=== PATIENT | male | born 1970 | race Caucasian/White ===

== ENCOUNTER 2017-09-25 09:06 | Emergency (ER) | payer BC, MEDICARE ==
[~2017-09-25] VITALS: Ht 182.9 cm; Wt 147.9 kg
[~2017-09-25 09:06] MED LIST: ATORVASTATIN CA20 MG PO; CLOPIDOGREL75 MG PO; ESIDRIX25 MG PO; FEOSOL325 MG PO; ISOSORBIDE DINI20 MG PO; LEVAQUIN500 MG PO; LOSARTAN-HCTZ1 EACH PO; METOPROLOL TART50 MG PO; NIFEDIPINE ER30 M1 PO; NITROGLYCERIN0.4 MG SL; PROCARDIA XL30 MG PO; PROTONIX40 MG PO; SODIUM BICARBO650 MG PO; TERAZOSIN HCL1 MG PO; TORSEMIDE10 MG PO
--- OUTSIDE RECORDS SUMMARY | 2017-09-25 09:10 | XMS REPORT ---
Author Author [facility] Address Unknown Phone Unavailable Care Team Providers Care Brim Setter Name Role Phone SUNSHINE PINA Unavailable Unavailable JEAN COMBS Unavailable Unavailable JACK BENNETT Unavailable Unavailable Problems This patient has no known problems. Allergies, Adverse Reactions, Alerts This patient has no known allergies or adverse reactions. Medications This patient has no known medications. Results Test Description Test Time Test Comments Text Results Atomic Results Result Comments POCT-ACT 2017-04-27 18:57:00 ACTIVATED CLOTTING TIME (BEAKER) (test yyxs=208) 120 sec TESTED AT [place] [address] [id number] 18:57:00* Test Item Value Reference Range Comments ACTIVATED CLOTTING TIME (BEAKER) (test tqee=543) 384 sec TESTED AT [place] [address] [id number] 18:57:00* Test Item Value Reference Range Comments ACTIVATED CLOTTING TIME (BEAKER) (test ymhz=133) 499 sec TESTED AT [place] [address] POCT-GLUCOSE [id number] 07:46:00* Test Item Value Reference Range Comments POC-GLUCOSE METER (BEAKER) (test dbfl=5020) 199 mg/dL 70-110 TESTED AT [place] [address] BASIC METABOLIC [id number] 07:14:00* Test Item Value Reference Range Comments SODIUM (BEAKER) (test znrr=577) 137 meq/L 136-145 POTASSIUM (BEAKER) (test bbdt=208) 4.2 meq/L 3.5-5.1 CHLORIDE (BEAKER) (test memq=239) 99 meq/L 98-107 CO2 (BEAKER) (test qjxs=055) 28 meq/L 22-29 BLOOD UREA NITROGEN (BEAKER) (test vktg=972) 52 mg/dL 7-21 CREATININE (BEAKER) (test bizn=869) 5.41 mg/dL 0.57-1.25 GLUCOSE RANDOM (BEAKER) (test pqvq=367) 178 mg/dL 70-105 CALCIUM (BEAKER) (test ravs=284) 8.6 mg/dL 8.4-10.2 EGFR (BEAKER) (test bzuz=3943) 11 mL/min/1.73 sq m ESTIMATED GFR IS NOT ACCURATE CREATININE CLEARANCE IN PREDICTING GLOMERULAR FILTRATION RATE. ESTIMATED GFR IS NOT APPLICABLE FOR DIALYSIS PATIENTS. CBC W/PLT COUNT & AUTO [id number] 05:18:00* Test Item Value Reference Range Comments WHITE BLOOD CELL COUNT (BEAKER) (test tutu=209) 9.0 K/ L 3.5-10.5 RED BLOOD CELL COUNT (BEAKER) (test zuvl=708) 2.99 M/ L 4.63-6.08 HEMOGLOBIN (BEAKER) (test kyxo=660) 9.3 GM/DL 13.7-17.5 HEMATOCRIT (BEAKER) (test nnrv=420) 29.2 % 40.1-51.0 MEAN CORPUSCULAR VOLUME (BEAKER) (test cmos=820) 97.7 fL 79.0-92.2 MEAN CORPUSCULAR HEMOGLOBIN (BEAKER) (test vmzf=501) 31.1 pg 25.7-32.2 MEAN CORPUSCULAR HEMOGLOBIN CONC (BEAKER) (test gbux=160) 31.8 GM/DL 32.3- 36.5 RED CELL DISTRIBUTION WIDTH (BEAKER) (test ijmu=315) 14.3 % 11.6-14.4 PLATELET COUNT (BEAKER) (test vdpb=964) 119 K/CU MM 150-450 MEAN PLATELET VOLUME (BEAKER) (test crwy=513) 11.8 fL 9.4-12.4 NUCLEATED RED BLOOD CELLS (BEAKER) (test ahxd=154) 0 /100 WBC 0-0 NEUTROPHILS RELATIVE PERCENT (BEAKER) (test gszs=489) 64 % LYMPHOCYTES RELATIVE PERCENT (BEAKER) (test mwxu=713) 22 % MONOCYTES RELATIVE PERCENT (BEAKER) (test zops=027) 11 % EOSINOPHILS RELATIVE PERCENT (BEAKER) (test rplu=224) 2 % BASOPHILS RELATIVE PERCENT (BEAKER) (test xgez=702) 0 % NEUTROPHILS ABSOLUTE COUNT (BEAKER) (test aztp=038) 5.76 K/ L 1.78-5.38 LYMPHOCYTES ABSOLUTE COUNT (BEAKER) (test fqil=934) 2.00 K/ L 1.32-3.57 MONOCYTES ABSOLUTE COUNT (BEAKER) (test ygiu=780) 1.00 K/ L 0.30-0.82 EOSINOPHILS ABSOLUTE COUNT (BEAKER) (test xvsb=871) 0.17 K/ L 0.04-0.54 BASOPHILS ABSOLUTE COUNT (BEAKER) (test vtvg=084) 0.04 K/ L 0.01-0.08 IMMATURE GRANULOCYTES-RELATIVE PERCENT (BEAKER) (test vmtt=8805) 0 % 0-1 POCT-GLUCOSE [id number] 00:25:00* Test Item Value Reference Range Comments POC-GLUCOSE METER (BEAKER) (test brni=8388) 241 mg/dL 70-110 TESTED AT [place] [id number] POCT-GLUCOSE [id number] 00:25:00* Test Item Value Reference Range Comments POC-GLUCOSE METER (BEAKER) (test xnit=4910) 128 mg/dL 70-110 TESTED AT [place] [address] POCT-GLUCOSE [id number] 22:15:00* Test Item Value Reference Range Comments POC-GLUCOSE METER (BEAKER) (test gvyy=9180) 171 mg/dL 70-110 TESTED AT [place] [address] POCT-GLUCOSE [id number] 17:41:00* Test Item Value Reference Range Comments POC-GLUCOSE METER (BEAKER) (test hkxp=3590) 210 mg/dL 70-110 [address]ED AT [address] [address] POCT-GLUCOSE [id number] 12:36:00* Test Item Value Reference Range Comments POC-GLUCOSE METER (BEAKER) (test gfhv=5688) 209 mg/dL 70-110 TESTED AT [address] [address] POCT-GLUCOSE [id number] 09:00:00* Test Item Value Reference Range Comments POC-GLUCOSE METER (BEAKER) (test nvmw=9763) 214 mg/dL 70-110 TESTED AT [place] [address] BASIC METABOLIC [id number] 06:35:00* Test Item Value Reference Range Comments SODIUM (BEAKER) (test hmip=372) 140 meq/L 136-145 POTASSIUM (BEAKER) (test mazx=473) 4.0 meq/L 3.5-5.1 CHLORIDE (BEAKER) (test ciff=021) 102 meq/L 98-107 CO2 (BEAKER) (test curq=984) 28 meq/L 22-29 BLOOD UREA NITROGEN (BEAKER) (test hdxv=292) 36 mg/dL 7-21 CREATININE (BEAKER) (test zohh=981) 4.38 mg/dL 0.57-1.25 GLUCOSE RANDOM (BEAKER) (test nvnr=994) 203 mg/dL 70-105 CALCIUM (BEAKER) (test onkf=563) 9.0 mg/dL 8.4-10.2 EGFR (BEAKER) (test oxog=6588) 15 mL/min/1.73 sq m ESTIMATED GFR IS NOT ACCURATE CREATININE CLEARANCE IN PREDICTING GLOMERULAR FILTRATION RATE. ESTIMATED GFR IS NOT APPLICABLE FOR DIALYSIS PATIENTS. RAD, CHEST, 1 VIEW, NON [id number] 06:33:00Reason for exam:->pulmonary congestionShould this be performed at the bedside?->YesFINAL REPORT RAD, CHEST, 1 VIEW, NON DEPT INDICATION: pulmonary congestion COMPARISON: Prior day's exam FINDINGS: Portable frontal view of the chest. IMPRESSION: Support Lines: [place] catheter has been removed. Surgical drains are present, unchanged. Lungs and pleura: Minimal left subsegmental atelectasis and trace effusion. No pneumothorax.Heart and mediastinum: Stable contours. Stable surgical changes.Additional findings: None. Signed: JR Hogan Robert MDReport Verified Date/Time: 04/24/2017 06:33:56 Reading Location: [facility] C013Y CT Body Reading Room W/PLT COUNT & AUTO [id number] 06:08:00* Test Item Value Reference Range Comments WHITE BLOOD CELL COUNT (BEAKER) (test xvxg=471) 9.2 K/ L 3.5-10.5 RED BLOOD CELL COUNT (BEAKER) (test fdxx=042) 3.22 M/ L 4.63-6.08 HEMOGLOBIN (BEAKER) (test ostq=700) 9.9 GM/DL 13.7-17.5 HEMATOCRIT (BEAKER) (test jcht=263) 31.2 % 40.1-51.0 MEAN CORPUSCULAR VOLUME (BEAKER) (test xjci=510) 96.9 fL 79.0-92.2 MEAN CORPUSCULAR HEMOGLOBIN (BEAKER) (test sdus=064) 30.7 pg 25.7-32.2 MEAN CORPUSCULAR HEMOGLOBIN CONC (BEAKER) (test stqk=881) 31.7 GM/DL 32.3- 36.5 RED CELL DISTRIBUTION WIDTH (BEAKER) (test zgbp=027) 14.4 % 11.6-14.4 PLATELET COUNT (BEAKER) (test ljnd=856) 118 K/CU MM 150-450 MEAN PLATELET VOLUME (BEAKER) (test meop=571) 11.4 fL 9.4-12.4 NUCLEATED RED BLOOD CELLS (BEAKER) (test ullf=564) 0 /100 WBC 0-0 NEUTROPHILS RELATIVE PERCENT (BEAKER) (test jpos=338) 70 % LYMPHOCYTES RELATIVE PERCENT (BEAKER) (test jvfd=577) 18 % MONOCYTES RELATIVE PERCENT (BEAKER) (test rnni=130) 11 % EOSINOPHILS RELATIVE PERCENT (BEAKER) (test njsj=684) 0 % BASOPHILS RELATIVE PERCENT (BEAKER) (test adjb=400) 1 % NEUTROPHILS ABSOLUTE COUNT (BEAKER) (test qhhh=749) 6.40 K/ L 1.78-5.38 LYMPHOCYTES ABSOLUTE COUNT (BEAKER) (test zuai=641) 1.64 K/ L 1.32-3.57 MONOCYTES ABSOLUTE COUNT (BEAKER) (test olah=254) 0.99 K/ L 0.30-0.82 EOSINOPHILS ABSOLUTE COUNT (BEAKER) (test eksx=444) 0.04 K/ L 0.04-0.54 BASOPHILS ABSOLUTE COUNT (BEAKER) (test noaq=764) 0.05 K/ L 0.01-0.08 IMMATURE GRANULOCYTES-RELATIVE PERCENT (BEAKER) (test ojyz=4998) 0 % 0-1 HEPATITIS B SURFACE [id number] 03:15:00* Test Item Value Reference Range Comments HEPATITIS B SURFACE ANTIGEN (2) (BEAKER) (test vypp=8148) Nonreactive Nonreactive HEPATITIS B SURFACE [id number] 00:46:00* Test Item Value Reference Range Comments HEPATITIS B SURFACE ANTIGEN (2) (BEAKER) (test ictd=0558) Nonreactive Nonreactive POCT-GLUCOSE [id number] 00:00:00* Test Item Value Reference Range Comments POC-GLUCOSE METER (BEAKER) (test hqto=9827) 163 mg/dL 70-110 TESTED AT [place] [id number] [facility] [address] POCT-GLUCOSE [id number] 16:44:00* Test Item Value Reference Range Comments POC-GLUCOSE METER (BEAKER) (test mqcy=3628) 214 mg/dL 70-110 TESTED AT [address] [address] POCT-GLUCOSE [id number] 13:40:00* Test Item Value Reference Range Comments POC-GLUCOSE METER (BEAKER) (test oiyn=4333) 233 mg/dL 70-110 TESTED AT [address] [address] RAD, CHEST, 1 VIEW, NON [id number] 08:38:00Reason for exam:->s/p cardiac surgeryFINAL REPORT Chest one view INDICATION: Cardiac surgery COMPARISON: 04/22/2017 IMPRESSION: ET and NG tube have been removed. Right jugular PA catheter extends to the pulmonary outflow tract. Left chest tube and mediastinal drain and median sternotomy changes are present. Small volume pericardial gas is again noted. The cardiac silhouette is enlarged. There are low lung volumes with vascular congestion and increased interstitial, perihilar, and basilar opacities suggesting worsening atelectasis and edema. Pneumonitis should be excluded clinically. Minimal pleural effusions may be present. No pneumothorax is seen. Signed: Jr Brunner MDReport Verified Date/Time: 04/23/2017 08:38:50 Reading Location: [facility] Radiology Reading Room -GLUCOSE [id number] 06:13:00* Test Item Value Reference Range Comments POC-GLUCOSE METER (BEAKER) (test bkgw=6830) 134 mg/dL 70-110 TESTED AT [address] [address] BASIC METABOLIC [id number] 05:35:00* Test Item Value Reference Range Comments SODIUM (BEAKER) (test lkph=439) 137 meq/L 136-145 POTASSIUM (BEAKER) (test wnwk=343) 4.3 meq/L 3.5-5.1 CHLORIDE (BEAKER) (test hcxg=752) 100 meq/L 98-107 CO2 (BEAKER) (test mbtv=714) 24 meq/L 22-29 BLOOD UREA NITROGEN (BEAKER) (test acjp=503) 54 mg/dL 7-21 CREATININE (BEAKER) (test sxcl=237) 5.19 mg/dL 0.57-1.25 GLUCOSE RANDOM (BEAKER) (test gzce=353) 129 mg/dL 70-105 CALCIUM (BEAKER) (test kkdz=517) 9.1 mg/dL 8.4-10.2 EGFR (BEAKER) (test lhmq=5494) 12 mL/min/1.73 sq m ESTIMATED GFR IS NOT ACCURATE CREATININE CLEARANCE IN PREDICTING GLOMERULAR FILTRATION RATE. ESTIMATED GFR IS NOT APPLICABLE FOR DIALYSIS PATIENTS. [id number] 05:19:00* Test Item Value Reference Range Comments PHOSPHORUS (BEAKER) (test bfhn=293) 5.2 mg/dL 2.3-4.7 [id number] 05:19:00* Test Item Value Reference Range Comments MAGNESIUM (BEAKER) (test rjhb=194) 2.4 mg/dL 1.6-2.6 CBC W/PLT COUNT & AUTO [id number] 03:43:00* Test Item Value Reference Range Comments WHITE BLOOD CELL COUNT (BEAKER) (test mkyo=442) 10.1 K/ L 3.5-10.5 RED BLOOD CELL COUNT (BEAKER) (test cgqx=367) 3.29 M/ L 4.63-6.08 HEMOGLOBIN (BEAKER) (test reqp=028) 10.2 GM/DL 13.7-17.5 HEMATOCRIT (BEAKER) (test vzny=324) 31.5 % 40.1-51.0 MEAN CORPUSCULAR VOLUME (BEAKER) (test mnzf=245) 95.7 fL 79.0-92.2 MEAN CORPUSCULAR HEMOGLOBIN (BEAKER) (test ljgn=329) 31.0 pg 25.7-32.2 MEAN CORPUSCULAR HEMOGLOBIN CONC (BEAKER) (test xnlc=581) 32.4 GM/DL 32.3- 36.5 RED CELL DISTRIBUTION WIDTH (BEAKER) (test musz=368) 14.1 % 11.6-14.4 PLATELET COUNT (BEAKER) (test mwjc=545) 134 K/CU MM 150-450 MEAN PLATELET VOLUME (BEAKER) (test lknu=589) 11.0 fL 9.4-12.4 NUCLEATED RED BLOOD CELLS (BEAKER) (test hzxm=333) 0 /100 WBC 0-0 NEUTROPHILS RELATIVE PERCENT (BEAKER) (test vbln=737) 78 % LYMPHOCYTES RELATIVE PERCENT (BEAKER) (test ngzb=081) 11 % MONOCYTES RELATIVE PERCENT (BEAKER) (test tjzn=011) 11 % EOSINOPHILS RELATIVE PERCENT (BEAKER) (test kmta=441) 0 % BASOPHILS RELATIVE PERCENT (BEAKER) (test ycfc=702) 0 % NEUTROPHILS ABSOLUTE COUNT (BEAKER) (test cwdj=732) 7.90 K/ L 1.78-5.38 LYMPHOCYTES ABSOLUTE COUNT (BEAKER) (test uusc=303) 1.06 K/ L 1.32-3.57 MONOCYTES ABSOLUTE COUNT (BEAKER) (test celp=266) 1.06 K/ L 0.30-0.82 EOSINOPHILS ABSOLUTE COUNT (BEAKER) (test kmyl=199) 0.01 K/ L 0.04-0.54 BASOPHILS ABSOLUTE COUNT (BEAKER) (test asdw=882) 0.03 K/ L 0.01-0.08 IMMATURE GRANULOCYTES-RELATIVE PERCENT (BEAKER) (test pvrm=9392) 0 % 0-1 POCT-GLUCOSE [id number] 23:37:00* Test Item Value Reference Range Comments POC-GLUCOSE METER (BEAKER) (test kkwf=0649) 135 mg/dL 70-110 TESTED AT [facility] [address] [facility] [address] POCT-GLUCOSE [id number] 18:55:00* Test Item Value Reference Range Comments POC-GLUCOSE METER (BEAKER) (test bmij=2444) 189 mg/dL 70-110 TESTED AT [facility] [address] [facility] [address] POCT-GLUCOSE [id number] 17:35:00* Test Item Value Reference Range Comments POC-GLUCOSE METER (BEAKER) (test mesu=2616) 200 mg/dL 70-110 TESTED AT [facility] [address] [facility] [address] RAD, CHEST, 1 VIEW, NON [id number] 16:54:00Reason for exam:->sp cardiac surgery/intubationShould this be performed at the bedside?->YesFINAL REPORT Chest, AP view. History: Postoperative. Comparison: Cardiac surgery. Discussion: Interval sternotomy. Endotracheal tube in satisfactory position. Sternal/pleural drain noted on the left. Right IJ pulmonary artery catheter present with tip near main pulmonary artery. No focal airspace disease, pleural effusion or pneumothorax. Signed: Dorothy Cordova MDReport Verified Date/Time: 04/22/2017 16:54:03 Reading Location: [facility] Reading Room Electronically signed by: DOROTHY CORDOVA M.D. on 2016 04:54 PM [id number] 16:34:00* Test Item Value Reference Range Comments POTASSIUM (BEAKER) (test oyfc=336) 4.1 meq/L 3.5-5.1 [id number] 16:34:00* Test Item Value Reference Range Comments GLUCOSE RANDOM (BEAKER) (test umrb=781) 209 mg/dL 70-105 BASIC METABOLIC [id number] 16:34:00* Test Item Value Reference Range Comments SODIUM (BEAKER) (test bsdp=395) 139 meq/L 136-145 POTASSIUM (BEAKER) (test xwyu=599) 4.1 meq/L 3.5-5.1 CHLORIDE (BEAKER) (test sfeb=221) 99 meq/L 98-107 CO2 (BEAKER) (test uwzb=935) 26 meq/L 22-29 BLOOD UREA NITROGEN (BEAKER) (test pjni=261) 52 mg/dL 7-21 CREATININE (BEAKER) (test elnf=722) 4.73 mg/dL 0.57-1.25 GLUCOSE RANDOM (BEAKER) (test xhfk=395) 209 mg/dL 70-105 CALCIUM (BEAKER) (test qvuj=646) 9.3 mg/dL 8.4-10.2 EGFR (BEAKER) (test grvs=8137) 13 mL/min/1.73 sq m ESTIMATED GFR IS NOT ACCURATE CREATININE CLEARANCE IN PREDICTING GLOMERULAR FILTRATION RATE. ESTIMATED GFR IS NOT APPLICABLE FOR DIALYSIS PATIENTS. LACTIC ACID, ARTERIAL, WHOLE [id number] 16:31:00* Test Item Value Reference Range Comments LACTATE BLOOD ARTERIAL (2) (BEAKER) (test dmfl=7924) 1.7 mmol/L 0.5-2.2 Effective 09/18/2015: Units/Reference Range ChangeNew: 0.5-2.2 mmol/L Previous: 5 -20 mg/dLOXYGEN SATURATION, [id number] 16:10:00* Test Item Value Reference Range Comments O2 SATURATION (MEASURED) (BEAKER) (test hmgh=8041) 84.7 % CALCIUM, [id number] 16:09:00* Test Item Value Reference Range Comments CALCIUM IONIZED (BEAKER) (test xoks=213) 1.10 mmol/L 1.12-1.27 PH, BLOOD (BEAKER) (test ipmz=6930) 7.47 CBC (HEMOGRAM ONLY)2017-04-22 16:09:00* Test Item Value Reference Range Comments WHITE BLOOD CELL COUNT (BEAKER) (test xtvg=070) 12.2 K/ L 3.5-10.5 RED BLOOD CELL COUNT (BEAKER) (test frvu=013) 3.22 M/ L 4.63-6.08 HEMOGLOBIN (BEAKER) (test ahyq=419) 10.1 GM/DL 13.7-17.5 HEMATOCRIT (BEAKER) (test sbsm=447) 30.2 % 40.1-51.0 MEAN CORPUSCULAR VOLUME (BEAKER) (test mzcp=587) 93.8 fL 79.0-92.2 MEAN CORPUSCULAR HEMOGLOBIN (BEAKER) (test jzkk=640) 31.4 pg 25.7-32.2 MEAN CORPUSCULAR HEMOGLOBIN CONC (BEAKER) (test clut=774) 33.4 GM/DL 32.3- 36.5 RED CELL DISTRIBUTION WIDTH (BEAKER) (test sspc=131) 14.0 % 11.6-14.4 PLATELET COUNT (BEAKER) (test bpfx=174) 134 K/CU MM 150-450 MEAN PLATELET VOLUME (BEAKER) (test vgpx=909) 10.6 fL 9.4-12.4 NUCLEATED RED BLOOD CELLS (BEAKER) (test odgn=608) 0 /100 WBC 0-0 BLOOD GAS, [id number] 16:06:00* Test Item Value Reference Range Comments PH ARTERIAL (BEAKER) (test aqcn=415) 7.51 7.35-7.45 PCO2 ARTERIAL (BEAKER) (test vwjy=632) 36 mmHg 35-45 PO2 ARTERIAL (BEAKER) (test psmz=367) 265 mmHg 80-90 O2 SATURATION ARTERIAL (BEAKER) (test gmsk=008) 99.7 % 96.0-97.0 HCO3 ARTERIAL (BEAKER) (test trmd=727) 29 mmol/L 21-29 BASE EXCESS ARTERIAL (BEAKER) (test uzyq=869) 4.8 mmol/L -2.0-3.0 PATIENT TEMPERATURE (BEAKER) (test edix=2600) 34.5 C FIO2 (BEAKER) (test qnva=8135) 60.0 % GLUCOSE-STAT [id number] 16:06:00* Test Item Value Reference Range Comments GLUCOSE RANDOM (BEAKER) (test mlbo=101) 198 mg/dL 70-110 HGB/HCT (H&H) - STAT [id number] 16:06:00* Test Item Value Reference Range Comments HEMOGLOBIN (BEAKER) (test tupi=123) 10.7 g/dL 13.0-16.8 HEMATOCRIT (BEAKER) (test nhaz=398) 31.0 % 40.0-50.0 SODIUM NA-STAT [id number] 16:05:00* Test Item Value Reference Range Comments SODIUM (BEAKER) (test vcki=362) 135 meq/L 135-148 POTASSIUM-STAT [id number] 16:05:00* Test Item Value Reference Range Comments POTASSIUM (BEAKER) (test qjco=144) 3.8 meq/L 3.6-5.5 BLOOD GAS, [id number] 13:56:00* Test Item Value Reference Range Comments PH ARTERIAL (BEAKER) (test gqud=275) 7.55 7.35-7.45 PCO2 ARTERIAL (BEAKER) (test sgbq=458) 34 mmHg 35-45 PO2 ARTERIAL (BEAKER) (test sozp=583) 261 mmHg 80-90 O2 SATURATION ARTERIAL (BEAKER) (test zkuy=778) 99.7 % 96.0-97.0 HCO3 ARTERIAL (BEAKER) (test xrqs=188) 29 mmol/L 21-29 BASE EXCESS ARTERIAL (BEAKER) (test owns=521) 5.7 mmol/L -2.0-3.0 PATIENT TEMPERATURE (BEAKER) (test qodh=8369) 34.7 C FIO2 (BEAKER) (test luva=4879) 60.0 % SODIUM NA-STAT [id number] 13:56:00* Test Item Value Reference Range Comments SODIUM (BEAKER) (test ncro=620) 134 meq/L 135-148 GLUCOSE-STAT [id number] 13:56:00* Test Item Value Reference Range Comments GLUCOSE RANDOM (BEAKER) (test ogxv=588) 179 mg/dL 70-110 HGB/HCT (H&H) - STAT [id number] 13:56:00* Test Item Value Reference Range Comments HEMOGLOBIN (BEAKER) (test xcrp=689) 11.3 g/dL 13.0-16.8 HEMATOCRIT (BEAKER) (test dvqp=141) 33.0 % 40.0-50.0 CALCIUM, [id number] 13:56:00* Test Item Value Reference Range Comments CALCIUM IONIZED (BEAKER) (test djkl=321) 1.01 mmol/L 1.12-1.27 PH, BLOOD (BEAKER) (test gxrb=6595) 7.51 POTASSIUM-STAT [id number] 13:55:00* Test Item Value Reference Range Comments POTASSIUM (BEAKER) (test pmgd=295) 3.7 meq/L 3.6-5.5 SODIUM NA-STAT [id number] 12:03:00* Test Item Value Reference Range Comments SODIUM (BEAKER) (test qdrq=182) 138 meq/L 135-148 BLOOD GAS, [id number] 12:02:00* Test Item Value Reference Range Comments PH ARTERIAL (BEAKER) (test pvdp=750) 7.49 7.35-7.45 PCO2 ARTERIAL (BEAKER) (test eykw=761) 42 mm Hg 35-45 PO2 ARTERIAL (BEAKER) (test qrms=083) 414 mm Hg 80-90 O2 SATURATION ARTERIAL (BEAKER) (test efny=956) 99.8 % 96.0-97.0 HCO3 ARTERIAL (BEAKER) (test mmrp=280) 31 mmol/L 21-29 BASE EXCESS ARTERIAL (BEAKER) (test vbug=045) 6.7 mmol/L -2.0-3.0 PATIENT TEMPERATURE (BEAKER) (test jxwh=6749) 36.0 FIO2 (BEAKER) (test gmlt=2360) 97 GLUCOSE-STAT [id number] 12:02:00* Test Item Value Reference Range Comments GLUCOSE RANDOM (BEAKER) (test ncrt=472) 194 mg/dL 70-110 HGB/HCT (H&H) - STAT [id number] 12:02:00* Test Item Value Reference Range Comments HEMOGLOBIN (BEAKER) (test kuql=945) 11.6 GM/DL 13.0-16.8 HEMATOCRIT (BEAKER) (test pjse=367) 34.0 % 40.0-50.0 POTASSIUM-STAT [id number] 12:02:00* Test Item Value Reference Range Comments POTASSIUM (BEAKER) (test bajd=752) 4.0 meq/L 3.6-5.5 RAD, CHEST, 2 [id number] 15:51:00Reason for exam:->pre opFINAL REPORT Chest, 2 views. Clinical History: pre op Comparison Study : June 23, 2016 Findings: The heart and lungs are within normal limits. The pleural spaces are clear. No significant bony or soft tissue abnormalities are seen. Impression: No active cardiopulmonary disease. Signed: Richard Arisa Verified Date/Time: 04/20/2017 15:51:22 Reading Location: [address] Radiology Reading Room ALYSIS W/ [id number] 15:47:00* Test Item Value Reference Range Comments COLOR (BEAKER) (test dklz=016) Light Yellow CLARITY (BEAKER) (test mvne=550) Clear SPECIFIC GRAVITY UA (BEAKER) (test ruej=671) 1.006 1.001-1.035 PH UA (BEAKER) (test wllh=312) 7.0 5.0-8.0 PROTEIN UA (BEAKER) (test zfjb=901) 50 mg/dL Negative GLUCOSE UA (BEAKER) (test lcch=872) 70 mg/dL Negative KETONES UA (BEAKER) (test pnxw=605) Negative Negative BILIRUBIN UA (BEAKER) (test kjnj=375) Negative Negative BLOOD UA (BEAKER) (test jjbn=490) Negative Negative NITRITE UA (BEAKER) (test nbgx=429) Negative Negative LEUKOCYTE ESTERASE UA (BEAKER) (test hcyv=219) Negative Negative UROBILINOGEN UA (BEAKER) (test phku=060) 0.2 mg/dL 0.2-1.0 RBC UA (BEAKER) (test ttac=021) 0 /HPF WBC UA (BEAKER) (test fatc=731) 2 /HPF SQUAMOUS EPITHELIAL (BEAKER) (test lntl=117) 3 /HPF SOURCE(BEAKER) (test egch=9183) BASIC METABOLIC [id number] 15:43:00* Test Item Value Reference Range Comments SODIUM (BEAKER) (test dzoo=332) 141 meq/L 136-145 POTASSIUM (BEAKER) (test lbac=842) 5.0 meq/L 3.5-5.1 CHLORIDE (BEAKER) (test otke=362) 97 meq/L 98-107 CO2 (BEAKER) (test lfcv=859) 31 meq/L 22-29 BLOOD UREA NITROGEN (BEAKER) (test wfym=293) 55 mg/dL 7-21 CREATININE (BEAKER) (test yfgk=809) 4.87 mg/dL 0.57-1.25 GLUCOSE RANDOM (BEAKER) (test bjkr=847) 152 mg/dL 70-105 CALCIUM (BEAKER) (test jnhv=350) 10.1 mg/dL 8.4-10.2 EGFR (BEAKER) (test tbot=9094) 13 mL/min/1.73 sq m ESTIMATED GFR IS NOT ACCURATE CREATININE CLEARANCE IN PREDICTING GLOMERULAR FILTRATION RATE. ESTIMATED GFR IS NOT APPLICABLE FOR DIALYSIS PATIENTS. [id number] 15:34:00* Test Item Value Reference Range Comments PARTIAL THROMBOPLASTIN TIME (BEAKER) (test nirn=467) 27.3 seconds 22.5-36.0 PROTHROMBIN TIME/[id number] 15:33:00* Test Item Value Reference Range Comments PROTIME (BEAKER) (test bdiu=339) 11.9 seconds 11.7-14.7 INR (BEAKER) (test obzm=475) 0.9 <=5.9 RECOMMENDED COUMADIN/WARFARIN INR THERAPY RANGESSTANDARD DOSE: 2.0 - 3.0 Includes: PROPHYLAXIS for venous thrombosis, systemic embolization; TREATMENT for venous thrombosis and/or pulmonary embolus.HIGH RISK: Target INR is 2.5-3.5 for patients with mechanical heart valves.CBC W/PLT COUNT & AUTO [id number] 15:21:00* Test Item Value Reference Range Comments WHITE BLOOD CELL COUNT (BEAKER) (test rigv=212) 9.1 K/ L 3.5-10.5 RED BLOOD CELL COUNT (BEAKER) (test nlkf=583) 3.97 M/ L 4.63-6.08 HEMOGLOBIN (BEAKER) (test znkv=515) 12.4 GM/DL 13.7-17.5 HEMATOCRIT (BEAKER) (test qobz=115) 38.5 % 40.1-51.0 MEAN CORPUSCULAR VOLUME (BEAKER) (test grjr=783) 97.0 fL 79.0-92.2 MEAN CORPUSCULAR HEMOGLOBIN (BEAKER) (test hcct=546) 31.2 pg 25.7-32.2 MEAN CORPUSCULAR HEMOGLOBIN CONC (BEAKER) (test hxne=013) 32.2 GM/DL 32.3- 36.5 RED CELL DISTRIBUTION WIDTH (BEAKER) (test xcii=327) 13.9 % 11.6-14.4 PLATELET COUNT (BEAKER) (test lscr=892) 230 K/CU MM 150-450 MEAN PLATELET VOLUME (BEAKER) (test qgnq=640) 10.4 fL 9.4-12.4 NUCLEATED RED BLOOD CELLS (BEAKER) (test fosl=017) 0 /100 WBC 0-0 NEUTROPHILS RELATIVE PERCENT (BEAKER) (test xose=099) 60 % LYMPHOCYTES RELATIVE PERCENT (BEAKER) (test usbh=991) 28 % MONOCYTES RELATIVE PERCENT (BEAKER) (test imsu=429) 9 % EOSINOPHILS RELATIVE PERCENT (BEAKER) (test bgjp=024) 2 % BASOPHILS RELATIVE PERCENT (BEAKER) (test siyq=639) 1 % NEUTROPHILS ABSOLUTE COUNT (BEAKER) (test jryc=207) 5.46 K/ L 1.78-5.38 LYMPHOCYTES ABSOLUTE COUNT (BEAKER) (test ccyt=777) 2.53 K/ L 1.32-3.57 MONOCYTES ABSOLUTE COUNT (BEAKER) (test dgel=162) 0.85 K/ L 0.30-0.82 EOSINOPHILS ABSOLUTE COUNT (BEAKER) (test nwzd=593) 0.15 K/ L 0.04-0.54 BASOPHILS ABSOLUTE COUNT (BEAKER) (test twqo=319) 0.05 K/ L 0.01-0.08 IMMATURE GRANULOCYTES-RELATIVE PERCENT (BEAKER) (test rhqw=1298) 1 % 0-1 [id number] 18:52:00* Test Item Value Reference Range Comments ACTIVATED CLOTTING TIME (BEAKER) (test lvpw=009) 158 sec TESTED AT [place] [address] [id number] 18:16:00* Test Item Value Reference Range Comments ACTIVATED CLOTTING TIME (BEAKER) (test kfay=359) 169 sec TESTED AT [place] [address] [id number] 17:41:00* Test Item Value Reference Range Comments ACTIVATED CLOTTING TIME (BEAKER) (test bbsk=870) 175 sec TESTED AT [place] [address] [id number] 16:39:00* Test Item Value Reference Range Comments ACTIVATED CLOTTING TIME (BEAKER) (test uixv=249) 202 sec TESTED AT [place] [address] [id number] 15:45:00* Test Item Value Reference Range Comments ACTIVATED CLOTTING TIME (BEAKER) (test nbpg=759) 202 sec TESTED AT [place] [address] BASIC METABOLIC [id number] 12:29:00* Test Item Value Reference Range Comments SODIUM (BEAKER) (test ntyr=429) 138 meq/L 136-145 POTASSIUM (BEAKER) (test kyci=916) 4.5 meq/L 3.5-5.1 CHLORIDE (BEAKER) (test oteu=877) 97 meq/L 98-107 CO2 (BEAKER) (test lyng=440) 29 meq/L 22-29 BLOOD UREA NITROGEN (BEAKER) (test slhw=445) 55 mg/dL 7-21 CREATININE (BEAKER) (test fmzi=610) 5.51 mg/dL 0.57-1.25 GLUCOSE RANDOM (BEAKER) (test tsee=843) 279 mg/dL 70-105 CALCIUM (BEAKER) (test urwr=505) 9.6 mg/dL 8.4-10.2 EGFR (BEAKER) (test lckw=2439) 11 mL/min/1.73 sq m ESTIMATED GFR IS NOT ACCURATE CREATININE CLEARANCE IN PREDICTING GLOMERULAR FILTRATION RATE. ESTIMATED GFR IS NOT APPLICABLE FOR DIALYSIS PATIENTS. PT/[id number] 12:19:00* Test Item Value Reference Range Comments PROTIME (BEAKER) (test zqou=037) 12.7 seconds 11.7-14.7 INR (BEAKER) (test rfyh=560) 1.0 <=5.9 PARTIAL THROMBOPLASTIN TIME (BEAKER) (test pvsd=323) 25.8 seconds 22.5-36.0 RECOMMENDED COUMADIN/WARFARIN INR THERAPY RANGESSTANDARD DOSE: 2.0 - 3.0 Includes: PROPHYLAXIS for venous thrombosis, systemic embolization; TREATMENT for venous thrombosis and/or pulmonary embolus.HIGH RISK: Target INR is 2.5-3.5 for patients with mechanical heart valves.CBC W/PLT COUNT & AUTO [id number] 12:17:00* Test Item Value Reference Range Comments WHITE BLOOD CELL COUNT (BEAKER) (test tdmz=505) 13.9 K/ L 3.5-10.5 RED BLOOD CELL COUNT (BEAKER) (test gjca=573) 3.96 M/ L 4.63-6.08 HEMOGLOBIN (BEAKER) (test pmnm=373) 12.5 GM/DL 13.7-17.5 HEMATOCRIT (BEAKER) (test ylgh=388) 37.1 % 40.1-51.0 MEAN CORPUSCULAR VOLUME (BEAKER) (test ugnr=070) 93.7 fL 79.0-92.2 MEAN CORPUSCULAR HEMOGLOBIN (BEAKER) (test jkmj=234) 31.6 pg 25.7-32.2 MEAN CORPUSCULAR HEMOGLOBIN CONC (BEAKER) (test lhpf=793) 33.7 GM/DL 32.3- 36.5 RED CELL DISTRIBUTION WIDTH (BEAKER) (test qqir=456) 14.0 % 11.6-14.4 PLATELET COUNT (BEAKER) (test qlge=077) 222 K/CU MM 150-450 MEAN PLATELET VOLUME (BEAKER) (test peud=595) 10.5 fL 9.4-12.4 NUCLEATED RED BLOOD CELLS (BEAKER) (test mlzs=405) 0 /100 WBC 0-0 NEUTROPHILS RELATIVE PERCENT (BEAKER) (test fmoz=083) 90 % LYMPHOCYTES RELATIVE PERCENT (BEAKER) (test pokk=252) 7 % MONOCYTES RELATIVE PERCENT (BEAKER) (test bvlk=609) 2 % EOSINOPHILS RELATIVE PERCENT (BEAKER) (test oorw=900) 0 % BASOPHILS RELATIVE PERCENT (BEAKER) (test pfeu=139) 0 % NEUTROPHILS ABSOLUTE COUNT (BEAKER) (test wibz=569) 12.57 K/ L 1.78-5.38 LYMPHOCYTES ABSOLUTE COUNT (BEAKER) (test ubzz=042) 0.99 K/ L 1.32-3.57 MONOCYTES ABSOLUTE COUNT (BEAKER) (test vbex=090) 0.28 K/ L 0.30-0.82 EOSINOPHILS ABSOLUTE COUNT (BEAKER) (test hdny=849) 0.00 K/ L 0.04-0.54 BASOPHILS ABSOLUTE COUNT (BEAKER) (test ujmc=309) 0.03 K/ L 0.01-0.08 IMMATURE GRANULOCYTES-RELATIVE PERCENT (BEAKER) (test oqlz=2720) 0 % 0-1 HLA [id number] 15:04:00* Test Item Value Reference Range Comments HLA RESULT (BEAKER) (test ydnn=5532) See Scanned Report HLA-A AG1 (BEAKER) (test esnu=6589) HLA-A AG2 (BEAKER) (test oshs=8027) HLA-B AG1 (BEAKER) (test izhq=6264) HLA-B AG2 (BEAKER) (test xhey=1412) HLA-C AG1 (BEAKER) (test arca=2679) HLA-C AG2 (BEAKER) (test eezz=5683) HLA-DR AG1 (BEAKER) (test digz=7579) HLA-DR AG2 (BEAKER) (test vtra=1991) HLA-DQ AG1 (BEAKER) (test xrrp=0118) HLA-DQ AG2 (BEAKER) (test bwom=8730) HLA-DRW (BEAKER) (test arjk=1275) AB SPECIFICITY CLASS [id number] 07:49:00* Test Item Value Reference Range Comments DATE OF SERUM (BEAKER) (test itcp=7982) [id number] SERUM # (BEAKER) (test pzga=9212) [id number] AB SPECIFICITY CLASS I (BEAKER) (test aarj=0704) See Scanned Report FLOW PRA CLASS I AND [id number] 11:56:00* Test Item Value Reference Range Comments DATE OF SERUM (BEAKER) (test hjim=3575) [id number] SERUM # (BEAKER) (test gknt=0866) [id number] FLOW PRA CLASS I AND II (test pass=0514) See Scanned Report URINE [id number] 10:04:00* Test Item Value Reference Range Comments CULTURE (BEAKER) (test bjar=9754) 50-59,000 col/mL skin marina [id number] 11:55:00* Test Item Value Reference Range Comments RPR SCREEN (BEAKER) (test mrll=389) Nonreactive Nonreactive U/S, ABDOMINAL, [id number] 14:33:00Reason for Exam:->esrd; eval for renal txpFINAL REPORT Ultrasound of the abdomen. Clinical History: esrd; eval for renal txp. Comparison study: None. Findings: The liver is normal in echotexture with no focal masses. It measures 14.5 cm in length. There is no evidence of intra or extrahepatic biliary dilatation with the common bile duct measuring six mm. The main portal vein diameter is 1.1 cm. Color sludge is seen and no stones or sonographic evidence of cholecystitis is noted. The spleen measures 10.9 cm and is unremarkable. The pancreas is within normal limits. No ascites is present. The right kidney measures 10.4 cm and left kidney measures 11.2 cm. A calcification is seen in the lower pole of the left kidney, possibly a nonocclusive calculus. The proximal aorta and IVC are unremarkable. No pleural effusions are seen. Impression: 1. Calcification in the lower pole of the left kidney, most likely nonocclusive calculus.2. Gallbladder sludge. Signed: Richard Arias MDReport Verified Date/Time: 2016 14:33:42 Reading Location: [address] Ultrasound Reading Room GLOBIN [id number] 14:25:00* Test Item Value Reference Range Comments HEMOGLOBIN A1C (BEAKER) (test fmnn=227) 7.1 % 4.3-6.1 CYTOMEGALOVIRUS ANTIBODY, [id number] 14:24:00* Test Item Value Reference Range Comments CYTOMEGALOVIRUS IGM ANTIBODY (BEAKER) (test bdfw=517) Negative EBV-VCA ANTIBODY, [id number] 14:24:00* Test Item Value Reference Range Comments VALENTIN-LOBO VCA IGG (BEAKER) (test yejd=270) Positive EBV-VCA ANTIBODY, [id number] 14:24:00* Test Item Value Reference Range Comments VALENTIN-LOBO VCA IGM (BEAKER) (test dkdf=582) Negative VARICELLA ZOSTER ANTIBODY, [id number] 14:23:00* Test Item Value Reference Range Comments VARICELLA ZOSTER IGG (AL) (BEAKER) (test ifpi=3930) 8.0 Al VARICELLA ZOSTER RESULT INTERPRETATIONS: <=0.8 Al Nonreactive: Presumed non-immune to VZV 0.9-1.0 Al Equivocal >=1.1 Al Reactive: Presumed immune to VZVCYTOMEGALOVIRUS ANTIBODY, [id number] 14:23 :00* Test Item Value Reference Range Comments CYTOMEGALOVIRUS IGG ANTIBODY (BEAKER) (test iqcc=406) Positive URINALYSIS W/ [id number] 13:24:00* Test Item Value Reference Range Comments COLOR (BEAKER) (test ngys=557) Yellow CLARITY (BEAKER) (test sqoy=396) Clear SPECIFIC GRAVITY UA (BEAKER) (test vkpx=112) 1.013 1.001-1.035 PH UA (BEAKER) (test nttl=503) 5.5 5.0-8.0 PROTEIN UA (BEAKER) (test aetu=907) 100 mg/dL Negative GLUCOSE UA (BEAKER) (test qksk=631) Negative Negative KETONES UA (BEAKER) (test cpih=923) Negative Negative BILIRUBIN UA (BEAKER) (test tmbu=458) Negative Negative BLOOD UA (BEAKER) (test evrv=886) Trace Negative NITRITE UA (BEAKER) (test wfli=088) Negative Negative LEUKOCYTE ESTERASE UA (BEAKER) (test ypay=529) Small Negative UROBILINOGEN UA (BEAKER) (test bizb=642) 0.2 mg/dL 0.2-1.0 RBC UA (BEAKER) (test ekhu=549) 1 /HPF WBC UA (BEAKER) (test fiet=961) 19 /HPF MUCUS (BEAKER) (test lbuo=6949) Rare SQUAMOUS EPITHELIAL (BEAKER) (test eumz=023) 2 /HPF HYALINE CASTS (BEAKER) (test tmjq=541) 22 /LPF SOURCE(BEAKER) (test cbmw=0308) HEPATITIS B SURFACE [id number] 12:57:00* Test Item Value Reference Range Comments HEPATITIS B SURFACE ANTIGEN (2) (BEAKER) (test etcq=9989) Nonreactive Nonreactive HEPATITIS B SURFACE [id number] 12:57:00* Test Item Value Reference Range Comments HEPATITIS B SURFACE ANTIBODY (BEAKER) (test akuc=244) 912.0 mIU/mL <8.0 HEPATITIS B CORE ANTIBODY, [id number] 12:57:00* Test Item Value Reference Range Comments HEPATITIS B CORE IGM ANTIBODY (BEAKER) (test qbsv=968) Nonreactive Nonreactive HEPATITIS C [id number] 12:57:00* Test Item Value Reference Range Comments HEPATITIS C ANTIBODY (BEAKER) (test tdzq=093) Nonreactive Nonreactive HIV-1 ANTIGEN WITH HIV-1/2 [id number] 12:57:00* Test Item Value Reference Range Comments HIV-1 ANTIGEN WITH HIV 1\T\2 ANTIBODY (2) (BEAKER) (test jfuw=4523) Nonreactive Nonreactive COMPREHENSIVE METABOLIC [id number] 12:31:00* Test Item Value Reference Range Comments TOTAL PROTEIN (BEAKER) (test kbhf=567) 7.2 gm/dL 6.0-8.3 ALBUMIN (BEAKER) (test uxfi=6262) 4.0 g/dL 3.5-5.0 ALKALINE PHOSPHATASE (BEAKER) (test xbag=017) 95 U/L 40-150 BILIRUBIN TOTAL (BEAKER) (test bkmz=002) 0.8 mg/dL 0.2-1.2 SODIUM (BEAKER) (test sqat=882) 140 meq/L 136-145 POTASSIUM (BEAKER) (test epyv=711) 4.8 meq/L 3.5-5.1 CHLORIDE (BEAKER) (test doif=894) 99 meq/L 98-107 CO2 (BEAKER) (test hxee=218) 31 meq/L 22-29 BLOOD UREA NITROGEN (BEAKER) (test pnlb=367) 55 mg/dL 7-21 CREATININE (BEAKER) (test qftn=074) 4.67 mg/dL 0.57-1.25 GLUCOSE RANDOM (BEAKER) (test gefe=815) 109 mg/dL 70-105 CALCIUM (BEAKER) (test dmlc=257) 9.3 mg/dL 8.4-10.2 AST (SGOT) (BEAKER) (test izei=404) 23 U/L 5-34 ALT (SGPT) (BEAKER) (test lnof=254) 18 U/L 6-55 EGFR (BEAKER) (test bexd=7564) 14 mL/min/1.73 sq m ESTIMATED GFR IS NOT ACCURATE CREATININE CLEARANCE IN PREDICTING GLOMERULAR FILTRATION RATE. ESTIMATED GFR IS NOT APPLICABLE FOR DIALYSIS PATIENTS. URIC [id number] 12:27:00* Test Item Value Reference Range Comments URIC ACID (BEAKER) (test ytth=148) 4.1 mg/dL 2.6-7.2 [id number] 12:27:00* Test Item Value Reference Range Comments PHOSPHORUS (BEAKER) (test shaf=740) 5.6 mg/dL 2.3-4.7 LIPID [id number] 12:27:00* Test Item Value Reference Range Comments TRIGLYCERIDES (BEAKER) (test vros=305) 130 mg/dL CHOLESTEROL (BEAKER) (test jhpv=500) 137 mg/dL HDL CHOLESTEROL (BEAKER) (test ibsd=160) 44 mg/dL LDL CHOLESTEROL CALCULATED (BEAKER) (test hhay=946) 67 mg/dL Triglyceride Reference Range: Low Risk <150 Borderline 150-199 High Risk 200-499 Very High Risk >=500Cholesterol Reference Range: Low Risk <200 Borderline 200-239 High Risk >240HDL Cholesterol Reference Range: Low Risk >=60 High Risk <40LDL Cholesterol Reference Range: Optimal <100 Near Optimal 100-129 Borderline 130-159 High 160-189 Very High >=190 GAMMA GLUTAMYL TRANSFERASE (GGT)2017-02-02 12:27:00* Test Item Value Reference Range Comments GAMMA GLUTAMYL TRANSFERASE (BEAKER) (test kxfp=956) 29 U/L 9-64 LACTATE DEHYDROGENASE (LDH)2017-02-02 12:27:00* Test Item Value Reference Range Comments LACTATE DEHYDROGENASE (BEAKER) (test qgzv=347) 260 U/L 125-220 PTH, [id number] 12:13:00* Test Item Value Reference Range Comments PARATHYROID HORMONE INTACT (BEAKER) (test hrnj=938) 399.4 pg/mL 8.5-72.5 PROTHROMBIN [id number] 11:57:00* Test Item Value Reference Range Comments PROTIME (BEAKER) (test xons=642) 13.2 seconds 11.7-14.7 INR (BEAKER) (test mdtp=122) 1.0 <=5.9 RECOMMENDED COUMADIN/WARFARIN INR THERAPY RANGESSTANDARD DOSE: 2.0 - 3.0 Includes: PROPHYLAXIS for venous thrombosis, systemic embolization; TREATMENT for venous thrombosis and/or pulmonary embolus.HIGH RISK: Target INR is 2.5-3.5 for patients with mechanical heart valves.CBC W/PLT COUNT & AUTO [id number] 11:47:00* Test Item Value Reference Range Comments WHITE BLOOD CELL COUNT (BEAKER) (test cuhy=219) 6.5 K/ L 3.5-10.5 RED BLOOD CELL COUNT (BEAKER) (test msty=426) 3.33 M/ L 4.63-6.08 HEMOGLOBIN (BEAKER) (test fnsn=905) 10.4 GM/DL 13.7-17.5 HEMATOCRIT (BEAKER) (test grmu=262) 33.4 % 40.1-51.0 MEAN CORPUSCULAR VOLUME (BEAKER) (test kpyl=922) 100.3 fL 79.0-92.2 MEAN CORPUSCULAR HEMOGLOBIN (BEAKER) (test yvdn=470) 31.2 pg 25.7-32.2 MEAN CORPUSCULAR HEMOGLOBIN CONC (BEAKER) (test auaf=053) 31.1 GM/DL 32.3- 36.5 RED CELL DISTRIBUTION WIDTH (BEAKER) (test fnqf=107) 17.0 % 11.6-14.4 PLATELET COUNT (BEAKER) (test rtii=432) 241 K/CU MM 150-450 MEAN PLATELET VOLUME (BEAKER) (test yvuu=847) 10.5 fL 9.4-12.4 NUCLEATED RED BLOOD CELLS (BEAKER) (test dimn=855) 0 /100 WBC 0-0 NEUTROPHILS RELATIVE PERCENT (BEAKER) (test diza=160) 63 % LYMPHOCYTES RELATIVE PERCENT (BEAKER) (test xhki=252) 21 % MONOCYTES RELATIVE PERCENT (BEAKER) (test zbkg=221) 12 % EOSINOPHILS RELATIVE PERCENT (BEAKER) (test ejek=093) 3 % BASOPHILS RELATIVE PERCENT (BEAKER) (test eoiz=165) 1 % NEUTROPHILS ABSOLUTE COUNT (BEAKER) (test yejq=494) 4.10 K/ L 1.78-5.38 LYMPHOCYTES ABSOLUTE COUNT (BEAKER) (test lhdx=743) 1.36 K/ L 1.32-3.57 MONOCYTES ABSOLUTE COUNT (BEAKER) (test etzp=691) 0.81 K/ L 0.30-0.82 EOSINOPHILS ABSOLUTE COUNT (BEAKER) (test zzyy=510) 0.16 K/ L 0.04-0.54 BASOPHILS ABSOLUTE COUNT (BEAKER) (test mwua=872) 0.08 K/ L 0.01-0.08 IMMATURE GRANULOCYTES-RELATIVE PERCENT (BEAKER) (test pxfb=6715) 0 % 0-1
--- OUTSIDE RECORDS SUMMARY | 2017-09-25 09:10 | XMS REPORT | Clinical Summary ---
Author Author MUKESH [facility] Address Unknown Phone Unavailable Care Team Providers Care Watch Mechanic Name Role Phone PCP Unavailable Allergies Active Allergy Reactions Severity Noted Date Comments Iodine And Iodide Anaphylaxis High 02/28/2013 Containing Products Current Medications Prescription Sig. Disp. Refills Start End Date Status Date atorvastatin (LIPITOR) 40 Take 40 mg by mouth Active MG tablet daily. torsemide (DEMADEX) 20 MG Take 20 mg by mouth Active tablet daily. nitroglycerin (NITROSTAT) Place 0.3 mg under the Active 0.3 MG SL tablet tongue every 5 (five) minutes as needed for Chest pain Put 1 pill under tongue every 5min as needed for chest pain.No more than 3 doses in 15min.Call 911 if pain is unrelieved 5min after 1st dose . terazosin (HYTRIN) 2 MG Take 2 mg by mouth Active capsule nightly. bumetanide (BUMEX) 2 MG Take 2 mg by mouth 2 Active tablet (two) times daily. sevelamer (RENVELA) 800 Take 2,400 mg by mouth 3 Active mg tablet (three) times daily with meals . INSULIN Inject 28 Units Active GLARGINE,HUM.REC.ANLOG subcutaneously every (TOUJEO SOLOSTAR SUBQ) evening . insulin lispro (HUMALOG) Inject 4 Units Active 100 unit/mL injection subcutaneously 3 (three) times daily before meals. hydroCHLOROthiazide Take 25 mg by mouth Active (HYDRODIURIL) 25 MG daily. tablet aspirin 81 MG chewable Take 1 tablet (81 mg 30 tablet 2 04/25/2003/05 Active tablet total) by mouth daily. 17 18 metoprolol (LOPRESSOR) Take 0.5 tablets (50 mg 60 tablet 0 04/25/20 Active 100 MG tablet total) by mouth 2 (two) 17 times daily. miscellaneous medical 3 in 1 toilet. 1 each 0 04/25/20 Active supply [facility] 17 nebivolol (BYSTOLIC) 10 Take 10 mg by mouth 02/03/20 Discontin MG tablet daily. 17 ued sertraline (ZOLOFT) 50 MG Take 50 mg by mouth 02/03/20 Discontin tablet daily. 17 ued metFORMIN (GLUMETZA) 1000 Take 1,000 mg by mouth 2 02/03/20 Discontin MG (MOD) 24 hr tablet (two) times daily with 17 ued breakfast and dinner. glimepiride (AMARYL) 4 MG Take 4 mg by mouth every 02/03/20 Discontin tablet morning before breakfast. 17 ued aspirin 81 mg Tab Take 81 mg by mouth 02/03/20 Discontin daily. 17 ued insulin glargine (LANTUS) Inject 30 Units 02/03/20 Discontin 100 unit/mL injection subcutaneously nightly. 17 ued Use as directed amitriptyline (ELAVIL) 10 Take 10 mg by mouth 2 02/03/20 Discontin MG tabletIndications: (two) times daily. 17 ued Neuropathic Pain clopidogrel (PLAVIX) 75 Take 75 mg by mouth 02/03/20 Discontin mg tablet daily. 17 ued metoprolol (LOPRESSOR) Take 100 mg by mouth 2 04/25/20 Discontin 100 MG tablet (two) times daily. 17 ued losartan-hydrochlorothiaz Take 1 tablet by mouth 02/03/20 Discontin mihcael (HYZAAR) 50-12.5 mg daily. 17 ued per tablet cholecalciferol, vitamin Take 1,000 Units by mouth 02/03/20 Discontin D3, 1,000 unit capsule daily. 17 ued sodium bicarbonate 325 MG Take 650 mg by mouth 2 04/13/20 Discontin tablet (two) times daily . 17 ued insulin aspart (NOVOLOG) Inject 28 Units 02/03/20 Discontin 100 unit/mL InPn subcutaneously 3 (three) 17 ued times daily with meals. docusate sodium (COLACE) Take 100 mg by mouth 2 04/13/20 Discontin 100 MG capsule (two) times daily as 17 ued needed for Constipation. ferrous sulfate 325 (65 Take 325 mg by mouth 04/13/20 Discontin FE) MG tablet daily with breakfast. 17 ued lisinopril Take 30 mg by mouth 04/13/20 Discontin (PRINIVIL,ZESTRIL) 30 MG daily. 17 ued tablet NIFEdipine (ADALAT CC) 30 Take 30 mg by mouth 2 04/25/20 Discontin MG 24 hr tablet (two) times daily. 17 ued pantoprazole (PROTONIX) Take 40 mg by mouth 02/03/20 Discontin 40 MG tablet daily. 17 ued oxyCODONE-acetaminophen Take 1 tablet by mouth 30 tablet 0 04/25/20 05/05/20 (PERCOCET) 10-325 mg per every 4 (four) hours as 17 17 tablet needed for up to 10 days. Max Daily Amount: 6 tablets Active Problems Patient Care Coordination Note Endocrinology- Christine Rodriguez [phone] Relief Master- Petr Betancur [phone] Neurologist- Huong Lobo- [phone] Vscular Surgeon- Rafael Lebron [phone] Problem Noted Date CAD (coronary artery disease) 04/22/2017 Acute pulmonary insufficiency following thoracic surgery ([facility]) 04/22/2017 Acute blood loss anemia 04/22/2017 ESRD (end stage renal disease) on dialysis ([facility]) 02/02/2017 Last Assessment & Plan: On HD via LUE AVF Diabetes ([facility]) 02/02/2017 Last Assessment & Plan: On insulin, A1c 6.9% Syncope 03/01/2013 Last Assessment & Plan: No hx of syncope for last few years TIA (transient ischemic attack) 03/01/2013 Last Assessment & Plan: No TIA for last few years. Encounters Date Type Specialty Care Team Description 09/20/2017 Telephone Transplant Vale Molina RN Kidney Transplant Pre-evaluation 04/22/2017 [facility] Cardiology Bay Pina MD Acute pulmonary - Encounter insufficiency following 04/25/2017 thoracic surgery ([facility]) 04/22/2017 Procedure Pass 04/22/2017 Surgery Bay Pina MD BYPASS,CORONARY LIMITED ACCESS 04/21/2017 Anesthesia Baljit Adames MD Event 04/20/2017 [facility] Cardiology Bay Pina MD Encounter 04/20/2017 Hospital Bay Pina MD Encounter 04/20/2017 Hospital Pre-Admission Testing Bay Pina MD Encounter 04/20/2017 Orders Only Cardiology Sharon Pina, BRITTNI 04/13/2017 [facility] Terrence Le MD ESRD (end stage renal Encounter disease) ([facility]);Pre-transplant evaluation for ESRD (end stage renal disease) 04/13/2017 Orders Only General Internal Medicine 04/13/2017 Procedure Pass 04/13/2017 Surgery Terrence Le MD L CATH & CORONARY ANGIOS 02/19/2017 Lab Requisition Lab Florecita Lopez MD 02/16/2017 Abstract Transplant Vale Molina RN 02/02/2017 [facility] Radiology Florecita Lopez MD ESRD (end stage renal Encounter disease) ([facility]);Pre-transplant evaluation for chronic kidney disease 02/02/2017 Evaluation Transplant Florecita Lopez MD Pre- transplant evaluation for chronic kidney disease;Syncope, unspecified syncope type;Transient cerebral ischemia, unspecified type;ESRD (end stage renal disease) ([facility]) 02/02/2017 Orders Only Transplant Hepatology Florecita Lopez MD Pre-transplant evaluation for chronic kidney disease;ESRD (end stage renal disease) on dialysis ([facility]);Anemia of renal disease 02/02/2017 Orders Only Transplant Monica Segovia RN Pre-transplant evaluation for chronic kidney disease (Primary Dx);ESRD (end stage renal disease) on dialysis ([facility]);Anemia of renal disease 01/29/2017 Telephone Transplant Ene Owen Appointment 01/29/2017 Telephone Central Scheduling Ene Owen Appointment 01/29/2017 Orders Only Transplant Vale Molina RN ESRD (end stage renal disease) ([facility]) (Primary Dx);Pre-transplant evaluation for chronic kidney disease 01/06/2017 Orders Only Transplant Vale Molina RN ESRD (end stage renal disease) ([facility]) (Primary Dx);Pre-transplant evaluation for chronic kidney disease 01/06/2017 Abstract Vale Leon RN 12/01/2016 Evaluation Transplant Florecita Lopez MD Pre- transplant evaluation for chronic kidney disease (Primary Dx) 12/01/2016 Evaluation Transplant Florecita Lopez MD 11/24/2016 Telephone Transplant Donna Villalobos Kidney Transplant Pre-evaluation 10/30/2016 Abstract Transplant Donna Villalobos 10/28/2016 Abstract Transplant Donna Villalobos 10/28/2016 Telephone Transplant Radha Villalobosjess Kidney Transplant Pre-evaluation after 09/24/2016 Family History Medical History Relation Name Comments No Known Problem Brother Cleft palate Daughter Diabetes Father Hyperlipidemia Father Hypertension Father Kidney disease Father Heart disease Maternal Grandfather Heart disease Maternal 4 uncles Uncle Hypertension Maternal 4 uncles Uncle Heart disease Mother Relation Name Status Comments Brother Alive Daughter Alive Father Alive Maternal Grandfather Maternal Uncle 4 uncles Alive Mother Social History Tobacco Use Types Packs/Day Years Used Date Never Smoker Smokeless Tobacco: Former Quit: User 07/14/2016 Tobacco Cessation: Ready to Quit: No Alcohol Use Drinks/Week oz/Week Comments Yes 4 Cans of 2.4 occassional beer Sex Assigned at Date Recorded Not on file Last Filed Vital Signs Vital Sign Reading Time Taken Blood Pressure 137/73 04/25/2017 7:25 AM DIAL MAKER Pulse 76 04/25/2017 7:25 AM DIAL MAKER Temperature 36.9 C (98.5 F) 04/25/2017 7:25 AM DIAL MAKER Respiratory Rate 18 04/25/2017 7:25 AM DIAL MAKER Oxygen Saturation 97% 04/25/2017 7:25 AM DIAL MAKER Inhaled Oxygen - - Concentration Weight 142.6 kg (314 lb 6.4 oz) 04/25/2017 4:00 AM DIAL MAKER Height 182.9 cm (6') 04/22/2017 10:00 AM DIAL MAKER Body Mass Index 42.64 04/25/2017 4:00 AM DIAL MAKER Plan of Treatment Date Type Specialty Care Team Description 11/30/2017 Office Visit Transplant Health Maintenance Due Date Last Done Comments INFLUENZA VACCINE 02/14/2018 Implants Implanted Type Area Product Expert Device Expiration Model / Identifier Date Serial / Lot Sut Surg Stl 7 18g 18in Mls Mp [place]/Art N/A: J &J:ETHICON 2021 [id number] / [id number] - Snone hroscopy Sternum NONE / Implanted: Qty: 3 on 04/22/2017 by [id number] Bay Pina MD Procedures Procedure Name Priority Date/Time Associated Diagnosis Comments STERNOTOMY 04/22/2017 CVD (cardiovascular 10:30 AM DIAL MAKER disease) Case Notes MINIMALLY INVASIVE CORONARY BYPASS, LEFT INTERNAL MAMMORY ARTERY TO LEFT ANTERIOR DESCENDING ARTERY Special Needs (REQ TF) BYPASS,CORONARY LIMITED 04/22/2017 CVD (cardiovascular ACCESS 10:30 AM DIAL MAKER disease) Case Notes MINIMALLY INVASIVE CORONARY BYPASS, LEFT INTERNAL MAMMORY ARTERY TO LEFT ANTERIOR DESCENDING ARTERY Special Needs (REQ TF) ABD AO & LOWER EXT 04/13/2017 Z01.818 PRE TRP EVAL FOR ANGIOS/ POSS PPI 3:01 PM DIAL MAKER ESRD Case Notes POP6 POSS PCI L CATH & CORONARY ANGIOS 04/13/2017 Z01.818 PRE TRP EVAL FOR 3:01 PM DIAL MAKER ESRD Case Notes POP6 POSS PCI after 09/24/2016 Results * RHYTHM STRIP - SCAN (05/04/2017 12:50 PM) Only the most recent of 2 results within the time period is included. * POC-Glucose meter (04/25/2017 7:29 AM) Only the most recent of 14 results within the time period is included. Component Value Ref Range POC-Glucose Meter 199 (H)Comment: TESTED AT [facility] [address] [place] [address] 70 - 110 mg /dL [facility] [id number] Specimen Performing Laboratory Blood [facility] [address] [address] * CBC with platelet count + automated diff (04/25/2017 4:13 AM) Only the most recent of 6 results within the time period is included. Component Value Ref Range WBC 9.0 3.5 - 10.5 K/ L RBC 2.99 (L) 4.63 - 6.08 M/ L Hemoglobin 9.3 (L) 13.7 - 17.5 GM/DL Hematocrit 29.2 (L) 40.1 - 51.0 % MCV 97.7 (H) 79.0 - 92.2 fL MCH 31.1 25.7 - 32.2 pg MCHC 31.8 (L) 32.3 - 36.5 GM/DL RDW 14.3 11.6 - 14.4 % Platelets 119 (L) 150 - 450 K/CU MM MPV 11.8 9.4 - 12.4 fL nRBC 0 0 - 0 /100 WBC % Neutros 64 % % Lymphs 22 % % Monos 11 % % Eos 2 % % Baso 0 % # Neutros 5.76 (H) 1.78 - 5.38 K/ L # Lymphs 2.00 1.32 - 3.57 K/ L # Monos 1.00 (H) 0.30 - 0.82 K/ L # Eos 0.17 0.04 - 0.54 K/ L # Baso 0.04 0.01 - 0.08 K/ L Immature 0 0 - 1 % Granulocytes-Relative Specimen Performing Laboratory Blood - Arm, [address] [address] * CBC with platelet count + automated diff (04/25/2017 4:13 AM) Only the most recent of 6 results within the time period is included. Specimen Performing Laboratory Blood Narrative The following orders were created for panel order CBC with platelet count + automated diff. Procedure Abnormality Status --------- - ------ CBC with platelet count ...[[id number]]AbnormalFinal result Please view results for these tests on the individual orders. * Basic metabolic panel (04/25/2017 4:13 AM) Only the most recent of 6 results within the time period is included. Component Value Ref Range Sodium 137 136 - 145 meq/L Potassium 4.2 3.5 - 5.1 meq/L Chloride 99 98 - 107 meq/L CO2 28 22 - 29 meq/L BUN 52 (H) 7 - 21 mg/dL Creatinine 5.41 (H) 0.57 - 1.25 mg/dL Glucose 178 (H) 70 - 105 mg/dL Calcium 8.6 8.4 - 10.2 mg/dL EGFR 11Comment: ESTIMATED GFR IS NOT ACCURATE mL/min/1.73 sq m CREATININE CLEARANCE IN PREDICTING GLOMERULAR FILTRATION RATE. ESTIMATED GFR IS NOT APPLICABLE FOR DIALYSIS PATIENTS. Specimen Performing Laboratory Blood - Arm, [address] [address] * XR chest 1 view portable / bedside (04/24/2017 6:09 AM) Only the most recent of 3 results within the time period is included. Specimen Performing Laboratory GE RIS Narrative FINAL REPORT RAD, CHEST, 1 VIEW, NON DEPT INDICATION: pulmonary congestion COMPARISON: Prior day's exam FINDINGS: Portable frontal view of the chest. IMPRESSION: Support Lines: [place] catheter has been removed. Surgical drains are present, unchanged. Lungs and pleura: Minimal left subsegmental atelectasis and trace effusion. No pneumothorax. Heart and mediastinum: Stable contours. Stable surgical changes. Additional findings: None. Signed: JR Hogan Robert MD Report Verified Date/Time:04/24/2017 06:33:56 Reading Location: [facility] C013Y CT Body Reading Room Procedure Note Interface, External Ris In - 04/24/2017 6:36 AM DIAL MAKER FINAL REPORT RAD, CHEST, 1 VIEW, NON DEPT INDICATION: pulmonary congestion COMPARISON: Prior day's exam FINDINGS: Portable frontal view of the chest. IMPRESSION: Support Lines: [place] catheter has been removed. Surgical drains are present, unchanged. Lungs and pleura: Minimal left subsegmental atelectasis and trace effusion. No pneumothorax. Heart and mediastinum: Stable contours. Stable surgical changes. Additional findings: None. Signed: JR Hogan Robert MD Report Verified Date/Time: 04/24/2017 06:33:56 Reading Location: [facility] C013Y CT Body Reading Room * Hepatitis B surface antigen (04/23/2017 11:56 PM) Only the most recent of 3 results within the time period is included. Component Value Ref Range hepatitis B Surface Ag Nonreactive Nonreactive Specimen [place]forming [place] [address] * Phosphorus (04/23/2017 3:18 AM) Only the most recent of 2 results within the time period is included. Component Value Ref Range Phosphorus 5.2 (H) 2.3 - 4.7 mg/dL Specimen Performing Laboratory Blood [address] [address] * Magnesium (04/23/2017 3:18 AM) Component Value Ref Range Magnesium 2.4 1.6 - 2.6 mg/dL Specimen [place]forming [place] [address] * ANESTHESIA RICARDO (04/22/2017 4:03 PM) Gallo López MD 04/22/20174:03 PM RICARDO Date: 04/22/2017 12:49 PM Sex: Male Location: OR Requesting Physician: BAY PINA Examiner: BAY TRUONG DANIEL Indication: A CBIntubatedSedated Patient screened for esoph disease: Yes Insertion: easy Probe Type: multiplane Modalities: 2D, CFM, CWD and PWD Pre Intervention Summary: Pt here for CABG LV: Nml fxn RV: Nml fxn IAS: No PFO MARGUERITE: No Clot MV:No MR TV: No TR AV: No AI or PV: No PI AORTA:No dissection or dilatation Post Intervention Summary:S/p ACB MV: No MR AV: No AI LV: Nml fxn, thick venrtricle AORTA: No dissectoin Procedure Note Gallo Bacon MD - 04/22/2017 12:49 PM DIAL MAKER Formatting of this note may be different from the original. RICARDO Date: 04/22/2017 12:49 PM Sex: Male Location: OR Requesting Physician: BAY PINA Examiner: BAY TRUONG DANIEL Indication: A CB Intubated Sedated Patient screened for esoph disease: Yes Insertion: easy Probe Type: multiplane Modalities: 2D, CFM, CWD and PWD Pre Intervention Summary: Pt here for CABG LV: Nml fxn RV: Nml fxn IAS: No PFO MARGUERITE: No Clot MV:No MR TV: No TR AV: No AI or PV: No PI AORTA: No dissection or dilatation Post Intervention Summary: S/p ACB MV: No MR AV: No AI LV: Nml fxn, thick venrtricle AORTA: No dissectoin * [facility] CRITICAL LABS (ABG,NA,K,H&H,GLUCOSE) (04/22/2017 3:54 PM) Only the most recent of 3 results within the time period is included. Specimen Performing Laboratory Blood, Arterial Narrative The following orders were created for panel order [facility] CRITICAL LABS (ABG,NA,K,H& H,GLUCOSE). Procedure Abnormality Status --------- - ------ Blood gas, arterial[[id number]]Abnormal Final result Sodium Na-Stat Lab[[id number]] Normal Final result Potassium-Stat Lab[[id number]] Normal Final result Glucose-Stat Lab[[id number]] Abnormal Final result HGB/HCT (H&H)-Stat Lab[[id number]] Abnormal Final result Please view results for these tests on the individual orders. * Potassium-Stat Lab (04/22/2017 3:54 PM) Only the most recent of 3 results within the time period is included. Component Value Ref Range Potassium 3.8 3.6 - 5.5 meq/L Specimen Performing Laboratory Blood, [address] [address] * Sodium Na-Stat Lab (04/22/2017 3:54 PM) Only the most recent of 3 results within the time period is included. Component Value Ref Range Sodium 135 135 - 148 meq/L Specimen Performing Laboratory Blood, [address] [address] * Glucose-Stat Lab (04/22/2017 3:54 PM) Only the most recent of 3 results within the time period is included. Component Value Ref Range Glucose 198 (H) 70 - 110 mg/dL Specimen Performing Laboratory Blood, [address] [address] * Oxygen saturation, measured (04/22/2017 3:54 PM) Component Value Ref Range O2 Saturation (Measured) 84.7 % Specimen Performing Laboratory Blood [address] [address] * HGB/HCT (H&H)-Stat Lab (04/22/2017 3:54 PM) Only the most recent of 3 results within the time period is included. Component Value Ref Range Hemoglobin 10.7 (L) 13.0 - 16.8 g/dL Hematocrit 31.0 (L) 40.0 - 50.0 % Specimen Performing Laboratory Blood, [address] [address] * Calcium, Ionized (04/22/2017 3:54 PM) Only the most recent of 2 results within the time period is included. Component Value Ref Range Calcium, Ion 1.10 (L) 1.12 - 1.27 mmol/L pH, Blood 7.47 Specimen Performing Laboratory Blood [address] [address] * Lactic acid, arterial, whole blood (04/22/2017 3:54 PM) Component Value Ref Range Lactate, Art 1.7 0.5 - 2.2 mmol/L Specimen Performing Laboratory Blood, Arterial [address] [address] Narrative Effective 09/18/2015: Units/Reference Range Change New: 0.5-2.2 mmol/LPrevious: 5-20 mg/dL * CBC (Hemogram only) (04/22/2017 3:54 PM) Component Value Ref Range WBC 12.2 (H) 3.5 - 10.5 K/ L RBC 3.22 (L) 4.63 - 6.08 M/ L Hemoglobin 10.1 (L) 13.7 - 17.5 GM/DL Hematocrit 30.2 (L) 40.1 - 51.0 % MCV 93.8 (H) 79.0 - 92.2 fL MCH 31.4 25.7 - 32.2 pg MCHC 33.4 32.3 - 36.5 GM/DL RDW 14.0 11.6 - 14.4 % Platelets 134 (L) 150 - 450 K/CU MM MPV 10.6 9.4 - 12.4 fL nRBC 0 0 - 0 /100 WBC Specimen Performing Laboratory Blood [address] [address] * Potassium-STAT (04/22/2017 3:54 PM) Component Value Ref Range Potassium 4.1 3.5 - 5.1 meq/L Specimen Performing Laboratory Blood [address] [address] * Glucose-STAT (04/22/2017 3:54 PM) Component Value Ref Range Glucose 209 (H) 70 - 105 mg/dL Specimen Performing Laboratory Blood [address] [address] * Blood gas, arterial (04/22/2017 3:54 PM) Only the most recent of 3 results within the time period is included. Component Value Ref Range pH, Arterial 7.51 (H) 7.35 - 7.45 pCO2, Arterial 36 35 - 45 mmHg pO2, Arterial 265 (H) 80 - 90 mmHg O2 Sat, Arterial 99.7 (H) 96.0 - 97.0 % HCO3, Arterial 29 21 - 29 mmol/L Base Excess, Arterial 4.8 (H) -2.0 - 3.0 mmol/L Patient Temperature 34.5 C FIO2 60.0 % Specimen Performing Laboratory Blood, Arterial [address] [address] * POC ACTIVATED CLOTTING TIME (04/22/2017 2:47 PM) Only the most recent of 8 results within the time period is included. Component Value Ref Range Activated Clotting Time 120Comment: TESTED AT [address] [address] Specimen Performing Laboratory Blood [address] [address] * TRANSFUSION SERVICE REPORT - SCAN (04/21/2017 6:08 PM) Only the most recent of 2 results within the time period is included. * VASCULAR DIAGRAM -SCAN (04/21/2017 2:22 PM) Only the most recent of 4 results within the time period is included. * XR chest 2 views (04/20/2017 3:21 PM) Specimen Performing Laboratory GE RIS Narrative FINAL REPORT Chest, 2 views. Clinical History: pre op Comparison Study: June 23, 2016 Findings:The heart and lungs are within normal limits.The pleural spaces are clear.No significant bony or soft tissue abnormalities are seen. Impression: No active cardiopulmonary disease. Signed: Richard Arias MD Report Verified Date/Time:04/20/2017 15:51:22 Reading Location: [address] Radiology Reading Room Procedure Note Interface, External Ris In - 04/20/2017 3:53 PM DIAL MAKER FINAL REPORT Chest, 2 views. Clinical History: pre op Comparison Study: June 23, 2016 Findings: The heart and lungs are within normal limits. The pleural spaces are clear. No significant bony or soft tissue abnormalities are seen. Impression: No active cardiopulmonary disease. Signed: Richard Arias MD Report Verified Date/Time: 04/20/2017 15:51:22 Reading Location: [address] Radiology Reading Room * Type and screen, automated (04/20/2017 3:02 PM) Only the most recent of 2 results within the time period is included. Component Value Ref Range ABO/RH AUTOMATED (BEAKER) A POSITIVE Ab Scrn NEGATIVE Specimen Performing Laboratory Blood [address] [address] * aPTT (04/20/2017 3:02 PM) Component Value Ref Range PTT 27.3 22.5 - 36.0 seconds Specimen Performing Laboratory Blood [address] [address] * Prothrombin time/INR (04/20/2017 3:02 PM) Only the most recent of 2 results within the time period is included. Component Value Ref Range Protime 11.9 11.7 - 14.7 seconds INR 0.9 <=5.9 Specimen Performing Laboratory Blood [address] [address] Narrative RECOMMENDED COUMADIN/WARFARIN INR THERAPY RANGES STANDARD DOSE: 2.0 - 3.0 Includes: PROPHYLAXIS for venous thrombosis, systemic embolization; TREATMENT for venous thrombosis and/or pulmonary embolus. HIGH RISK: Target INR is 2.5-3.5 for patients with mechanical heart valves. * Urinalysis w/ Microscopic (04/20/2017 3:01 PM) Only the most recent of 2 results within the time period is included. Component Value Ref Range Color, UA Light Yellow Clarity, UA Clear Specific [place], UA 1.006 1.001 - 1.035 pH, UA 7.0 5.0 - 8.0 Protein, UA 50 mg/dL (A) Negative Glucose, UA 70 mg/dL (A) Negative Ketones, UA Negative Negative Bilirubin, UA Negative Negative Blood, UA Negative Negative Nitrite, UA Negative Negative Leukocytes, UA Negative Negative Urobilinogen, UA 0.2 0.2 - 1.0 mg/dL RBC, UA 0 /HPF WBC, UA 2 /HPF Squam Epithel, UA 3 /HPF Specimen Source Specimen Performing Laboratory Urine [address] [address] * Electrocardiogram, 12-lead (04/20/2017 3:00 PM) Only the most recent of 2 results within the time period is included. Specimen Performing Laboratory GE MUSE Narrative Ventricular Rate 70 BPM Atrial Rate 70 BPM P-R Interval 214 ms QRS Duration 114 ms Q-T Interval 432 ms QTC Calculation(Bazett) 466 ms P Adair 72 degrees R Adair 7 degrees T Adair 83 degrees Sinus rhythm with 1st degree A-V block Interatrial conduction delay RsR' in V1-V2 Prolonged QT When compared with ECG of 13-APR-2017 12:35, No significant change was found Confirmed by MD BLACK YOCHAI ([id number]) on 04/21/2017 6:14:10 AM Procedure Note Interface, External Ris In - 04/21/2017 6:14 AM DIAL MAKER Ventricular Rate 70 BPM Atrial Rate 70 BPM P-R Interval 214 ms QRS Duration 114 ms Q-T Interval 432 ms QTC Calculation(Bazett) 466 ms P Adair 72 degrees R Adair 7 degrees T Adair 83 degrees Sinus rhythm with 1st degree A-V block Interatrial conduction delay RsR' in V1-V2 Prolonged QT When compared with ECG of 13-APR-2017 12:35, No significant change was found Confirmed by MD BLACK YOCHAI ([id number]) on 04/21/2017 6:14:10 AM * CARDIAC CATH REPORT - SCAN (04/15/2017 8:10 PM) * PT/aPTT (04/13/2017 12:01 PM) Component Value Ref Range Protime 12.7 11.7 - 14.7 seconds INR 1.0 <=5.9 PTT 25.8 22.5 - 36.0 seconds Specimen Performing Laboratory Blood - Arm, [place] [address] Narrative RECOMMENDED COUMADIN/WARFARIN INR THERAPY RANGES STANDARD DOSE: 2.0 - 3.0 Includes: PROPHYLAXIS for venous thrombosis, systemic embolization; TREATMENT for venous thrombosis and/or pulmonary embolus. HIGH RISK: Target INR is 2.5-3.5 for patients with mechanical heart valves. * Ultrasound abdomen complete (02/02/2017 1:40 PM) Specimen Performing Laboratory Osmopure Narrative FINAL REPORT Ultrasound of the abdomen. Clinical History: [...] of the left kidney, most likely nonocclusive calculus. 2. Gallbladder sludge. Signed: Richard Arias MD Report Verified Date/Time:02/02/2017 14:33:42 Reading Location: [address] Ultrasound Reading Room Procedure Note Interface, External Ris In - 02/02/2017 2:35 PM CDT FINAL REPORT Ultrasound of the abdomen. Clinical History: [...] of the left kidney, most likely nonocclusive calculus. 2. Gallbladder sludge. Signed: Richard Arias MD Report Verified Date/Time: 02/02/2017 14:33:42 Reading Location: [address] Ultrasound Reading Room * Flow PRA Class I and II (02/02/2017 12:00 PM) Component Value Ref Range Date of Serum [id number] Serum# [id number] Flow PRA Class I and II See Scanned Report Specimen Performing Laboratory Blood [facility] IMMUNE EVALUATION LAB [facility] [address] [place], MS:BCM [address] [place] [address] * AB Specificity Class I (02/02/2017 12:00 PM) Component Value Ref Range Date of Serum [id number] Serum# [id number] AB Specificity Class I See Scanned Report Specimen Performing Laboratory Blood [facility] IMMUNE EVALUATION LAB [facility] [address] [place], MS:BCM [address] [place] [address] * HLA Typing (02/02/2017 12:00 PM) Component Value Ref Range HLA Result See Scanned Report HLA-A AG1 HLA-A AG2 HLA-B AG1 HLA-B AG2 HLA-C AG1 HLA-C AG2 HLA-DR AG1 HLA-DR 2nd Antigen HLA-DQ AG1 HLA-DQ AG2 HLA-DRW Specimen Performing Laboratory Blood [facility] IMMUNE EVALUATION LAB [facility] [address] [place], MS:BCM [address] [place] [address] * T Spot TB (02/02/2017 9:19 AM) Component Value Ref Range T-Spot TB Borderline Neg Ctrl Spot Count 0 Panel A Spot 3 Panel B Spot [address] >20 Scan Result Specimen Performing Laboratory Blood [facility] [address] [facility], [address] [place] [address] * Urine Culture (02/02/2017 9:19 AM) Component Value Ref Range Result 50-59,000 col/mL skin marina Specimen Performing Laboratory Urine - Urine, [facility] Unspecified Source [address] [place] [address] * PTH, Intact (02/02/2017 9:19 AM) Component Value Ref Range PTH 399.4 (H) 8.5 - 72.5 pg/mL Specimen Performing Laboratory Blood [address] [address] * HIV-1 Antigen with HIV-1/2 Antibody (02/02/2017 9:18 AM) Component Value Ref Range HIV-1 Antigen with HIV Nonreactive Nonreactive 1&2 Antibody Specimen Performing Laboratory Blood [address] [address] * Hepatitis C Antibody (02/02/2017 9:18 AM) Component Value Ref Range Hepatitis C Ab Nonreactive Nonreactive Specimen Performing Laboratory Blood [address] [address] * Hepatitis B core antibody, IgM (02/02/2017 9:18 AM) Component Value Ref Range Hep B C IgM Nonreactive Nonreactive Specimen Performing Laboratory [address] [address] * Hepatitis B surface antibody (02/02/2017 9:18 AM) Component Value Ref Range Hep B S Ab 912.0 (H) <8.0 mIU/mL Specimen Performing Laboratory [address] [address] * Varicella Zoster Antibody, IgG (02/02/2017 9:18 AM) Component Value Ref Range Varicella IgG 8.0 Al Specimen Performing Laboratory [address] [address] Narrative VARICELLA ZOSTER RESULT INTERPRETATIONS: <=0.8 AlNonreactive:Presumed non-immune to VZV 0.9-1.0 AlEquivocal >=1.1 AlReactive:Presumed immune to VZV * Uric Acid (02/02/2017 9:18 AM) Component Value Ref Range Uric Acid 4.1 2.6 - 7.2 mg/dL Specimen Performing Laboratory Blood [address] [address] * Lactate Dehydrogenase (LDH) (02/02/2017 9:18 AM) Component Value Ref Range LDH 260 (H) 125 - 220 U/L Specimen Performing Laboratory [address] [address] * Hemoglobin A1c (02/02/2017 9:18 AM) Component Value Ref Range Hemoglobin A1C 7.1 (H) 4.3 - 6.1 % Specimen Performing Laboratory Blood [address] [address] * Gamma Glutamyl Transferase (GGT) (02/02/2017 9:18 AM) Component Value Ref Range GGT 29 9 - 64 U/L Specimen Performing Laboratory [address] [address] * Lipid panel (02/02/2017 9:18 AM) Component Value Ref Range Triglycerides 130 mg/dL Cholesterol 137 mg/dL HDL 44 mg/dL LDL Calculated 67 mg/dL Specimen Performing Laboratory Blood [facility] [address] Narrative Triglyceride Reference Range: Low Risk <150 [id number] High Risk 200-499 Very High Risk>=500 Cholesterol Reference Range: Low Risk <200 Xtobtftqul325-144 High Risk>240 HDL Cholesterol Reference Range: Low Risk >=60 High Risk <40 LDL Cholesterol Reference Range: Optimal<100 Near Mgsenlp782-906 Anfotprcru614-582 Lxkx384-647 Very High >=190 * Comprehensive metabolic panel (02/02/2017 9:18 AM) Component Value Ref Range Protein, Total 7.2 6.0 - 8.3 gm/dL Albumin 4.0 3.5 - 5.0 g/dL Alkaline Phosphatase 95 40 - 150 U/L Total Bilirubin 0.8 0.2 - 1.2 mg/dL Sodium 140 136 - 145 meq/L Potassium 4.8 3.5 - 5.1 meq/L Chloride 99 98 - 107 meq/L CO2 31 (H) 22 - 29 meq/L BUN 55 (H) 7 - 21 mg/dL Creatinine 4.67 (H) 0.57 - 1.25 mg/dL Glucose 109 (H) 70 - 105 mg/dL Calcium 9.3 8.4 - 10.2 mg/dL AST 23 5 - 34 U/L ALT 18 6 - 55 U/L EGFR 14Comment: ESTIMATED GFR IS NOT ACCURATE mL/min/1.73 sq m CREATININE CLEARANCE IN PREDICTING GLOMERULAR FILTRATION RATE. ESTIMATED GFR IS NOT APPLICABLE FOR DIALYSIS PATIENTS. Specimen Performing Laboratory Blood [address] [address] * Cytomegalovirus antibody, IgM (02/02/2017 9:17 AM) Component Value Ref Range CMV IgM Negative Specimen Performing Laboratory Blood [address] [address] * EBV-VCA antibody, IgM (02/02/2017 9:17 AM) Component Value Ref Range EBV VCA IgM Negative Specimen Performing Laboratory Blood [address] [address] * EBV-VCA antibody, IgG (02/02/2017 9:17 AM) Component Value Ref Range EBV VCA IgG Positive Specimen Performing Laboratory Blood [address] [address] * RPR (02/02/2017 9:17 AM) Component Value Ref Range RPR Nonreactive Nonreactive Specimen Performing Laboratory Blood [address] [address] * Cytomegalovirus antibody, IgG (02/02/2017 9:17 AM) Component Value Ref Range CMV IgG Positive Specimen Performing Laboratory Blood [address] [address] * Direct AHG (CATALINA)/Direct Jose (02/02/2017 9:17 AM) Component Value Ref Range Direct AHG-IGG NEGATIVE Direct AHG-C3B, C3D NEGATVIE Specimen Performing Laboratory Blood [address] [address] after 09/24/2016
--- NOTE | 2017-09-25 10:44 | Diagnostic Imaging Report ---
EXAM: CT Abdomen and Pelvis WITH contrast INDICATION: Left flank pain, hematuria COMPARISON: CT of the abdomen and pelvis from 07/14/2016 TECHNIQUE: Abdomen and pelvis were scanned utilizing a multidetector helical scanner from the lung base to the pubic symphysis after administration of IV contrast. Coronal and sagittal reformations were obtained. Routine protocol is performed. IV CONTRAST: None. ORAL CONTRAST: Water RADIATION DOSE: Total DLP: 1272.58 mGy*cm Estimated effective dose: (DLP x 0.015 x size factor) mSv COMPLICATIONS: None FINDINGS: LINES and TUBES: None. LOWER THORAX: Unremarkable HEPATOBILIARY: No focal hepatic lesions. No biliary ductal dilation. GALLBLADDER: Absent SPLEEN: No splenomegaly. PANCREAS: No focal masses or ductal dilatation. ADRENALS: No adrenal nodules KIDNEYS/URETERS: No hydronephrosis. No cystic or solid mass lesions. No stones. GI TRACT: No abnormal distention, wall thickening, or evidence of bowel obstruction. The distal colon is full of residual oral contrast, presumably from an outside hospital examination. Appendix is not visualized PELVIC ORGANS/BLADDER: Unremarkable. LYMPH NODES: No lymphadenopathy. VESSELS: Unremarkable. PERITONEUM / RETROPERITONEUM: No free air or fluid. BONES: Bilateral spondylolysis at L5. No spondylolisthesis. Multilevel degenerative changes of the thoracic and lumbar spine. SOFT TISSUES: Midline laparotomy scar. IMPRESSION: 1. Status post cholecystectomy. 2. No renal or ureteral stones on either side. No specific findings to explain the patient's symptoms. Alonso Nathan MD Signed by: Dr. Alonso Nathan M.D. on 09/25/2017 10:40 AM
[2017-09-25 10:49] LABS: BASOPHILS # (AUTO) 0.1 (0.0-0.1); BASOPHILS % 0.8 % (0.0-1.0); EOSINOPHILS # (AUTO) 0.2 (0.0-0.4); EOSINOPHILS % 2.5 % (0.0-6.0); HEMATOCRIT 31.4 % (38.2-49.6); HEMOGLOBIN 10.5 g/dL (14.0-18.0); LYMPHOCYTES # (AUTO) 1.4 (1.0-3.2); LYMPHOCYTES % 16.8 % (18.0-39.1); MEAN CORPUSCULAR HEMOGLOBIN 32.1 pg (28-32); MEAN CORPUSCULAR HGB CONC 33.4 g/dL (31-35); MONOCYTES # (AUTO) 0.8 (0.2-0.8); MONOCYTES % 9.1 % (4.4-11.3); NEUTROPHILS # (AUTO) 5.9 (2.1-6.9); NEUTROPHILS % 70.4 % (38.7-80.0); PLATELET COUNT 173 x10e3/uL (140-360); RED BLOOD COUNT 3.27 x10e6/uL (4.3-5.7); RED CELL DISTRIBUTION WIDTH 14.9 % (11.7-14.4)
[2017-09-25 11:04] LABS: ALBUMIN 3.4 g/dL (3.5-5.0); ALBUMIN/GLOBULIN RATIO 0.9 (0.8-2.0); ANION GAP 14.7 mmol/L (8-16); CALCIUM 9.7 mg/dL (8.4-10.2); CREATININE, SERUM 3.63 mg/dL (0.72-1.25); POTASSIUM 4.7 mmol/L (3.5-5.1)
[2017-09-25 12:04] LABS: CLARITY,URINE HAZY (CLEAR); COLOR,URINE AMBER (YELLOW); LEUKOCYTE ESTERASE ,URINE 1+ (NEGATIVE); NITRITE,URINE NEGATIVE (NEGATIVE)
[2017-09-25 12:05] LABS: BILIRUBIN,URINE NEGATIVE (NEGATIVE); KETONES,URINE NEGATIVE (NEGATIVE); PROTEIN,URINE DIPSTICK 2+ (NEGATIVE); URINE UROBILINOGEN 0.2 mg/dL (0.2 - 1)
[2017-09-25 12:10] LABS: BACTERIA,URINE FEW /HPF; EPITHELIAL CELLS,URINE FEW /LPF; RBC,URINE >50 /HPF (0-5); WBC,URINE (MAN) >50 /HPF (0-5)
[2017-09-25] MEDS ORDERED: CEFTRIAXONE SOD 1 GM VIAL IV ONE (12:15)
[2017-09-25] MEDS ORDERED: CEFTRIAXONE SOD 1 GM VIAL IM ONE (12:30)
[2017-09-25] MEDS ORDERED: LIDOCAINE HCL 1% LOCAL INJ 20 ML VIAL INJ ONE (13:00)
[2017-09-25 13:05] VITALS: BP 185/105
== END 2017-09-25 13:15 | disposition home or self-care (01) ==
LOC: ER 09:06
DX: N30.91 Cystitis, unspecified with hematuria (principal); R10.30 Lower abdominal pain, unspecified; I12.0 Hypertensive chronic kidney disease with stage 5 chronic kidney disease or end stage renal disease; E11.22 Type 2 diabetes mellitus with diabetic chronic kidney disease; N18.6 End stage renal disease; Z99.2 Dependence on renal dialysis
CPT/HCPCS: 36415; 74176; 80053; 81001; 85025; 87086; 99284; J0696; J2001

== ENCOUNTER 2018-02-12 20:39 | Observation (INO) | payer BC, MEDICARE ==
[~2018-02-12] VITALS: Ht 182.9 cm; Wt 155.2 kg
[2018-02-12 23:34] LABS: BASOPHILS # (AUTO) 0.1 (0.0-0.1); BASOPHILS % 0.7 % (0.0-1.0); EOSINOPHILS # (AUTO) 0.1 (0.0-0.4); EOSINOPHILS % 1.3 % (0.0-6.0); HEMATOCRIT 37.3 % (38.2-49.6); HEMOGLOBIN 12.7 g/dL (14.0-18.0); LYMPHOCYTES % 23.3 % (18.0-39.1); MEAN CORPUSCULAR HEMOGLOBIN 32.7 pg (28-32); MEAN CORPUSCULAR VOLUME 96.1 fL (81-99); MONOCYTES % 11.4 % (4.4-11.3); NEUTROPHILS # (AUTO) 5.3 (2.1-6.9); NEUTROPHILS % 62.9 % (38.7-80.0); PLATELET COUNT 191 x10e3/uL (140-360); RED BLOOD COUNT 3.88 x10e6/uL (4.3-5.7); RED CELL DISTRIBUTION WIDTH 14.1 % (11.7-14.4)
[2018-02-12 23:39] LABS: INR 0.84; PROTHROMBIN TIME 12.3 seconds (11.9-14.5)
--- NOTE | 2018-02-12 23:39 | Diagnostic Imaging Report ---
EXAM: CHEST SINGLE (PORTABLE), AP 1 view INDICATION: History of pneumonia COMPARISON: None FINDINGS: LINES/TUBES: None LUNGS: No consolidations or edema. PLEURA: No effusions or pneumothorax. HEART AND MEDIASTINUM: Normal size and contour. BONES AND SOFT TISSUES: No acute findings. Median sternotomy wires. IMPRESSION: No acute thoracic abnormality. Signed by: Dr. Martha Hackett M.D. on 02/12/2018 11:36 PM
[2018-02-12 23:48] LABS: ALBUMIN 3.6 g/dL (3.5-5.0); ALBUMIN/GLOBULIN RATIO 0.9 (0.8-2.0); ANION GAP 22.8 mmol/L (8-16); CALCIUM 8.6 mg/dL (8.4-10.2); CREATININE, SERUM 4.78 mg/dL (0.72-1.25); MAGNESIUM 2.3 MG/DL (1.3-2.1); POTASSIUM 4.8 mmol/L (3.5-5.1)
[2018-02-12 23:54] LABS: CREATINE KINASE MB 3.7 ng/mL (0-5.0)
[2018-02-13] VITALS (7 sets, daily range): BP systolic 134–164; BP diastolic 62–97
[2018-02-13] MEDS ORDERED: INSULIN REGULAR, HUMAN 100 UNIT/1 ML 3ML VIAL SQ STA (00:43)
[2018-02-13] MEDS ORDERED: ONDANSETRON HCL INJ 2 MG/ML VIAL IV PRN (01:15)
[2018-02-13] MEDS ORDERED: DEXTROSE 50% SYRINGE 50 ML IV PRN (01:15)
[2018-02-13 01:34] LABS: ABG HCO3 28 mmol/L (23-28); ABG PCO2 42 mmHg (41-51); ABG PH 7.43 (7.31-7.41); ABG PO2 105 mmHg (80-105)
[2018-02-13] MEDS: AZITHROMYCIN 500MG/NS 250 ML 250 ML IV SCH ×2 (01:54→21:17)
[2018-02-13 05:18] LABS: CREATINE KINASE MB 2.5 ng/mL (0-5.0)
[2018-02-13] MEDS: INSULIN REGULAR, HUMAN 100 UNIT/1 ML 3ML VIAL SQ SCH ×4 (07:30→21:17)
[2018-02-13] MEDS: FAMOTIDINE 20 MG/2 ML VIAL IV SCH ×2 (09:27→21:17)
[2018-02-13] MEDS: SEVELAMER CARBONATE 800 MG TAB PO SCH ×2 (12:11→16:00)
--- NOTE | 2018-02-13 12:27 | History and Physical ---
PRIMARY CARE PHYSICIAN: Lloyd Holder MD CHIEF COMPLAINT: Cough and chills. HISTORY OF PRESENT ILLNESS: This is a 47-year-old man with a history of end-stage renal disease on hemodialysis and diabetes mellitus, now developing cough with chills, prompting a visit to the hospital. He was found to have acute bronchitis. Chest x-ray was negative. He was admitted for further evaluation and management. His cough has been productive. No fever, no chest pain. Glucose found to be mildly elevated. He has had issues obtained in his due to insurance issues. 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 PAST MEDICAL HISTORY: Diabetes mellitus type 2, hypertension, morbid obesity, end-stage renal disease on hemodialysis, myocardial infarction times 3 without any stent placement, TIA and stroke times 2, hyperlipidemia. PAST SURGICAL HISTORY: He is status post permanent pacemaker placement. ALLERGIES: PER ELECTRONIC MEDICAL RECORD. FAMILY/SOCIAL HISTORY: Patient's father had diabetes. Patient is , has 2 children. Occasional alcohol. No cigarettes or illicits. 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 MEDICATIONS: Per electronic medical record. REVIEW OF SYSTEMS: Denies any dizziness, chest pain. Denies any fever, nausea, vomiting, diarrhea, headache, vision changes, back pain. PHYSICAL EXAMINATION: VITAL SIGNS: Reviewed. GENERAL APPEARANCE: A tired-appearing man resting in bed. HEENT: Anicteric. CARDIOVASCULAR: Normal S1, S2. LUNGS: Slightly reduced, mildly coarse. ABDOMEN: Soft, nontender, nondistended. EXTREMITIES: Trace edema. Right arm, he has hemodialysis access. PSYCHIATRIC: Normal mood. NEUROLOGICAL: Alert and oriented x3. LABS: Reviewed. MEDICATIONS: Reviewed. ASSESSMENT: This is a 47-year-old man with 1. Acute bronchitis. 2. Uncontrolled diabetes mellitus. 3. End-stage renal disease on hemodialysis. 4. Morbid obesity. 5. Coronary artery disease. 6. Hypertension. PLAN 1. We will continue with azithromycin. 2. We will use the antitussive medication. 3. Nephrology for dialysis tomorrow. 4. Continue home medication. 5. SCDs for DVT prophylaxis. 6. Control blood glucose. 7. We will resume home medication including antihypertensive medication. DISPOSITION: Nephrology consultation. Job#: [id number] MARTIN
[2018-02-13 14:38] LABS: CREATINE KINASE MB 1.9 ng/mL (0-5.0)
[2018-02-13] MEDS: METOPROLOL TARTRATE 50 MG TAB PO SCH (16:00)
[2018-02-13] MEDS: ISOSORBIDE DINITRATE 20 MG TAB PO SCH ×2 (16:00→21:18)
[2018-02-13] MEDS ORDERED: SODIUM CHLORIDE 0.9% 250ML 250 ML ONE (20:34)
[2018-02-13] MEDS: NIFEDIPINE CR 30 MG TAB PO SCH (21:18)
--- NOTE | 2018-02-13 21:56 | Consultation ---
DATE OF CONSULTATION: REQUESTING PHYSICIAN: Dr. Masterson REASON FOR CONSULTATION: ESRD. Thank you for allowing us to participate in Ms. Romero's care. HISTORY OF PRESENT ILLNESS: This is a 47-year-old male, history of end-stage renal disease, overweight, type-2 diabetes, covered with phosphorus control, came in with apparently a bronchitis, uncontrolled sugars due to issues getting his insulin coverage, currently that is improved. However, sugars here were 400. Chest x-ray was clear. Breathing is improved with symptomatic treatment and antibiotics. PAST HISTORY: ESRD, hypertension, obesity, type-2 diabetes, history of fluid overload, anemia of CKD on intermittent CAROLEE, secondary hyperparathyroidism. HOME MEDICATIONS: Please see list. FAMILY HISTORY: Diabetes. SOCIAL HISTORY: Does not reveal alcohol or smoke at this time. REVIEW OF SYSTEMS CONSTITUTIONAL: No definite fever or chills here. RESPIRATORY: Dyspnea has improved. Had some cough. CARDIAC: No angina, syncope. NEURO: Denies headaches, seizures. ENDOCRINE: History of poor sugar control, which is gradually improving according to him at least on the outpatient side. EXAMINATION GENERAL: Laying in bed, no distress. VITAL SIGNS: Temperature 97.4, pulse 78, blood pressure 145/71. HEENT: Atraumatic. NECK: Unable to see JVD. CHEST: Now clear. EXTREMITIES: Trace edema. VASCULAR: Patent right upper extremity AV fistula. NEURO: Alert, appropriate. Speech is normal. ASSESSMENT 1. End-stage renal disease. 2. Hypertension. 3. Chronic metabolic acidosis from the renal dysfunction that is now reasonably corrected, on p.o. bicarbonate and dialysis. 4. Secondary hyperparathyroidism, not on binders. PLAN 1. Restart Renvela. 2. Hemodialysis per usual schedule. 3. Keep the low-potassium, low-phosphorus intake. 4. Will increase protein. 5. Will follow along. Job#: [id number] CQ
[2018-02-14] VITALS (7 sets, daily range): BP systolic 118–146; BP diastolic 63–72
[2018-02-14 05:25] LABS: BASOPHILS # (AUTO) 0.1 (0.0-0.1); BASOPHILS % 0.8 % (0.0-1.0); EOSINOPHILS # (AUTO) 0.3 (0.0-0.4); EOSINOPHILS % 3.8 % (0.0-6.0); HEMATOCRIT 32.7 % (38.2-49.6); HEMOGLOBIN 11.1 g/dL (14.0-18.0); LYMPHOCYTES # (AUTO) 2.4 (1.0-3.2); LYMPHOCYTES % 33.5 % (18.0-39.1); MEAN CORPUSCULAR HEMOGLOBIN 32.4 pg (28-32); MEAN CORPUSCULAR HGB CONC 33.9 g/dL (31-35); MEAN CORPUSCULAR VOLUME 95.3 fL (81-99); MONOCYTES # (AUTO) 1.1 (0.2-0.8); MONOCYTES % 15.4 % (4.4-11.3); NEUTROPHILS # (AUTO) 3.2 (2.1-6.9); PLATELET COUNT 172 x10e3/uL (140-360); RED BLOOD COUNT 3.43 x10e6/uL (4.3-5.7); RED CELL DISTRIBUTION WIDTH 14.2 % (11.7-14.4)
[2018-02-14 05:54] LABS: ANION GAP 17.7 mmol/L (8-16); CALCIUM 8.2 mg/dL (8.4-10.2); CHOL/HDL RATIO 4.6 (3.9-4.7); CREATININE, SERUM 5.22 mg/dL (0.72-1.25); POTASSIUM 3.7 mmol/L (3.5-5.1)
[2018-02-14] MEDS: SEVELAMER CARBONATE 800 MG TAB PO SCH ×3 (08:16→16:42)
[2018-02-14] MEDS: FAMOTIDINE 20 MG/2 ML VIAL IV SCH ×2 (08:16→23:23)
[2018-02-14] MEDS: METOPROLOL TARTRATE 50 MG TAB PO SCH ×2 (08:17→16:27)
[2018-02-14] MEDS: INSULIN REGULAR, HUMAN 100 UNIT/1 ML 3ML VIAL SQ SCH (08:17)
[2018-02-14] MEDS: ISOSORBIDE DINITRATE 20 MG TAB PO SCH ×3 (08:17→21:00)
[2018-02-14] MEDS: NIFEDIPINE CR 30 MG TAB PO SCH ×2 (08:18→21:00)
[2018-02-14] MEDS ORDERED: LOSARTAN POTASSIUM 25 MG TAB PO SCH (09:00)
[2018-02-14] MEDS ORDERED: NIFEDIPINE CR 30 MG TAB PO SCH (09:00)
[2018-02-14] MEDS ORDERED: SODIUM BICARBONATE 650 MG TAB PO SCH (09:00)
[2018-02-14] MEDS ORDERED: FERROUS SULFATE 325 MG TAB PO SCH (09:00)
[2018-02-14] MEDS ORDERED: HYDROCHLOROTHIAZIDE 25 MG TAB PO SCH ×2 (09:00)
[2018-02-14] MEDS ORDERED: TORSEMIDE 10 MG TAB PO SCH (09:00)
[2018-02-14] MEDS ORDERED: TERAZOSIN HCL 1 MG CAP PO SCH (09:00)
[2018-02-14] MEDS ORDERED: PANTOPRAZOLE SODIUM 40 MG SUSPDR.PKT PO SCH (09:00)
[2018-02-14] MEDS ORDERED: DEXTROSE 50% SYRINGE 50 ML IV PRN (11:45)
--- NOTE | 2018-02-14 11:56 | Discharge Summary ---
PRINCIPAL DIAGNOSES 1. Acute bronchitis. 2. Uncontrolled diabetes mellitus. 3. End-stage renal disease on hemodialysis. 4. Morbid obesity. 5. Coronary artery disease. SECONDARY DIAGNOSIS: Hypertension. CHIEF COMPLAINT: Cough. HISTORY OF PRESENT ILLNESS: This is a 47-year-old man with cough. Please refer to the H and P for further details. HOSPITAL COURSE: The patient was found to have acute bronchitis and uncontrolled diabetes mellitus. Imaging of the lungs was negative for pneumonia. He had end-stage renal disease and received hemodialysis. He has morbid obesity and needs to lose weight. Caloric restriction as outpatient. He had coronary artery disease and hypertension. Medications were continued. DISCHARGE MEDICATIONS: Per electronic medical record. FOLLOWUP: With primary care doctor in 1 week. CONDITION ON DISCHARGE: Stable and improving. DISCHARGE LOCATION: Home. JAYY PEÑALOZA MD Job#: [id number]
[2018-02-14] MEDS: INSULIN LISPRO 100 UNIT/1 ML 3ML VIAL SQ SCH ×5 (12:00→21:00)
[2018-02-14] MEDS ORDERED: CEFTRIAXONE SOD 1 GM VIAL IV SCH (12:00)
[2018-02-14] MEDS ORDERED: AZITHROMYCIN250 MG PO (12:24)
[2018-02-14] MEDS ORDERED: INSULIN DETEMIR 100 UNIT/ML PEN SQ SCH (12:30)
--- NOTE | 2018-02-14 15:12 | Consultation ---
DATE OF CONSULTATION: February 14, 2018 HISTORY OF PRESENT ILLNESS: Patient is very well known to me. He is a dialysis patient of ours 47-year-old with underlying history of type 2 diabetes, hypertension, anemia, chronic kidney disease, congestive heart failure, sleep apnea and secondary hypoparathyroidism, on dialysis due to hypertensive diabetic chronic kidney disease, now dialysis dependent, admitted with cough with greenish phlegm production. Chest x-ray by my exam shows left-sided lower lobe infiltrate, increased vascular markings bilaterally. SOCIAL HISTORY: Patient does not smoke or drink. FAMILY HISTORY: Significant for hypertension and diabetes. CURRENT LABS: Hemoglobin 11.1, potassium 3.7, creatinine 5.2, and blood sugar nurse just took is 430. ALLERGIES: IODINE. CURRENT MEDICATIONS: Patient is on atorvastatin 40 mg at bedtime, azithromycin IV, hydrochlorothiazide daily, which I am going to stop. He is on isosorbide 3 times a day, losartan 50 mg daily, metoprolol 100 mg p.o. b.i.d, nifedipine 60 mg q.12, ondansetron, pantoprazole, Renagel 4000 mg p.o. t.i.d. with meals, Hytrin 2 mg p.o. daily, 2 mg daily. PHYSICAL EXAMINATION GENERAL: Awake, alert, lying supine, no apparent distress. VITALS: Blood pressure of 149/56, pulse rate 88, respiratory rate 17. HEAD AND NECK: Cornea clear. Oral mucosa moist. Neck veins slightly distended. LUNGS: Rales noted right lower zone more than left with scattered rhonchi and expiratory. HEART: S1, S2 audible. No rubs or gallop. ABDOMEN: Otherwise soft, nontender, distended. Flanks full, but soft. No visceromegaly. EXTREMITIES: Lower extremity examination shows trace to 1+ ankle edema. IMPRESSION AND PLAN: Underlying fluid overload with possible left-sided pneumonia. I will expand the antibiotic coverage to Rocephin. We will dialyze today. Patient will add Tessalon Perles for his cough. He has paroxysmal cough, which makes him quite lightheaded. Add nebulizers. I will discontinue hydrochlorothiazide. Continue with azithromycin, fluid restriction, renal diet, phosphorus binders. Job#: [id number] MENDEZ
[2018-02-14] MEDS: BENZONATATE 100 MG CAP PO SCH ×2 (16:27→23:23)
[2018-02-14] MEDS ORDERED: SODIUM CHLORIDE 0.9% 1000ML 2,000 ML ONE (18:36)
[2018-02-14] MEDS ORDERED: HEPARIN SOD (PORCINE) 1000 UNIT/ML SDV INJ ONE (19:15)
[2018-02-14] MEDS ORDERED: HEPARIN SOD (PORCINE) 5,000 UNIT/ML VIAL SC ONE (19:15)
[2018-02-14] MEDS: AZITHROMYCIN 500MG/NS 250 ML 250 ML IV SCH (20:38)
[2018-02-14] MEDS ORDERED: ATORVASTATIN 20 MG TAB PO SCH (21:00)
[2018-02-15] VITALS: BP 129/66
== END 2018-02-15 06:30 | disposition home or self-care (01) ==
LOC: ER 20:39 → ERHOLD 02-13 01:12 → IMCU 02-13 04:37
PROVIDERS: ADMIT Internal Medicine; ATTEND Internal Medicine
DX: J20.9 Acute bronchitis, unspecified (principal); N18.6 End stage renal disease; Z83.3 Family history of diabetes mellitus; Z82.49 Family history of ischemic heart disease and other diseases of the circulatory system; E11.65 Type 2 diabetes mellitus with hyperglycemia; E11.22 Type 2 diabetes mellitus with diabetic chronic kidney disease; I12.0 Hypertensive chronic kidney disease with stage 5 chronic kidney disease or end stage renal disease; D63.1 Anemia in chronic kidney disease; E87.2 Acidosis; N25.81 Secondary hyperparathyroidism of renal origin; Z99.2 Dependence on renal dialysis; E66.01 Morbid (severe) obesity due to excess calories; Z68.42 Body mass index [BMI] 45.0-49.9, adult; T38.3X6A Underdosing of insulin and oral hypoglycemic [antidiabetic] drugs, initial encounter; Z91.128 Patient's intentional underdosing of medication regimen for other reason; I25.2 Old myocardial infarction; Z95.0 Presence of cardiac pacemaker; Z86.73 Personal history of transient ischemic attack (TIA), and cerebral infarction without residual deficits
CPT/HCPCS: 36415 ×2; 71045; 80053 ×2; 80061; 82550 ×2; 82553 ×2; 82805; 82948 ×2; 83605; 83735; 83880; 84484 ×2; 85025 ×2; 85610; 85730; 87040; 90935; 93005; 99284; G0378 ×3; J0456 ×2; J0696; J1644; J7030; J7050

== ENCOUNTER 2018-03-04 12:36 | Inpatient (IN) | payer BC, MEDICARE ==
[~2018-03-04] VITALS: Ht 182.9 cm; Wt 156.1 kg
[~2018-03-04 12:36] MED LIST changes: +AZITHROMYCIN250 MG PO
--- OUTSIDE RECORDS SUMMARY | 2018-03-04 12:39 | XMS REPORT | Clinical Summary ---
Author Author MUKESH [facility] Address Unknown Phone Unavailable Care Team Providers Care [employer] Manager Name Role Phone PCP Unavailable Allergies Active [...] 1 tablet (81 mg 30 tablet 2 04/25/20 04/25/20 Active tablet total) by mouth daily. 17 18 metoprolol (LOPRESSOR) Take 0.5 tablets (50 mg 60 tablet 0 04/25/20 Active 100 MG tablet total) by mouth 2 (two) 17 times daily. miscellaneous medical 3 in 1 toilet. 1 each 0 04/25/20 Active supply Misc 17 metoprolol (LOPRESSOR) Take 100 mg by mouth 2 04/25/20 Discontin 100 MG tablet (two) times daily. 17 ued sodium bicarbonate 325 MG Take 650 mg by mouth 2 04/13/20 Discontin tablet (two) times daily . 17 ued docusate sodium (COLACE) Take 100 mg by [...] hr tablet (two) times daily. 17 ued oxyCODONE-acetaminophen Take 1 tablet by mouth 30 tablet 0 04/25/20 05/05/20 (PERCOCET) 10-325 mg per every 4 (four) hours as 17 17 tablet needed for up to 10 days. Max Daily Amount: 6 tablets Active Problems Patient Care Coordination Note Endocrinology- Christine Rodriguez [phone] Parachute Mender- Petr Betancur [phone] Neurologist- Huong Lobo- [phone] Vscular Surgeon- Rafael Lebron [phone] Problem Noted Date CAD (coronary artery disease) 04/22/2017 Acute pulmonary insufficiency following thoracic surgery ([facility]LY [facility]) 04/22/2017 Acute blood loss anemia 04/22/2017 ESRD (end stage renal disease) on dialysis ([facility]) 02/02/2017 Last Assessment & Plan: On HD via LUE AVF Diabetes ([facility]) 02/02/2017 Last Assessment & Plan: On insulin, A1c 6.9% Syncope 03/01/2013 Last Assessment & Plan: No hx of syncope for last few years TIA (transient ischemic attack) 03/01/2013 Last Assessment & Plan: No TIA for last few years. Encounters Date Type Specialty Care Team Description 11/29/2017 Telephone Transplant Ene Owen Y Appointment 09/20/2017 Telephone Transplant Vale Molina RN Kidney Transplant Pre-evaluation 04/22/2017 [facility] Cardiology Bay Pina MD Acute pulmonary - Encounter insufficiency following 04/25/2017 thoracic surgery (HCC) 04/22/2017 Procedure Pass 04/22/2017 Surgery Bay Pina MD BYPASS,CORONARY LIMITED ACCESS 04/21/2017 Anesthesia Baljit Adames MD Event 04/20/2017 Hospital Cardiology Bay Pina MD Encounter 04/20/2017 Hospital Bay Pina MD Encounter 04/20/2017 Hospital Pre-Admission Testing Bay Pina MD Encounter 04/20/2017 Orders Only Cardiology Sharon Pina NP 04/13/2017 [facility] Terrence Le MD ESRD (end stage renal Encounter disease) (FORM[facility]LY [facility]);Pre-transplant evaluation for ESRD (end stage renal disease) 04/13/2017 Orders Only General Internal Medicine 04/13/2017 Procedure Pass 04/13/2017 Surgery Terrence Le MD L CATH & CORONARY ANGIOS after 03/03/2017 Family History Medical History Relation Name Comments [...] Taken Blood Pressure 137/73 04/25/2017 7:25 AM VETERINARY SCIENCE TE[employer]ER Pulse 76 04/25/2017 7:25 AM VETERINARY SCIENCE TEACHER Temperature 36.9 C (98.5 F) 04/25/2017 7:25 AM VETERINARY SCIENCE TEACHER Respiratory Rate 18 04/25/2017 7:25 AM VETERINARY SCIENCE TEACHER Oxygen Saturation 97% 04/25/2017 7:25 AM VETERINARY SCIENCE TEACHER Inhaled Oxygen - - Concentration Weight 142.6 kg (314 lb 6.4 oz) 04/25/2017 4:00 AM VETERINARY SCIENCE TEACHER Height 182.9 cm (6') 04/22/2017 10:00 AM VETERINARY SCIENCE TEACHER Body Mass Index 42.64 04/25/2017 4:00 AM VETERINARY SCIENCE TEACHER Plan of Treatment Health Maintenance Due Date Last Done Comments INFLUENZA VACCINE 02/14/2018 Implants Implanted Type Area Block Handler Device Expiration Model / Identifier Date Serial / Lot Sut Surg Stl 7 18g 18in Mls Mp [place]/Art N/A: J &J:ETHICON 01/14/2022 [id number] / [id number] - Snone hroscopy Sternum NONE / Implanted: Qty: 3 on 04/22/2017 by [id number] Bay Pina MD Procedures Procedure Name Priority Date/Time Associated Diagnosis Comments STERNOTOMY 04/22/2017 CVD (cardiovascular 10:30 AM V[employer]ERINARY SCIENCE TEACHER disease) Case Notes MINIMALLY INVASIVE CORONARY BYPASS, LEFT INTERNAL MAMMORY ARTERY TO LEFT ANTERIOR DESCENDING ARTERY Special Needs (REQ TF) BYPASS,CORONARY LIMITED 04/22/2017 CVD (cardiovascular ACCESS 10:30 AM VETERINARY SCIENCE TEACHER disease) Case Notes MINIMALLY INVASIVE CORONARY BYPASS, LEFT INTERNAL MAMMORY ARTERY TO LEFT ANTERIOR DESCENDING ARTERY Special Needs (REQ TF) ABD AO & LOWER EXT 04/13/2017 Z01.818 PRE TRP EVAL FOR ANGIOS/ POSS PPI 3:01 PM V[employer]IN[employer] SCIENCE TEACHER ESRD Case Notes POP6 POSS PCI L CATH & CORONARY ANGIOS 04/13/2017 Z01.818 PRE TRP EVAL FOR 3:01 PM V[employer]IN[employer] SCIENCE TEACHER ESRD Case Notes POP6 POSS PCI after 03/03/2017 Results * RHYTHM STRIP - SCAN (05/04/2017 12:50 PM) Only the most recent of 2 results within the time period is included. * POC-Glucose meter (04/25/2017 7:29 AM) Only the most recent of 14 results within the time period is included. Component Value Ref Range POC-Glucose Meter 199 (H)Comment: TESTED AT [address] 70 - 110 mg/dL [facility] [id number] Specimen Performing Laboratory Blood [facility] [address] [address] * CBC with platelet count + automated diff (04/25/2017 4:13 AM) Only the most recent of 5 results within the time period is included. Component Value Ref Range WBC 9.0 3.5 - 10.5 K/L RBC 2.99 (L) 4.63 - 6.08 M/L Hemoglobin 9.3 (L) 13.7 - 17.5 GM/DL [...] # Neutros 5.76 (H) 1.78 - 5.38 K/L # Lymphs 2.00 1.32 - 3.57 K/L # Monos 1.00 (H) 0.30 - 0.82 K/L # Eos 0.17 0.04 - 0.54 K/L # Baso 0.04 0.01 - 0.08 K/L Immature 0 0 - 1 % Granulocytes-Relative Specimen Performing Laboratory Blood - Arm, Left [address] [address] * CBC with platelet count + automated diff (04/25/2017 4:13 AM) Only the most recent of 5 results within the time period is included. Specimen Performing Laboratory Blood Narrative The following orders were created for panel order CBC with platelet count + automated diff. Procedure Abnormality Status --------- ------ CBC with platelet count ...[[id number]]AbnormalFinal result Please view results for these tests [...] PATIENTS. Specimen Performing Laboratory Blood - Arm, Left [address] [address] * XR chest 1 view portable / bedside (04/24/2017 6:09 AM) Only the most recent of 3 results within the time period is included. Specimen Performing Laboratory GE RIS Narrative FINAL REPORT RAD, CHEST, 1 VIEW, NON DEPT INDICATION: pulmonary congestion COMPARISON: Prior day's exam FINDINGS: Portable frontal view of the chest. IMPRESSION: Support Lines: Brentford-Boubacar catheter has been removed. Surgical drains are present, unchanged. Lungs and pleura: Minimal left subsegmental atelectasis and trace effusion. No pneumothorax. Heart and mediastinum: Stable contours. Stable surgical changes. Additional findings: None. Signed: JR Hogan Robert MD Report Verified Date/Time:04/24/2017 06:33:56 Reading Location: [facility] C013Y CT Body Reading Room Procedure Note Interface, External Ris In - 04/24/2017 6:36 AM VETERINARY SCIENCE TEACHER FINAL REPORT RAD, CHEST, 1 VIEW, NON DEPT INDICATION: pulmonary congestion COMPARISON: Prior day's exam FINDINGS: Portable frontal view of the chest. IMPRESSION: Support Lines: Brentford-Boubacar catheter has been removed. Surgical drains are present, unchanged. Lungs and pleura: Minimal left subsegmental atelectasis and trace effusion. No pneumothorax. Heart and mediastinum: Stable contours. Stable surgical changes. Additional findings: None. Signed: JR Hogan Robert MD Report Verified Date/Time: 04/24/2017 06:33:56 Reading Location: [facility] B1 C013Y CT Body Reading Room * Hepatitis B surface antigen (04/23/2017 11:56 PM) Only the most recent of 2 results within the time period is included. Component Value Ref Range hepatitis B Surface Ag Nonreactive Nonreactive Specimen Performing Laboratory Blood [facility] [address] [address] * Phosphorus (04/23/2017 3:18 AM) Component Value Ref Range Phosphorus 5.2 (H) 2.3 - 4.7 mg/dL Specimen [place] [address] * Magnesium (04/23/2017 3:18 AM) Component Value Ref Range Magnesium 2.4 1.6 - 2.6 mg/dL Specimen [place] [address] * ANESTHESIA RICARDO (04/22/2017 4:03 PM) Narrative Gallo Bacon MD 04/22/20174:03 PM RICARDO Date: 04/22/2017 12:49 [...] Gallo Bacon MD - 04/22/2017 12:49 PM V[employer]IN[employer] SCIENCE TEACHER Formatting of this note may be different [...] created for panel order [facility] (ABG,NA,K,H&H,GLUCOSE). Procedure Abnormality Status --------- ------ Blood gas, arterial[[id number]]Abnorma lFinal result Sodium Na-Stat Lab[[id number]] NormalFinal result Potassium-Stat Lab[[id number]] Normal Final result Glucose-Stat Lab[[id number]] AbnormalFinal result HGB/HCT (H&H)-Stat Lab[[id number]] AbnormalFinal result Please view results for these tests on the individual orders. * Potassium-Stat Lab (04/22/2017 3:54 PM) Only the most recent of 3 results within the time period is included. Component Value Ref Range Potassium 3.8 3.6 - 5.5 meq/L Specimen Performing Laboratory Blood, Arterial [address] [address] * Sodium Na-Stat Lab (04/22/2017 3:54 PM) Only the most recent of 3 results within the time period is included. Component Value Ref Range Sodium 135 135 - 148 meq/L Specimen Performing Laboratory Blood, Arterial [address] [address] * Glucose-Stat Lab (04/22/2017 3:54 PM) Only the most recent of 3 results within the time period is included. Component Value Ref Range Glucose 198 (H) 70 - 110 mg/dL Specimen Performing Laboratory Blood, [address] [address] * Oxygen saturation, measured (04/22/2017 3:54 PM) Component Value Ref Range O2 Saturation (Measured) 84.7 % Specimen Performing Laboratory Blood [address] [address] * HGB/HCT (H&H)-Stat Lab (04/22/2017 3:54 PM) Only the most recent of 3 results within the time period is included. Component Value Ref Range Hemoglobin 10.7 (L) 13.0 - 16.8 g/dL Hematocrit 31.0 (L) 40.0 - 50.0 % Specimen Performing Laboratory Blood, Arterial [address] [address] * Calcium, Ionized (04/22/2017 3:54 PM) Only the most recent of 2 results within the time period is included. Component Value Ref Range Calcium, Ion 1.10 (L) 1.12 - 1.27 mmol/L pH, Blood 7.47 Specimen Performing Laboratory Blood [address] [address] * Lactic acid, arterial, whole blood (04/22/2017 3:54 PM) Component Value Ref Range Lactate, Art 1.7 0.5 - 2.2 mmol/L Specimen Performing Laboratory Blood, Arterial [address] [address] Narrative Effective 09/18/2015: Units/Reference Range Change New: 0.5-2.2 mmol/LPrevious: 5-20 mg/dL * CBC (Hemogram only) (04/22/2017 3:54 PM) Component Value Ref Range WBC 12.2 (H) 3.5 - 10.5 K/L RBC 3.22 (L) 4.63 - 6.08 M/L Hemoglobin 10.1 (L) 13.7 - 17.5 GM/DL [...] 0 /100 WBC Specimen Performing Laboratory Blood [address] [address] * Potassium-STAT (04/22/2017 3:54 PM) Component Value Ref Range Potassium 4.1 3.5 - 5.1 meq/L Specimen Performing Laboratory Blood [address] [address] * Glucose-STAT (04/22/2017 3:54 PM) Component Value Ref Range Glucose 209 (H) 70 - 105 mg/dL Specimen Performing Laboratory Blood [address] [address] * Blood gas, arterial (04/22/2017 3:54 PM) [...] 60.0 % Specimen Performing Laboratory Blood, Arterial [address] [address] * POC ACTIVATED CLOTTING TIME (04/22/2017 2:47 PM) Only the most recent of 8 results within the time period is included. Component Value Ref Range Activated Clotting Time 120Comment: TESTED AT [place] [address] Specimen Performing Laboratory Blood [address] [address] * TRANSFUSION SERVICE REPORT - SCAN (04/21/2017 6:08 PM) * VASCULAR DIAGRAM -SCAN (04/21/2017 2:22 PM) [...] MD Report Verified Date/Time:04/20/2017 15:51:22 Reading Location: [address] Radiology Reading Room Procedure Note Interface, External Ris In - 04/20/2017 3:53 PM VETERINARY SCIENCE TEACHER FINAL REPORT Chest, 2 views. Clinical History: pre op Comparison Study: June 23, 2016 Findings: The heart and lungs are within normal limits. The pleural spaces are clear. No significant bony or soft tissue abnormalities are seen. Impression: No active cardiopulmonary disease. Signed: Richard Arias MD Report Verified Date/Time: 04/20/2017 15:51:22 Reading Location: [address] Radiology Reading Room * Type and screen, automated (04/20/2017 3:02 PM) Component Value Ref Range ABO/RH AUTOMATED (BEAKER) A POSITIVE Ab Scrn NEGATIVE Specimen Performing Laboratory Blood [address] [address] * aPTT (04/20/2017 3:02 PM) Component Value Ref Range PTT 27.3 22.5 - 36.0 seconds Specimen Performing Laboratory Blood [address] [address] * Prothrombin time/INR (04/20/2017 3:02 PM) Component Value Ref Range Protime 11.9 11.7 - 14.7 seconds INR 0.9 <=5.9 Specimen Performing Laboratory Blood [address] [address] Narrative RECOMMENDED COUMADIN/WARFARIN INR THERAPY RANGES STANDARD DOSE: 2.0 - 3.0 Includes: PROPHYLAXIS for venous thrombosis, systemic embolization; TREATMENT for venous thrombosis and/or pulmonary embolus. HIGH RISK: Target INR is 2.5-3.5 for patients with mechanical heart valves. * Urinalysis w/ Microscopic (04/20/2017 3:01 PM) Component Value Ref Range Color, UA Light Yellow Clarity, UA Clear Specific [place], UA 1.006 1.001 - 1.035 pH, UA [...] /HPF Specimen Source Specimen Performing Laboratory Urine [address] [address] * Electrocardiogram, 12-lead (04/20/2017 3:00 PM) Only the most recent of 2 results within the time period is included. Specimen Performing Laboratory GE MUSE Narrative Ventricular Rate 70 BPM Atrial Rate 70 BPM P-R Interval 214 ms QRS Duration 114 ms Q-T Interval 432 ms QTC Calculation(Bazett) 466 ms P [place] 72 degrees R [place] 7 degrees T [place] 83 degrees Sinus rhythm with 1st degree A-V block Interatrial conduction delay RsR' in V1-V2 Prolonged QT When compared with ECG of 13-APR-2017 12:35, No significant change was found Confirmed by MD SOFIA, BLANK ([id number]) on 04/21/2017 6:14:10 AM Procedure Note Interface, External Ris In - 04/21/2017 6:14 AM V[employer]ERINARY SCIENCE TEACHER Ventricular Rate 70 BPM Atrial Rate 70 BPM P-R Interval 214 ms QRS Duration 114 ms Q-T Interval 432 ms QTC Calculation(Bazett) 466 ms P [place] 72 degrees R [place] 7 degrees T [place] 83 degrees Sinus rhythm with 1st degree [...] Specimen Performing Laboratory Blood - Arm, Left [address] [address] Narrative RECOMMENDED COUMADIN/WARFARIN INR THERAPY RANGES STANDARD DOSE: 2.0 - 3.0 Includes: PROPHYLAXIS for venous thrombosis, systemic embolization; TREATMENT for venous thrombosis and/or pulmonary embolus. HIGH RISK: Target INR is 2.5-3.5 for patients with mechanical heart valves. after 03/03/2017
[2018-03-04] MEDS ORDERED: ASPIRIN 81 MG CHEW TAB PO ONE (12:45)
--- NOTE | 2018-03-04 13:45 | Diagnostic Imaging Report ---
History: Right-sided numbness Comparison studies: None Technique: Axial images were obtained from the skull base to the vertex. Coronal and sagittal reconstructions obtained from the axial data. Dose modulation, iterative reconstruction, and/or weight based adjustment of the mA/kV was utilized to reduce the radiation dose to as low as reasonably achievable. Findings: Scalp/skull: No abnormalities. No fractures, blastic or lytic lesions. Extra-axial spaces: No masses. No fluid collections. Brain sulci: Appropriate for age. Ventricles: Normal in size and configuration. No hydrocephalus. Parenchyma: No abnormal densities. No masses, hemorrhage, acute or chronic cortical vascular insults. Sellar/suprasellar region: No abnormalities Craniocervical junction: Patent foramen magnum. No Chiari one malformation. IMPRESSION: No abnormalities . Signed by: DR Brody Brown M.D. on 03/04/2018 1:42 PM
[2018-03-04 14:23] LABS: BASOPHILS # (AUTO) 0.1 (0.0-0.1); BASOPHILS % 1.2 % (0.0-1.0); EOSINOPHILS # (AUTO) 0.1 (0.0-0.4); EOSINOPHILS % 1.8 % (0.0-6.0); HEMATOCRIT 33.6 % (38.2-49.6); HEMOGLOBIN 11.2 g/dL (14.0-18.0); LYMPHOCYTES # (AUTO) 1.3 (1.0-3.2); MEAN CORPUSCULAR HEMOGLOBIN 32.9 pg (28-32); MEAN CORPUSCULAR HGB CONC 33.3 g/dL (31-35); MEAN CORPUSCULAR VOLUME 98.8 fL (81-99); MONOCYTES # (AUTO) 0.7 (0.2-0.8); MONOCYTES % 11.3 % (4.4-11.3); NEUTROPHILS # (AUTO) 3.8 (2.1-6.9); NEUTROPHILS % 63.2 % (38.7-80.0); PLATELET COUNT 241 x10e3/uL (140-360)
[2018-03-04 14:41] LABS: ALBUMIN/GLOBULIN RATIO 1.1 (0.8-2.0); ANION GAP 19.9 mmol/L (8-16); CALCIUM 10.1 mg/dL (8.4-10.2); CREATININE, SERUM 2.68 mg/dL (0.72-1.25); POTASSIUM 3.9 mmol/L (3.5-5.1)
[2018-03-04 14:46] LABS: CREATINE KINASE MB 4.8 ng/mL (0-5.0)
[2018-03-04] MEDS ORDERED: ASPIRIN EC81 MG PO (15:36)
[2018-03-04] MEDS ORDERED: TOUJEO SQ (15:36)
[2018-03-04] MEDS ORDERED: HUMALOG100 UNIT/1 SC (15:36)
[2018-03-04] MEDS ORDERED: METOPROLOL SUCC50 MG PO (15:36)
[2018-03-04] MEDS ORDERED: BUMETANIDE2 MG PO (15:36)
[2018-03-04] MEDS ORDERED: FOSRENOL1000 MG PO (15:36)
--- OUTSIDE RECORDS SUMMARY | 2018-03-04 15:36 | XMS REPORT | Clinical Summary ---
Author Author MUKESH [facility] Address Unknown Phone Unavailable Care Team Providers Care Training Specialist Name Role Phone PCP Unavailable Allergies Active [...] Patient Care Coordination Note Endocrinology- Christine Rodriguez [phone] Upholstery Restorer- Petr Betancur [phone] Neurologist- Huong Lobo- [phone] Vscular Surgeon- Rafael Lebron [phone] Problem Noted Date CAD (coronary artery disease) 04/22/2017 Acute pulmonary insufficiency following thoracic surgery ([facility]) 04/22/2017 Acute blood loss anemia 04/22/2017 ESRD (end stage renal disease) on dialysis ([facility]) 02/02/2017 Last Assessment & Plan: On HD via LUE AVF Diabetes ([facility]) 02/02/2017 Last Assessment & Plan: On insulin, A1c 6.9% Syncope 03/01/2013 Last Assessment & Plan: No hx of syncope for last few years TIA (transient ischemic attack) 03/01/2013 Last Assessment & Plan: No TIA for last few years. Encounters Date Type Specialty Care Team Description 11/29/2017 Telephone Transplant Ene Owen Y Appointment 09/20/2017 Telephone Transplant Vale Molina RN Kidney Transplant Pre-evaluation 04/22/2017 [facility] Cardiology Bay Pina MD Acute pulmonary - Encounter insufficiency following 04/25/2017 thoracic surgery (HCC) 04/22/2017 Procedure Pass 04/22/2017 Surgery Bay Pina MD BYPASS,CORONARY LIMITED ACCESS 04/21/2017 Anesthesia Baljit Adames MD Event 04/20/2017 Hospital Cardiology Bay Pina MD Encounter 04/20/2017 Hospital Bay Pina MD Encounter 04/20/2017 Hospital Pre-Admission Testing Bay Pina MD Encounter 04/20/2017 Orders Only Cardiology Sharon Pina NP 04/13/2017 [facility] Terrence Le MD ESRD (end stage renal Encounter disease) ([facility]);Pre-transplant evaluation for ESRD (end stage renal disease) [...] Taken Blood Pressure 137/73 04/25/2017 7:25 AM [facility] Pulse 76 04/25/2017 7:25 AM [facility] Temperature 36.9 C (98.5 F) 04/25/2017 7:25 AM [facility] Respiratory Rate 18 04/25/2017 7:25 AM [facility] Oxygen Saturation 97% 04/25/2017 7:25 AM [facility] Inhaled Oxygen - - Concentration Weight 142.6 kg (314 lb 6.4 oz) 04/25/2017 4:00 AM [facility] Height 182.9 cm (6') 04/22/2017 10:00 AM [facility] Body Mass Index 42.64 04/25/2017 4:00 AM [facility] Plan of Treatment Health Maintenance Due Date Last Done Comments INFLUENZA VACCINE 02/14/2018 Implants Implanted Type Area Actuarial Internship Device Expiration Model / Identifier Date Serial / Lot Sut Surg Stl 7 18g 18in Mls Mp [place]/Art N/A: J &J:ETHICON 01/14/2022 [id number] / [id number] - Snone hroscopy Sternum NONE / Implanted: Qty: 3 on 04/22/2017 by [id number] Bay Pina MD Procedures Procedure Name Priority Date/Time Associated Diagnosis Comments STERNOTOMY 04/22/2017 CVD (cardiovascular 10:30 AM [facility] disease) Case Notes MINIMALLY INVASIVE CORONARY BYPASS, LEFT INTERNAL MAMMORY ARTERY TO LEFT ANTERIOR DESCENDING ARTERY Special Needs (REQ TF) BYPASS,CORONARY LIMITED 04/22/2017 CVD (cardiovascular ACCESS 10:30 AM [facility] disease) Case Notes MINIMALLY INVASIVE CORONARY BYPASS, LEFT INTERNAL MAMMORY ARTERY TO LEFT ANTERIOR DESCENDING ARTERY Special Needs (REQ TF) ABD AO & LOWER EXT 04/13/2017 Z01.818 PRE TRP EVAL FOR ANGIOS/ POSS PPI 3:01 PM [facility] ESRD Case Notes POP6 POSS PCI L CATH & CORONARY ANGIOS 04/13/2017 Z01.818 PRE TRP EVAL FOR 3:01 PM [facility] ESRD Case Notes POP6 POSS PCI after 03/03/2017 Results * RHYTHM STRIP - SCAN (05/04/2017 12:50 PM) Only the most recent of 2 results within the time period is included. * POC-Glucose meter (04/25/2017 7:29 AM) Only the most recent of 14 results within the time period is included. Component Value Ref Range POC-Glucose Meter 199 (H)Comment: TESTED AT [address] 70 - 110 mg/dL [facility] [address] Specimen Performing Laboratory Blood [facility] [address] [address] * CBC with platelet count + automated [...] Specimen Performing Laboratory Blood - Arm, Left [address] [address] * CBC with platelet count + automated diff (04/25/2017 4:13 AM) Only the most recent of 5 results within the time period is included. Specimen Performing Laboratory Blood Narrative The following orders were created for panel order CBC with platelet count + automated diff. Procedure Abnormality Status --------- ------ CBC with platelet count ...[[id number]]AbnormalFinal result Please view results for these tests [...] Specimen Performing Laboratory Blood - Arm, Left [address] [address] * XR chest 1 view portable / bedside (04/24/2017 6:09 AM) Only the most recent of 3 results within the time period is included. Specimen Performing Laboratory GE RIS Narrative FINAL REPORT RAD, CHEST, 1 VIEW, NON DEPT INDICATION: pulmonary congestion COMPARISON: Prior day's exam FINDINGS: Portable frontal view of the chest. IMPRESSION: Support Lines: Strong-Boubacar catheter has been removed. Surgical drains are present, unchanged. Lungs and pleura: Minimal left subsegmental atelectasis and trace effusion. No pneumothorax. Heart and mediastinum: Stable contours. Stable surgical changes. Additional findings: None. Signed: JR Hogan Robert MD Report Verified Date/Time:04/24/2017 06:33:56 Reading Location: [facility] C013Y CT Body Reading Room Procedure Note Interface, External Ris In - 04/24/2017 6:36 AM [facility] FINAL REPORT RAD, CHEST, 1 VIEW, NON DEPT INDICATION: pulmonary congestion COMPARISON: Prior day's exam FINDINGS: Portable frontal view of the chest. IMPRESSION: Support Lines: Strong-Boubacar catheter has been removed. Surgical drains are present, unchanged. Lungs and pleura: Minimal left subsegmental atelectasis and trace effusion. No pneumothorax. Heart and mediastinum: Stable contours. Stable surgical changes. Additional findings: None. Signed: JR Hogan Robert MD Report Verified Date/Time: 04/24/2017 06:33:56 Reading Location: [facility] [address] Body Reading Room * Hepatitis B surface antigen (04/23/2017 11:56 PM) Only the most recent of 2 results within the time period is included. Component Value Ref Range hepatitis B Surface Ag Nonreactive Nonreactive Specimen Performing Laboratory Blood [facility] [address] [address] * Phosphorus (04/23/2017 3:18 AM) Component Value Ref Range Phosphorus 5.2 (H) 2.3 - 4.7 mg/dL Specimen [place] [address] * Magnesium (04/23/2017 3:18 AM) Component Value Ref Range Magnesium 2.4 1.6 - 2.6 mg/dL Specimen [place] [address] * ANESTHESIA RICARDO (04/22/2017 4:03 PM) Narrative [...] Gallo Bacon MD - 04/22/2017 12:49 PM [facility] Formatting of this note may be different [...] Procedure Abnormality Status --------- ------ Blood gas, arterial[[id number]]Abnorma lFinal result Sodium Na-Stat Lab[[id number]] NormalFinal result Potassium-Stat Lab[[id number]] Normal Final result Glucose-Stat Lab[[id number]] AbnormalFinal result HGB/HCT (H&H)-Stat Lab[[id number]] AbnormalFinal result Please view results for these tests on the individual orders. * Potassium-Stat Lab (04/22/2017 3:54 PM) Only the most recent of 3 results within the time period is included. Component Value Ref Range Potassium 3.8 3.6 - 5.5 meq/L Specimen Performing Laboratory Blood, Arterial [address] [address] * Sodium Na-Stat Lab (04/22/2017 3:54 PM) Only the most recent of 3 results within the time period is included. Component Value Ref Range Sodium 135 135 - 148 meq/L Specimen Performing Laboratory Blood, Arterial [address] [address] * Glucose-Stat Lab (04/22/2017 3:54 PM) Only the most recent of 3 results within the time period is included. Component Value Ref Range Glucose 198 (H) 70 - 110 mg/dL Specimen Performing Laboratory Blood, [address] [address] * Oxygen saturation, measured (04/22/2017 3:54 PM) Component Value Ref Range O2 Saturation (Measured) 84.7 % Specimen Performing Laboratory Blood [address] [address] * HGB/HCT (H&H)-Stat Lab (04/22/2017 3:54 PM) Only the most recent of 3 results within the time period is included. Component Value Ref Range Hemoglobin 10.7 (L) 13.0 - 16.8 g/dL Hematocrit 31.0 (L) 40.0 - 50.0 % Specimen Performing Laboratory Blood, Arterial [address] [address] * Calcium, Ionized (04/22/2017 3:54 PM) Only the most recent of 2 results within the time period is included. Component Value Ref Range Calcium, Ion 1.10 (L) 1.12 - 1.27 mmol/L pH, Blood 7.47 Specimen Performing Laboratory Blood [address] [address] * Lactic acid, arterial, whole blood (04/22/2017 3:54 PM) Component Value Ref Range Lactate, Art 1.7 0.5 - 2.2 mmol/L Specimen Performing Laboratory Blood, Arterial [address] [address] Narrative Effective 09/18/2015: Units/Reference Range Change New: [...] 0 /100 WBC Specimen Performing Laboratory Blood [address] [address] * Potassium-STAT (04/22/2017 3:54 PM) Component Value Ref Range Potassium 4.1 3.5 - 5.1 meq/L Specimen Performing Laboratory Blood [address] [address] * Glucose-STAT (04/22/2017 3:54 PM) Component Value Ref Range Glucose 209 (H) 70 - 105 mg/dL Specimen Performing Laboratory Blood [address] [address] * Blood gas, arterial (04/22/2017 3:54 PM) [...] 60.0 % Specimen Performing Laboratory Blood, Arterial [address] [address] * POC ACTIVATED CLOTTING TIME (04/22/2017 2:47 PM) Only the most recent of 8 results within the time period is included. Component Value Ref Range Activated Clotting Time 120Comment: TESTED AT [place] [address] Specimen Performing Laboratory Blood [address] [address] * TRANSFUSION SERVICE REPORT - SCAN (04/21/2017 [...] MD Report Verified Date/Time:04/20/2017 15:51:22 Reading Location: [address] Radiology Reading Room Procedure Note Interface, External Ris In - 04/20/2017 3:53 PM [facility] FINAL REPORT Chest, 2 views. Clinical History: pre op Comparison Study: June 23, 2016 Findings: The heart and lungs are within normal limits. The pleural spaces are clear. No significant bony or soft tissue abnormalities are seen. Impression: No active cardiopulmonary disease. Signed: Richard Arias MD Report Verified Date/Time: 04/20/2017 15:51:22 Reading Location: [address] Radiology Reading Room * Type and screen, automated (04/20/2017 3:02 PM) Component Value Ref Range ABO/RH AUTOMATED (BEAKER) A POSITIVE Ab Scrn NEGATIVE Specimen Performing Laboratory Blood [address] [address] * aPTT (04/20/2017 3:02 PM) Component Value Ref Range PTT 27.3 22.5 - 36.0 seconds Specimen Performing Laboratory Blood [address] [address] * Prothrombin time/INR (04/20/2017 3:02 PM) Component Value Ref Range Protime 11.9 11.7 - 14.7 seconds INR 0.9 <=5.9 Specimen Performing Laboratory Blood [address] [address] Narrative RECOMMENDED COUMADIN/WARFARIN INR THERAPY RANGES STANDARD DOSE: 2.0 - 3.0 Includes: PROPHYLAXIS for venous thrombosis, systemic embolization; TREATMENT for venous thrombosis and/or pulmonary embolus. HIGH RISK: Target INR is 2.5-3.5 for patients with mechanical heart valves. * Urinalysis w/ Microscopic (04/20/2017 3:01 PM) Component Value Ref Range Color, UA Light Yellow Clarity, UA Clear Specific [place], UA 1.006 1.001 - 1.035 pH, UA [...] /HPF Specimen Source Specimen Performing Laboratory Urine [address] [address] * Electrocardiogram, 12-lead (04/20/2017 3:00 PM) Only the most recent of 2 results within the time period is included. Specimen Performing Laboratory GE MUSE Narrative Ventricular Rate 70 BPM Atrial Rate 70 BPM P-R Interval 214 ms QRS Duration 114 ms Q-T Interval 432 ms QTC Calculation(Bazett) 466 ms P [place] 72 degrees R [place] 7 degrees T [place] 83 degrees Sinus rhythm with 1st degree A-V block Interatrial conduction delay RsR' in V1-V2 Prolonged QT When compared with ECG of 13-APR-2017 12:35, No significant change was found Confirmed by MD SOFIA, BLANK ([id number]) on 04/21/2017 6:14:10 AM Procedure Note Interface, External Ris In - 04/21/2017 6:14 AM [facility] Ventricular Rate 70 BPM Atrial Rate 70 BPM P-R Interval 214 ms QRS Duration 114 ms Q-T Interval 432 ms QTC Calculation(Bazett) 466 ms P [place] 72 degrees R [place] 7 degrees T [place] 83 degrees Sinus rhythm with 1st degree [...] Specimen Performing Laboratory Blood - Arm, Left [address] [address] Narrative RECOMMENDED COUMADIN/WARFARIN INR THERAPY RANGES STANDARD DOSE: 2.0 - 3.0 Includes: PROPHYLAXIS for venous thrombosis, systemic embolization; TREATMENT for venous thrombosis and/or pulmonary embolus. HIGH RISK: Target INR is 2.5-3.5 for patients with mechanical heart valves. after 03/03/2017
[2018-03-04] MEDS ORDERED: DEXTROSE 50% SYRINGE 50 ML IV PRN ×2 (15:45→17:45)
[2018-03-04 17:38] VITALS: BP 138/77
[2018-03-04 17:45] LABS: CHOL/HDL RATIO 2.9 (3.9-4.7)
[2018-03-04] MEDS ORDERED: HYDRALAZINE HCL 20 MG/ML VIAL IV PRN (17:45)
[2018-03-04] MEDS ORDERED: HYDROCODONE/APAP 5MG-325MG TAB PO PRN (17:45)
[2018-03-04] MEDS ORDERED: MORPHINE SULFATE 2 MG/ML SYR IV PRN (17:45)
[2018-03-04] MEDS: INSULIN REGULAR, HUMAN 100 UNIT/1 ML 3ML VIAL SQ SCH ×2 (17:46→21:20)
[2018-03-04 17:54] VITALS: BP 138/77
--- NOTE | 2018-03-04 18:50 | History and Physical ---
CHIEF COMPLAINT: Right-sided weakness during dialysis. HISTORY OF PRESENT ILLNESS: A 47-year-old male with past medical history of type 2 diabetes, hypertension, morbid obesity, end-stage renal disease on dialysis, NE in the past x3 with stent placement, TIA, strokes in the past and hyperlipidemia, who comes into ED after dialysis when he was complaining of right-sided weakness towards the end of the treatment of dialysis. Patient reports that they removed approximately 4.8 liters of fluid today during dialysis. Of note, patient is always removing approximately 5 liters during HD. He reports that he had difficulty moving and he felt very numb and very heavy to move. He denies any slurred speech, but reports possibly having some facial drooping. His left side is all normal. He is able to grab things on the left, but his right arm and hand has a very weak butcher sensation. He denies any chest pain or palpitations. Patient is seen and evaluated at bedside on the medical floor at baseline with no other issues. He still reports having some right-sided heaviness in upper and lower extremities. REVIEW OF SYSTEMS PERTINENT POSITIVE: Right upper and lower extremity weakness with facial drooping. PERTINENT NEGATIVE: Denies any chest pain, palpitation, nausea, vomiting, diarrhea, dysuria, hematuria, frequency, urgency, lightheadedness, dizziness, abdominal pain, headache, shortness of breath, cough, congestion, fever, or any other complaints. Rest of the 14-point review of systems have been reviewed with the patient and are negative. ALLERGIES: TO IODINE. HOME MEDICATIONS: Aspirin 81 mg daily, Lipitor 40 mg daily, metoprolol extended release 50 mg p.o. b.i.d. terazosin 2 mg daily, torsemide 20 mg daily, insulin lanthanum 1000 mg p.o. with meals, Toujeo 28 units subcu at bedtime. PAST MEDICAL HISTORY: Type 2 diabetes, morbid obesity, hypertension, end-stage renal disease on dialysis, anemia of ESRD, secondary hypoparathyroidism, history of CVAs in the past, and history NE's in the past. SURGICAL HISTORY: Has cardiac stents in the past. He has AV fistulas. FAMILY HISTORY: Hypertension and diabetes. SOCIAL HISTORY: No drugs, no alcohol. Does not smoke. Good social support. He is . VITAL SIGNS: Temperature is 98.5, pulse is 76, respiratory rate is 18, blood pressure is 144/74, and pulse ox is 100% on room air. LAB FINDINGS: White count 6, hemoglobin 11.2, hematocrit 33.6, and platelets of 241. Chemistry; sodium 140, potassium 3.9, chloride 94, bicarb 30, anion gap of 19, BUN is 25, creatinine 2.6, and glucose is 219. Calcium is 10.1, AST 20, ALT 25, total bilirubin is 0.8, alk phos 123, CK 246, troponin 0.06, and albumin is 4. MICROBIOLOGY: None. IMAGING STUDIES: CT brain was negative. PHYSICAL EXAM GENERAL: Not in acute distress, alert and oriented x3, cooperative on examination. HEENT: Head normocephalic and atraumatic. Eyes: Pupils equal, round, and reactive to light bilaterally. Extraocular movements intact bilaterally. NECK: Supple. Good range of motion. Throat: No evidence of any erythema or exudates in the posterior pharynx, has poor dentition. PULMONARY: Clear to auscultation bilaterally. No wheezing, no rales, no rhonchi, and no crackles appreciated. CARDIOVASCULAR: Positive S1, S2. No murmurs, rubs, or gallop appreciated. ABDOMEN: Soft, nondistended, nontender to palpation. Bowel sounds present. MUSCULOSKELETAL: His right side upper and lower extremity weak, may be 3/5. Chief Clerk strength is weak as well. On the left side, left upper and lower extremities strength is 5/5. No evidence of any slurred speech. There is no evidence of any facial drooping. SKIN: Intact. Warm to touch. Good cap refill. PSYCHIATRIC: Normal affect and mood. EXTREMITIES: No edema. Good range of motion throughout. IMPRESSION 1. Right-sided weakness concerning for acute cerebrovascular accident versus transient ischemic attack. 2. End-stage renal disease, on hemodialysis. 3. History of coronary artery disease. 4. Type 2 diabetes. 5. Hypertension. 6. Medical noncompliance. 7. Morbid obesity. PLAN: At this time, neurology has been consulted. He will get imaging studies per neurology recommendations. She may order MRI of the brain and carotid ultrasound. I have already spoke with her and she will take care of the imaging studies. We will put him on aspirin and statin. We will get a lipid panel in the morning. In relation to this dialysis situation, we will have nephrology consulted. Patient will also get PT and OT evaluation. We will put him on insulin sliding scale, resume his Toujeo that he takes at home. Resume same antihypertensive medications at home. We discussed diet and exercise plan with the patient as well. We will hold heparin for now for DVT prophylaxis until we are able to get MRI and further imaging studies to determine the plan of care. Job#: [id number] MENDEZ
--- NOTE | 2018-03-04 19:38 | Consultation ---
DATE OF CONSULTATION: March 04, 2018 NEUROLOGY CONSULT NOTE HISTORY OF PRESENT ILLNESS: Mr. Romero is a 47-year-old left-hand dominant man with multiple vascular risk factors, admitted to [facility] on March 04, 2018 with symptoms suspicious for a stroke. Between 11:30 and 11:45 on the day of admission, the patient experienced the sudden onset of dizziness, which is further described as lightheadedness, generalized numbness, and confusion which the patient further describes as "a soggy brain." In addition to these symptoms, the patient's endorses dysarthria without aphasia and right hemiparesis. Mr. Romero does not report a visual field cut or other disturbance, aphasia, poor balance, or gait impairment. As stated above, Mr. Romero's symptoms began abruptly between 11:30 and 11:45 on the day of admission while he was receiving hemodialysis. The dialysis center contacted emergency medical service and Mr. Romero was transported to the emergency center at [facility] for further evaluation. Upon arrival in the emergency center, the patient was afebrile with a blood pressure of 159/93 mmHg and a pulse of 83 beats per minute. His neurological examination was significant for mild right hemiparesis with the arm more affected than the leg. A CT of the brain without contrast was performed, but did not show any evidence of recent large territorial ischemia or hemorrhage. Mr. Romero was admitted to [facility] for further evaluation and treatment of his symptoms. The patient does have a history of prior strokes. Residual deficits include mild expressive aphasia and cognitive impairment. Following his prior stroke, Mr. Romero was instructed to take aspirin 81 mg by mouth daily for stroke prophylaxis. The patient endorses his compliance with this medication. REVIEW OF SYSTEMS: Confusion, dysarthria, right hemiparesis, dizziness which is further described as lightheadedness. Otherwise, a 12-point review of systems is negative. PAST MEDICAL HISTORY: Hypertension; hyperlipidemia; diabetes mellitus type 2, complicated by retinopathy and neuropathy; coronary artery disease; multiple prior myocardial infarctions; end-stage renal disease, on hemodialysis Mondays, Wednesdays, and Fridays; prior history of headaches; prior transient ischemic attack; prior stroke with residual expressive aphasia and cognitive impairment; anemia of chronic disease. PAST SURGICAL HISTORY: One vessel CABG, cholecystectomy, surgery for pyloric stenosis as an , AV fistula placement in the right forearm. PAST HOSPITALIZATIONS: Surgeries/procedures as listed, myocardial infarction x6 or 7, transient ischemic attack/stroke x2 to 3, pneumonia x3, sepsis x2, multiple other hospitalizations for various diagnoses. FAMILY MEDICAL HISTORY: Hypertension, diabetes mellitus, coronary artery disease. Multiple maternal relatives have been diagnosed with lung cancer secondary to tobacco exposure. SOCIAL HISTORY: Mr. Romero is . He is on disability. The patient chewed tobacco for approximately 35 years, but quit doing this approximately 2 years ago. The patient does report occasional alcohol use. Mr. Romero does not report current or prior recreational drug use. HOME MEDICATIONS: Aspirin 81 mg by mouth daily, atorvastatin 40 mg by mouth at bedtime daily, bumetanide 2 mg by mouth twice daily, gabapentin 100 mg by mouth twice daily, metoprolol 50 mg by mouth twice daily, torsemide 20 mg by mouth daily, lanthanum carbonate 1000 mg by mouth three times daily with meals, Toujeo 28 units subcutaneously at bedtime daily, Humalog 4 units subcutaneously 3 times a day with meals and sliding scale. ALLERGIES: NO KNOWN DRUG ALLERGIES. NO KNOWN FOOD ALLERGIES. NO KNOWN ALLERGIES TO LATEX. PATIENT DOES HAVE A DOCUMENTED IODINE ALLERGY. PHYSICAL EXAMINATION VITAL SIGNS: Height 72 inches, weight 342 pounds, BMI 46.4 kg per meter squared. Blood pressure 144/74 mmHg, pulse 76 beats per minute, respiratory rate 78 breaths per minute, oxygen saturation 100% on room air. GENERAL: The patient is awake and alert, does not appear distressed. Morbidly obese. HEENT: Normocephalic, atraumatic. Pupils are equal, round, and reactive to light. Moist mucous membranes. NECK: Supple. No appreciable thyromegaly. No appreciable carotid bruits. CARDIOVASCULAR: S1 and S2, regular rate and rhythm. No murmurs, rubs, or gallops. RESPIRATORY: Clear to auscultation bilaterally. No wheezes, rhonchi, or rales. EXTREMITIES: The skin is warm and dry. No clubbing, cyanosis, or edema. The posterior tibial and dorsalis pedis pulses are 1+ and symmetric. SKIN: No rashes or lesions. NEUROLOGIC Memory/Attention: The patient is awake and alert, oriented to person, place, time, and situation. Cranial Nerves: Cranial nerve 1 - Not tested. Cranial nerve II, III, IV, and - Pupils are equal and round, react briskly to light (from 4 mm to 2 mm). Extraocular movements intact. No nystagmus. Cranial nerve V - Sensation to light touch and pinprick is intact in the bilateral V1 through V3 distributions. Strength of the temporalis and masseter muscles is within normal limits. Cranial nerve VII - The face is symmetric as are all facial movements. Strength is within normal limits. Cranial nerve VIII - Hearing is intact to finger rub bilaterally. Cranial nerve IX, X - The soft palate elevates equally and symmetrically. Cranial nerve XI - Normal strength of the bilateral sternocleidomastoid and trapezius muscles. Cranial nerve XII - The tongue protrudes midline and moves symmetrically from side to side. Strength: Bulk is normal. Strength is 5/5 in the left deltoid, biceps, triceps, wrist flexors and extensors, finger flexors and extensors, intrinsic hand muscles, hip flexors, knee flexors and extensors, ankle dorsiflexion and plantar flexion, and intrinsic foot muscles. In the right arm, flexors are 5/5 and extensors are 4/5. In the right leg, flexors are 4/5 and extensors are 5/5. Tone is normal in all 4 extremities. Deep Tendon Reflexes: The deep tendon reflexes are 1+ and symmetric at the triceps, biceps, brachioradialis, and patellas. Deep tendon reflexes are absent and symmetric at the Achilles. Plantar responses are flexor bilaterally. Sensation: Sensation is decreased to light touch and pinprick over the right arm and right leg. Cerebellar: Hthcyl-mphk-mmdkgh and heel-sigala movements are intact without dysmetria or other impairment. Gait: Gait deferred. Speech: Spontaneous speech is mildly dysarthric with mild expressive aphasia. Repetition is intact. Involuntary Movements: None. Pronator Drift: Right arm. LABORATORY DATA: The patient's comprehensive metabolic panel is significant for a chloride of 94, carbon dioxide of 30, anion gap of 19.9, creatinine of 2.68, estimated GFR 26, serum glucose of 219, and a mildly elevated globulin of 3.6. Cardiac enzymes reveal an elevated creatinine kinase 246. CK-MB is 4.80. Troponin I 0.060. The CBC with differential and platelets reveals a white blood cell count of 6.00 with a normal differential. The hemoglobin and hematocrit are 11.2 and 33.6, respectively. The platelet count is 241. DIAGNOSTIC STUDIES 1. Electrocardiogram, March 04, 2018: Normal sinus rhythm at 83 beats per minute. 2. CT of the brain without contrast, March 04, 2018: On my review, there is no evidence of recent large territorial ischemia, hemorrhage, mass, or mass effect. Cerebral volumes are appropriate for age. There are findings compatible with [id number] chronic small vessel ischemic disease. ASSESSMENT AND PLAN: Mr. Romero is a 47-year-old [id number] man with multiple vascular risk factors, admitted to [facility] on March 04, 2018 with symptoms suspicious for a left middle cerebral artery stroke, probably subcortical. On neurological examination, the patient has mild right hemiparesis as well as right hemisensory loss. The patient's laboratory data and other diagnostic studies have been reviewed and are documented above. Recommendations are follows: 1. A lipid panel and hemoglobin A1c will be ordered. 2. An MRI of the brain without contrast will be ordered. 3. An echocardiogram will be ordered. 4. Bilateral carotid artery ultrasound with Doppler will be ordered. 5. Discontinue aspirin. Mr. Romero will be prescribed Plavix 75 mg by mouth daily for stroke prophylaxis. 6. Allow permissive hypertension for the first 24 or 48 hours following a stroke. The patient's home medication of metoprolol will be held. 7. The patient's goal total cholesterol is less than 200 with a LDL of less than 70. The patient's home medication of atorvastatin 40 mg by mouth at bedtime daily will be continued. Follow up the results of the lipid panel. 8. The patient's goal hemoglobin A1c is less than 7.0. Defer treatment of the patient's diabetes mellitus to the primary service. Follow up the results of the hemoglobin A1c. 9. Speech and physical therapy consultations will be ordered. 10. GI prophylaxis with Pepcid 20 mg by mouth twice daily before meals. DVT prophylaxis with heparin 5000 units subcutaneously every 12 hours. 11. Defer treatment of the remaining medical comorbidities to the primary and other services following the patient. Thank you for this consultation. I will continue to follow the patient while he remains in the hospital. TIME SPENT: 70 minutes. Job#: [id number] NATHAN VICKERS
[2018-03-04 20:00] VITALS: BP 173/90
[2018-03-04] MEDS ORDERED: INSULIN GLARGINE SQ SCH (21:00)
[2018-03-04] MEDS: HEPARIN SOD (PORCINE) 5,000 UNIT/ML VIAL SC SCH (21:50)
[2018-03-04] MEDS: ATORVASTATIN 20 MG TAB PO SCH (21:50)
[2018-03-04] MEDS: INSULIN DETEMIR 100 UNIT/ML PEN SQ SCH (21:52)
[2018-03-05] VITALS (8 sets, daily range): BP systolic 106–150; BP diastolic 55–81
--- NOTE | 2018-03-05 03:45 | Consultation ---
DATE OF CONSULTATION: March 04, 2018 REQUESTING PHYSICIAN: Dr. Almaz Hobson REASON FOR CONSULTATION: ESRD. HISTORY OF PRESENT ILLNESS: This is a 47-year-old male who was at dialysis today, close to 4.5 to 5 liters were pulled off. During dialysis at that time somewhere along the way he noted right-sided weakness, subsequently some chest pain. Denies any trouble breathing. Denies any dyspnea. CT scan negative for bleed. Chest x-ray is clear. Hemoglobin is 11.2, potassium is adequate at 3.9, and calcium 10.1. PAST MEDICAL HISTORY: Type-2 diabetes, hypertension, obesity, secondary hyperparathyroidism, and prior history of hematuria. HOME MEDICATIONS: Aspirin 81 mg a day, Lipitor 20 mg a day, bumetanide 2 mg twice daily, insulin as directed by general medicine, lanthanum carbonate 1000 mg per meal, terazosin 1 mg daily, and torsemide 10 mg a day. SOCIAL HISTORY: Does not reveal alcohol or smoke. FAMILY HISTORY: Diabetes. REVIEW OF SYSTEMS CONSTITUTIONAL: No fever or chills. CARDIAC: Chest pain is resolved. NEURO: Right side remains weak. GI: Denying nausea or vomiting. : Continues to make minimum urine. Rest of review of systems negative. EXAMINATION VITAL SIGNS: Temperature 96.2, blood pressure 138/77, and pulse 88. HEENT: Atraumatic. NECK: No jugular venous distention. CHEST: Clear. Bilateral breath sounds equal. NEURO: Strength is decreased, perhaps 4+/5. SKIN: No ulcers, rashes, or exposed areas. Asterixis remains stable and satisfactory. Right upper extremity AV fistula. LAB DATA: Chemistries are noted. CT scan negative for bleed. ASSESSMENT 1. End-stage renal disease. 2. Presumed diabetic nephropathy. 3. Hypertensive nephrosclerosis. 4. Volume status and electrolytes satisfactory post dialysis today. 5. Probable cerebrovascular accident with right-sided weakness. 6. Chest pain of uncertain etiology, perhaps benign from the ischemia during dialysis. PLAN: From renal standpoint, no intervention. We will get back to usual dialysis schedule. Check a phosphorous level in the morning. We will follow along. Job#: [id number] RTY
[2018-03-05 06:04] LABS: BASOPHILS # (AUTO) 0.1 (0.0-0.1); BASOPHILS % 1.1 % (0.0-1.0); EOSINOPHILS # (AUTO) 0.2 (0.0-0.4); EOSINOPHILS % 4.1 % (0.0-6.0); HEMOGLOBIN 10.3 g/dL (14.0-18.0); LYMPHOCYTES # (AUTO) 1.8 (1.0-3.2); MEAN CORPUSCULAR HGB CONC 33.2 g/dL (31-35); MEAN CORPUSCULAR VOLUME 99.4 fL (81-99); MONOCYTES # (AUTO) 0.8 (0.2-0.8); MONOCYTES % 15.1 % (4.4-11.3); NEUTROPHILS # (AUTO) 2.6 (2.1-6.9); NEUTROPHILS % 46.5 % (38.7-80.0); PLATELET COUNT 201 x10e3/uL (140-360); RED BLOOD COUNT 3.12 x10e6/uL (4.3-5.7); RED CELL DISTRIBUTION WIDTH 14.9 % (11.7-14.4)
[2018-03-05 06:32] LABS: ANION GAP 18.8 mmol/L (8-16); CALCIUM 9.4 mg/dL (8.4-10.2); CREATININE, SERUM 3.8 mg/dL (0.72-1.25); POTASSIUM 3.8 mmol/L (3.5-5.1)
[2018-03-05] MEDS: LANTHANUM CARBONATE 1000 MG PO SCH ×3 (07:30→16:30)
[2018-03-05] MEDS ORDERED: INSULIN LISPRO 4 UNIT SC SCH (08:00)
[2018-03-05] MEDS: CLOPIDOGREL BISULFATE 75 MG TAB PO SCH (08:29)
[2018-03-05] MEDS: FAMOTIDINE 20 MG TAB PO SCH ×2 (08:29→17:24)
[2018-03-05] MEDS: BUMETANIDE 1 MG TAB PO SCH ×2 (08:29→17:24)
[2018-03-05] MEDS: TERAZOSIN HCL 1 MG CAP PO SCH (08:29)
[2018-03-05] MEDS: INSULIN REGULAR, HUMAN 100 UNIT/1 ML 3ML VIAL SQ SCH ×4 (08:36→21:30)
[2018-03-05] MEDS: INSULIN LISPRO 100 UNIT/1 ML 3ML VIAL SQ SCH ×3 (08:40→17:25)
[2018-03-05] MEDS: HEPARIN SOD (PORCINE) 5,000 UNIT/ML VIAL SC SCH ×2 (08:40→21:20)
[2018-03-05] MEDS ORDERED: NON-FORMULARY MEDICATION (Bumetanide 2 MG) PO SCH (09:00)
[2018-03-05] MEDS ORDERED: ASPIRIN 81 MG ENTERIC COATED PO SCH (09:00)
[2018-03-05] MEDS ORDERED: METOPROLOL SUCCINATE 50 MG TAB XL PO SCH (09:00)
[2018-03-05] MEDS ORDERED: TORSEMIDE 10 MG TAB PO SCH (09:00)
[2018-03-05] MEDS ORDERED: ATORVASTATIN 20 MG TAB PO SCH (09:00)
[2018-03-05 11:31] LABS: AMPHETAMINES SCREEN,URINE NEGATIVE (NEGATIVE); BENZODIAZEPINES SCREEN,URINE NEGATIVE (NEGATIVE); CLARITY,URINE HAZY (CLEAR); COLOR,URINE YELLOW (YELLOW); LEUKOCYTE ESTERASE ,URINE NEGATIVE (NEGATIVE); NITRITE,URINE NEGATIVE (NEGATIVE); PHENCYCLIDINE SCREEN,URINE NEGATIVE (NEGATIVE); PROTEIN,URINE DIPSTICK 2+ (NEGATIVE); URINE UROBILINOGEN 0.2 mg/dL (0.2 - 1)
[2018-03-05 11:32] LABS: BILIRUBIN,URINE NEGATIVE (NEGATIVE); KETONES,URINE TRACE (NEGATIVE)
[2018-03-05 11:47] LABS: BACTERIA,URINE FEW /HPF; EPITHELIAL CELLS,URINE MANY /LPF; MUCUS,URINE FEW (RARE); RBC,URINE 0-5 /HPF (0-5)
--- NOTE | 2018-03-05 13:00 | Progress Note ---
DATE: March 05, 2018 SUBJECTIVE: Patient reports doing much better today with no complaints. We are awaiting on several imaging studies including his MRI of the brain. Patient reports no other issues at this time. Denies any chest pain or palpitations. Denies any vomiting or any weakness at this time. OBJECTIVE VITAL SIGNS: Temperature is 98,1, pulse 83, respiratory rate is 20, blood pressure 150/67, and pulse ox 98% on room air. LAB FINDINGS: Show white count is 5.5, hemoglobin 10.3, hematocrit 31, platelets of 201. Chemistries; sodium 138, potassium 3.8, chloride 95, bicarb 28, anion gap of 18, BUN is 35, creatinine 6.8, glucose is 9, phosphorus is 4.2, calcium 9.4. Urinalysis seemed to be negative, urine wbc's 6-10. Toxicology screen, urine drug screen was found to be negative. MICROBIOLOGY: None. IMAGING STUDIES: CT brain was negative. Pending MRI of the brain, carotid ultrasound, and echo. PHYSICAL EXAMINATION GENERAL: Not in acute distress. Alert and oriented x3, cooperative on examination. HEENT: Head normocephalic, atraumatic. Eyes; pupils are equal, round and reactive to light bilaterally. Extraocular movements are intact bilaterally. NECK: Supple with good range of motion. THROAT: No evidence of any erythema or exudates in the posterior pharynx. Has poor dentition. PULMONARY: Clear to auscultation bilaterally. No wheezing, no rales, no rhonchi, no crackles appreciated. CARDIOVASCULAR: Positive S1 and S2. No murmurs, rubs or gallops appreciated. ABDOMEN: Soft, nondistended, nontender to palpation. Bowel sounds present. MUSCULOSKELETAL: Strength is 5/5 throughout. No evidence of any musculoskeletal deficit on examination. No weakness appreciated. NEUROLOGICAL: Cranial nerves II through XII are grossly intact. No evidence of any neurological deficit on exam. SKIN: Intact. Warm to touch. Good capillary refill. PSYCHIATRIC: Normal affect and mood. EXTREMITIES: No edema. Good range of motion throughout. IMPRESSION 1. Right-sided weakness, concerning for acute cerebrovascular accident versus transient ischemic attack. 2. End-stage renal disease, on dialysis. 3. History of coronary artery disease. 4. Type 2 diabetes. 5. Hypertension. 6. Medical noncompliance. 7. Morbidly obese. PLAN: At this time, MRI of the brain, carotid ultrasound, and 2D echo are pending. Neurology is following. Cardiology was consulted. Nephrology consulted for dialysis on Wednesday. He is currently doing much better today. We are going to resume same home medications. Continue with statin and aspirin. Encourage ambulation with PT and OT. Job#: [id number] NIYAH
[2018-03-05] MEDS: ATORVASTATIN 20 MG TAB PO SCH (21:43)
[2018-03-05] MEDS: FENOFIBRATE 145 MG TAB PO SCH (21:43)
[2018-03-05] MEDS: INSULIN DETEMIR 100 UNIT/ML PEN SQ SCH (21:46)
[2018-03-06] VITALS (9 sets, daily range): BP systolic 122–176; BP diastolic 64–88
[2018-03-06] MEDS: LANTHANUM CARBONATE 1000 MG PO SCH (07:30)
[2018-03-06] MEDS: HEPARIN SOD (PORCINE) 5,000 UNIT/ML VIAL SC SCH ×2 (08:41→21:30)
[2018-03-06] MEDS: INSULIN LISPRO 100 UNIT/1 ML 3ML VIAL SQ SCH ×3 (08:41→17:20)
[2018-03-06] MEDS: BUMETANIDE 1 MG TAB PO SCH ×2 (08:41→17:19)
[2018-03-06] MEDS: CLOPIDOGREL BISULFATE 75 MG TAB PO SCH (08:41)
[2018-03-06] MEDS: FAMOTIDINE 20 MG TAB PO SCH ×2 (08:41→17:19)
[2018-03-06] MEDS: INSULIN REGULAR, HUMAN 100 UNIT/1 ML 3ML VIAL SQ SCH ×4 (08:41→21:10)
[2018-03-06] MEDS: TERAZOSIN HCL 1 MG CAP PO SCH (08:41)
[2018-03-06] MEDS: SEVELAMER CARBONATE 800 MG TAB PO SCH ×2 (12:27→17:19)
[2018-03-06] MEDS: METOPROLOL SUCCINATE 50 MG TAB XL PO SCH ×2 (12:27→17:33)
--- NOTE | 2018-03-06 14:25 | Progress Note ---
DATE: March 06, 2018 SUBJECTIVE: Patient is doing well today with no other complaints. He is scheduled for RICARDO tomorrow by cardiology. Dr. Holder will be back tomorrow, which he will follow with, that is his primary care physician. VITAL SIGNS: Temperature is 97.5, pulse 87, respiratory rate is 18, blood pressure 157/80, pulse ox 98% on room air. LAB FINDINGS: Show white count is 5.5, hemoglobin 10.3, hematocrit is 31, platelets of 201. Coagulation; PTT 27. Chemistries; none. Urinalysis; none. Urine drug screen negative. MICROBIOLOGY: None. IMAGING STUDIES: Carotid ultrasound shows no evidence of carotid stenosis and on echo, EF of 70% to 75%. PHYSICAL EXAMINATION GENERAL: Not in acute distress, alert and oriented x3, cooperative on examination. HEENT: Head normocephalic, atraumatic. Eyes: Pupils are equal, round and reactive to light bilaterally. Extraocular movements are intact bilaterally. NECK: Supple with good range of motion. THROAT: No evidence of erythema or exudates in the posterior pharynx, has poor dentition. PULMONARY: Clear to auscultation bilaterally. No wheezing, no rales, no rhonchi, no crackles appreciated. CARDIOVASCULAR: Positive S1 and S2. No murmurs, rubs, or gallops appreciated. ABDOMEN: Soft, nondistended, nontender to palpation. Bowel sounds present. MUSCULOSKELETAL: Strength is 5/5 throughout. No evidence of any musculoskeletal deficit on examination. No weakness appreciated. NEUROLOGIC: Cranial nerves II through XII grossly intact. No evidence of neurological deficit on exam. SKIN: Intact. Warm to touch. Good capillary refill. PSYCHIATRIC: Normal affect and mood. EXTREMITIES: No edema. Good range of motion throughout. IMPRESSION 1. Right-sided weakness, concerning for acute cerebrovascular accident versus transient ischemic attack. 2. End-stage renal disease, on hemodialysis, Wednesday, Wednesday, and Wednesday. 3. History of coronary artery disease. 4. Type 2 diabetes. 5. Hypertension. 6. Medical noncompliance. 7. Morbidly obese. PLAN: At this time, we are unable to perform MRI of the brain as the patient is morbidly obese. Carotid ultrasound was found to be negative. A 2D echo showed an EF of 70% to 75%. Patient is scheduled for a RICARDO tomorrow per cardiology. Neurology and cardiology are following. Patient will receive HD tomorrow by the criminal investigator service that has been consulted. Continue with PT and OT. Patient will follow with Dr. Holder tomorrow, which he will be back to see his primary patients. Job#: [id number] NIYAH
--- NOTE | 2018-03-06 16:13 | Progress Note ---
DATE: March 06, 2018 CARDIOLOGY PROGRESS NOTE SUBJECTIVE: No major events overnight. No more chest pain or right-sided weakness. OBJECTIVE VITAL SIGNS: Temperature 97.5, pulse 87, respiratory rate 18, blood pressure 157/80, satting 97% on room air. GENERAL: Obese white man in no acute distress. CARDIOVASCULAR: Regular rate and rhythm. No murmurs, rubs or gallops. LUNGS: Clear to auscultation bilaterally. ABDOMEN: Obese, soft, nontender, nondistended. NEURO AND PSYCH: Alert and oriented to person, place, and time. Normal affect. LABORATORY DATA: Reviewed. MEDICATIONS: Reviewed. IMAGING DATA: Reviewed. ASSESSMENT 1. Cerebrovascular accident. 2. Atypical chest pain. PLAN: We will plan for transesophageal echocardiogram tomorrow given cryptogenic stroke in this young man. Continue current cardiovascular medications otherwise. Thank you for this consult. We will continue to follow. Job#: [id number] MARTIN
[2018-03-06] MEDS: FENOFIBRATE 145 MG TAB PO SCH (21:08)
[2018-03-06] MEDS: ATORVASTATIN 20 MG TAB PO SCH (21:08)
[2018-03-06] MEDS: INSULIN DETEMIR 100 UNIT/ML PEN SQ SCH (21:11)
[2018-03-07 04:10] VITALS: BP 130/71
[2018-03-07 05:08] LABS: BASOPHILS % 0.7 % (0.0-1.0); EOSINOPHILS # (AUTO) 0.2 (0.0-0.4); HEMATOCRIT 31.5 % (38.2-49.6); HEMOGLOBIN 10.6 g/dL (14.0-18.0); LYMPHOCYTES % 33.4 % (18.0-39.1); MEAN CORPUSCULAR HEMOGLOBIN 32.8 pg (28-32); MEAN CORPUSCULAR HGB CONC 33.7 g/dL (31-35); MEAN CORPUSCULAR VOLUME 97.5 fL (81-99); MONOCYTES # (AUTO) 0.9 (0.2-0.8); MONOCYTES % 14.7 % (4.4-11.3); NEUTROPHILS # (AUTO) 2.8 (2.1-6.9); PLATELET COUNT 228 x10e3/uL (140-360); RED BLOOD COUNT 3.23 x10e6/uL (4.3-5.7); RED CELL DISTRIBUTION WIDTH 14.7 % (11.7-14.4)
[2018-03-07 05:27] LABS: ALBUMIN 3.4 g/dL (3.5-5.0); ALBUMIN/GLOBULIN RATIO 1.2 (0.8-2.0); ANION GAP 19.6 mmol/L (8-16); CALCIUM 9.6 mg/dL (8.4-10.2); CREATININE, SERUM 5.53 mg/dL (0.72-1.25); POTASSIUM 3.6 mmol/L (3.5-5.1)
[2018-03-07 05:39] LABS: INR 0.82; PROTHROMBIN TIME 12.1 seconds (11.9-14.5)
[2018-03-07] MEDS: FAMOTIDINE 20 MG TAB PO SCH ×2 (07:30→17:15)
[2018-03-07] MEDS: INSULIN REGULAR, HUMAN 100 UNIT/1 ML 3ML VIAL SQ SCH ×4 (07:30→21:00)
[2018-03-07 07:50] VITALS: BP 139/60
[2018-03-07] MEDS: SEVELAMER CARBONATE 800 MG TAB PO SCH ×3 (08:00→17:15)
[2018-03-07] MEDS: INSULIN LISPRO 100 UNIT/1 ML 3ML VIAL SQ SCH ×3 (08:00→17:16)
[2018-03-07] MEDS: TERAZOSIN HCL 1 MG CAP PO SCH (09:00)
[2018-03-07] MEDS: CLOPIDOGREL BISULFATE 75 MG TAB PO SCH (09:00)
[2018-03-07] MEDS: HEPARIN SOD (PORCINE) 5,000 UNIT/ML VIAL SC SCH ×2 (09:00→20:57)
[2018-03-07] MEDS ORDERED: TORSEMIDE 10 MG TAB PO SCH (09:00)
[2018-03-07] MEDS: BUMETANIDE 1 MG TAB PO SCH ×2 (09:00→17:00)
[2018-03-07] MEDS: METOPROLOL SUCCINATE 50 MG TAB XL PO SCH ×2 (09:00→17:00)
[2018-03-07 09:20] VITALS: BP 139/60
[2018-03-07 12:13] VITALS: BP 160/65
[2018-03-07] MEDS ORDERED: SODIUM CHLORIDE 0.9% 1000ML 2,000 ML ONE (14:07)
[2018-03-07] MEDS ORDERED: RENVELA800 MG PO (14:18)
[2018-03-07] MEDS ORDERED: FENOFIBRATE145 MG PO (14:18)
[2018-03-07] MEDS ORDERED: PLAVIX75 MG PO (14:18)
[2018-03-07] MEDS ORDERED: FAMOTIDINE20 MG PO (14:18)
[2018-03-07] MEDS ORDERED: SODIUM CHLORIDE 0.9% 1000ML 2,000 ML IV PRN (14:30)
--- NOTE | 2018-03-07 15:09 | Discharge Summary ---
PRINCIPAL DIAGNOSES 1. Right hemiparesis. 2. Probable acute ischemic stroke with negative CT imaging. 3. Medication noncompliance. 4. Morbid obesity. 5. Diabetes mellitus, type 2. Glycosylated hemoglobin 9.8, low-density lipoprotein and triglycerides are 60 and 236 respectively. 6. Normal carotid arteries. 7. Normal transthoracic echocardiogram with transesophageal echocardiogram pending outpatient. 8. Normal left ventricular ejection fraction. SECONDARY DIAGNOSIS: End-stage renal disease on dialysis. CHIEF COMPLAINT: Right-sided weakness. HISTORY OF PRESENT ILLNESS: This is a 47-year-old man with right-sided weakness. Please refer to the H and P for further details. HOSPITAL COURSE: The patient was found to have right-sided weakness. CT scan of the head was negative. Unable to get an MRI due to the patient's body habitus. Neurology and cardiology assisted in management. The patient underwent transthoracic echocardiogram which showed normal left ventricular ejection fraction. No significant abnormality was noted. The patient was recommended for transesophageal echocardiogram, which will be done outpatient. The patient's medications have been optimized. He is on a statin, fibrate, beta jamie, aspirin, Plavix and other medication regimen. He is doing better. The strength in his right side is improving. He is currently appropriate for discharge after dialysis. DISCHARGE MEDICATIONS: Per electronic medical record and include atorvastatin, fenofibrate, Plavix, aspirin and other medications. FOLLOWUP 1. With me in 1 week. 2. Follow up with cardiology in 1 week. 3. Follow up with nephrology as directed. 4. Follow up with neurology in 10 days. JAYY PEÑALOZA MD Job#: [id number]
[2018-03-07 17:32] VITALS: BP 154/81
[2018-03-07 20:00] VITALS: BP 180/93
[2018-03-07] MEDS: FENOFIBRATE 145 MG TAB PO SCH (20:57)
[2018-03-07] MEDS: INSULIN DETEMIR 100 UNIT/ML PEN SQ SCH (21:00)
[2018-03-07] MEDS ORDERED: ATORVASTATIN 40 MG TAB PO SCH (21:00)
[2018-03-14] MEDS ORDERED: GABAPENTIN100 MG PO (17:03)
[2018-03-14] MEDS ORDERED: METOPROLOL TART50 MG PO (17:03)
== END 2018-03-08 01:00 | disposition home or self-care (01) | DRG 64 ==
LOC: ER 12:36 → ERHOLD 15:34 → MED/SURG 17:18 → OBSVTOIN 03-06 12:50
PROVIDERS: ADMIT Internal Medicine; ATTEND Internal Medicine
PROC: 5A1D70Z Performance of Urinary Filtration, Intermittent, Less than 6 Hours Per Day (ICD-10-PCS; principal; 2018-03-07)
DX: I63.512 Cerebral infarction due to unspecified occlusion or stenosis of left middle cerebral artery (principal); N18.6 End stage renal disease; G81.91 Hemiplegia, unspecified affecting right dominant side; I12.0 Hypertensive chronic kidney disease with stage 5 chronic kidney disease or end stage renal disease; Z68.42 Body mass index [BMI] 45.0-49.9, adult; E11.22 Type 2 diabetes mellitus with diabetic chronic kidney disease; Z99.2 Dependence on renal dialysis; Z91.19 Patient's noncompliance with other medical treatment and regimen; E66.01 Morbid (severe) obesity due to excess calories; D63.1 Anemia in chronic kidney disease; R07.9 Chest pain, unspecified; E11.21 Type 2 diabetes mellitus with diabetic nephropathy; I25.2 Old myocardial infarction; Z95.5 Presence of coronary angioplasty implant and graft; E78.5 Hyperlipidemia, unspecified; R07.89 Other chest pain; Z79.4 Long term (current) use of insulin
CPT/HCPCS: 36415; 70450; 80048; 80053; 80061; 80307; 81001; 82550; 82553; 82948; 83036; 84100; 84484; 85025; 85610; 85730; 86704; 86705; 86706; 87340; 90962; 92523; 93005; 93306; 93880; 99284; G0378; J0360; J1644; J7030

== ENCOUNTER → 2018-03-15 | Day surgery (SDC) | payer BC, MEDICARE ==
[2018-03-14 16:58] LABS: BASOPHILS # (AUTO) 0.1 (0.0-0.1); BASOPHILS % 0.9 % (0.0-1.0); EOSINOPHILS # (AUTO) 0.2 (0.0-0.4); EOSINOPHILS % 1.8 % (0.0-6.0); HEMOGLOBIN 12.6 g/dL (14.0-18.0); LYMPHOCYTES # (AUTO) 1.9 (1.0-3.2); LYMPHOCYTES % 21.2 % (18.0-39.1); MEAN CORPUSCULAR HEMOGLOBIN 34.1 pg (28-32); MEAN CORPUSCULAR HGB CONC 33.2 g/dL (31-35); MONOCYTES # (AUTO) 0.8 (0.2-0.8); MONOCYTES % 9.1 % (4.4-11.3); NEUTROPHILS # (AUTO) 5.9 (2.1-6.9); NEUTROPHILS % 66.4 % (38.7-80.0); PLATELET COUNT 236 x10e3/uL (140-360); RED BLOOD COUNT 3.69 x10e6/uL (4.3-5.7); RED CELL DISTRIBUTION WIDTH 15.3 % (11.7-14.4)
[2018-03-14 17:09] LABS: INR 0.8; PROTHROMBIN TIME 11.9 seconds (11.9-14.5)
[2018-03-14 17:18] LABS: ALBUMIN 4.1 g/dL (3.5-5.0); ANION GAP 19.5 mmol/L (8-16); CALCIUM 9.6 mg/dL (8.4-10.2); CREATININE, SERUM 4.1 mg/dL (0.72-1.25); POTASSIUM 4.5 mmol/L (3.5-5.1)
[2018-03-15] VITALS (8 sets, daily range): BP systolic 98–178; BP diastolic 50–87
[~2018-03-15] VITALS: Ht 365.8 cm; Wt 155.6 kg
[~2018-03-15] MED LIST changes: +ASPIRIN EC81 MG PO; +BUMETANIDE2 MG PO; +FAMOTIDINE20 MG PO; +FENOFIBRATE145 MG PO; +FENTANYL CITRATE/PF 100MCG/2 ML INJ ONE; +FOSRENOL1000 MG PO; +GABAPENTIN100 MG PO; +HUMALOG100 UNIT/1 SC; +INSULIN REGULAR, HUMAN 100 UNIT/1 ML 3ML VIAL ONE; +METOPROLOL SUCC50 MG PO; +MIDAZOLAM HCL 2 MG/2 ML VIAL ONE; +PLAVIX75 MG PO; +PROPOFOL IV EMULSION 10 MG/ML 20 ML VIAL ONE; +RENVELA800 MG PO; +TOUJEO SQ
--- OUTSIDE RECORDS SUMMARY | 2018-03-15 06:48 | XMS REPORT | Clinical Summary ---
Author Author MUKESH [facility] Address Unknown Phone Unavailable Care Team Providers Care Shader And Toner Name Role Phone MariahTito brito Jorge 3 Lloyd Holder PCP Mariah Titowalter Patel 9 Allergies Comments Active Allergy Reactions Severity Noted Date Iodine And Iodide Anaphylaxis High 02/28/2013 Containing Products Medications End Date Status Medication Sig Dispensed Refills Start Date Active atorvastatin (LIPITOR) 40 Take 40 mg by 0 MG tablet mouth daily. Active torsemide (DEMADEX) 20 MG Take 20 mg by 0 tablet mouth daily. Active nitroglycerin (NITROSTAT) Place 0.3 mg 0 0.3 MG SL tablet under the tongue every 5 (five) minutes as needed for Chest pain Put 1 pill under tongue every 5min as needed for chest pain.No more than 3 doses in 15min.Call 911 if pain is unrelieved 5min after 1st dose . Active terazosin (HYTRIN) 2 MG Take 2 mg by 0 capsule mouth nightly. Active bumetanide (BUMEX) 2 MG Take 2 mg by 0 tablet mouth 2 (two) times daily. Active sevelamer (RENVELA) 800 Take 2,400 mg 0 mg tablet by mouth 3 (three) times daily with meals . Active INSULIN Inject 28 0 GLARGINE,HUM.REC.ANLOG Units (TOUJEO SOLOSTAR SUBQ) subcutaneousl y every evening . Active insulin lispro (HUMALOG) Inject 4 0 100 unit/mL injection Units subcutaneousl y 3 (three) times daily before meals. Active hydroCHLOROthiazide Take 25 mg by 0 (HYDRODIURIL) 25 MG mouth daily. tablet 04/25/2018 Active aspirin 81 MG chewable Take 1 tablet 30 tablet 2 tablet (81 mg total) 7 by mouth daily. Active metoprolol (LOPRESSOR) Take 0.5 60 tablet 0 100 MG tablet tablets (50 7 mg total) by mouth 2 (two) times daily. Active miscellaneous medical 3 in 1 1 each 0 supply Misc toilet. 7 04/25/2017 Discontinued metoprolol (LOPRESSOR) Take 100 mg 0 100 MG tablet by mouth 2 (two) times daily. 04/13/2017 Discontinued sodium bicarbonate 325 MG Take 650 mg 0 tablet by mouth 2 (two) times daily . 04/13/2017 Discontinued docusate sodium (COLACE) Take 100 mg 0 100 MG capsule by mouth 2 (two) times daily as needed for Constipation. 04/13/2017 Discontinued ferrous sulfate 325 (65 Take 325 mg 0 FE) MG tablet by mouth daily with breakfast. 04/13/2017 Discontinued lisinopril Take 30 mg by 0 (PRINIVIL,ZESTRIL) 30 MG mouth daily. tablet 04/25/2017 Discontinued NIFEdipine (ADALAT CC) 30 Take 30 mg by 0 MG 24 hr tablet mouth 2 (two) times daily. 05/05/2017 oxyCODONE-acetaminophen Take 1 tablet 30 tablet 0 (PERCOCET) 10-325 mg per by mouth 7 tablet every 4 (four) hours as needed for up to 10 days. Max Daily Amount: 6 tablets Active Problems Patient Care Coordination Note Endocrinology- Christine Rodriguez [phone] Multiskill Operator- Petr Betancur [phone] Neurologist- Huong Lobo- [phone] Vscular Surgeon- Rafael Lebron [phone] Problem Noted Date CAD (coronary artery disease) 04/22/2017 Acute pulmonary insufficiency following thoracic surgery 04/22/2017 Acute blood loss anemia 04/22/2017 ESRD (end stage renal disease) on dialysis 02/02/2017 Last Assessment & Plan: On HD via LUE AVF Diabetes 02/02/2017 Last Assessment & Plan: On insulin, A1c 6.9% Syncope 03/01/2013 Last Assessment & Plan: No hx of syncope for last few years TIA (transient ischemic attack) 03/01/2013 Last Assessment & Plan: No TIA for last few years. Encounters Care Team Description Date Type Specialty Ene Owen Appointment 11/29/2017 Telephone Transplant Vale Molina RN Kidney Transplant Pre-evaluation 09/20/2017 Telephone Transplant Bay Pina MD BYPASS,CORONARY LIMITED ACCESS 04/22/2017 Surgery Bay Pina MD Acute pulmonary insufficiency following thoracic surgery (HCC) 04/22/2017 Hospital Cardiology - Encounter 04/25/2017 Baljit Adames MD 04/21/2017 Anesthesia Event Bay Pina MD 04/20/2017 Hospital Cardiology Encounter Bay Pina MD 04/20/2017 Hospital Encounter Bay Pina MD 04/20/2017 Hospital Pre-Admission Testing Encounter Sharon Pina NP 04/20/2017 Orders Only Cardiology Terrence Le MD L CATH & CORONARY ANGIOS 04/13/2017 Surgery Terrence Le MD ESRD (end stage renal disease) ([facility]); Pre-transplant evaluation for ESRD (end stage renal disease) 04/13/2017 Hospital Encounter 04/13/2017 Orders Only General Internal Medicine after 03/14/2017 Family History Medical History Relation Name Comments No Known Problem Brother Cleft palate Daughter Diabetes Father Hyperlipidemia Father Hypertension Father Kidney disease Father Heart disease Maternal Grandfather Heart disease Maternal 4 uncles Uncle Hypertension Maternal 4 uncles Uncle Heart disease Mother Relation Name Status Comments Brother Alive Daughter Alive Father Alive Maternal Grandfather Maternal Uncle 4 uncles Alive Mother Social History Date Tobacco Use Types Packs/Day Years Used Never Smoker Smokeless Tobacco: Former Quit: 07/14/2016 User Tobacco Cessation: Ready to Quit: No Alcohol Use Drinks/Week oz/Week Comments Yes 4 Cans of 2.4 occassional beer Sex Assigned at Date Recorded Not on file Industry Job Start Date Occupation Not on file Not on file Not on file Travel End Travel History Travel Start No recent travel history available. Last Filed Vital Signs Time Taken Vital Sign Reading 04/25/2017 7:25 AM BOX BRANDER Blood Pressure 137/73 04/25/2017 7:25 AM BOX BRANDER Pulse 76 04/25/2017 7:25 AM BOX BRANDER Temperature 36.9 C (98.5 F) 04/25/2017 7:25 AM BOX BRANDER Respiratory Rate 18 04/25/2017 7:25 AM BOX BRANDER Oxygen Saturation 97% 04/22/2017 5:00 PM BOX BRANDER Inhaled Oxygen 40% Concentration 04/25/2017 4:00 AM BOX BRANDER Weight 142.6 kg (314 lb 6.4 oz) 04/22/2017 10:00 AM BOX BRANDER Height 182.9 cm (6') 04/25/2017 4:00 AM BOX BRANDER Body Mass Index 42.64 Plan of Treatment Health Maintenance Due Date Last Done Comments INFLUENZA VACCINE 02/14/2018 Implants Device Identifier Shelf Expiration Date Model / Serial / Lot Implanted Type Area Manufactur er 01/14/2022 [id number] / NONE / [id number] Sut Surg Stl 7 18g 18in Mls Mp [place]/Art N/A: Sternum J [id number] - Snone hroscopy &J:ETHICON Implanted: Qty: 3 on 04/22/2017 by Bay Pina MD Procedures Comments Procedure Name Priority Date/Time Associated Diagnosis RHYTHM STRIP - SCAN 05/04/2017 12:50 PM BOX BRANDER RHYTHM STRIP - SCAN 04/27/2017 1:20 PM BOX BRANDER POCT-GLUCOSE METER Routine 04/25/2017 7:29 AM BOX BRANDER CBC W/PLT COUNT & AUTO Routine 04/25/2017 DIFFERENTIAL 4:13 AM BOX BRANDER CBC W/PLT COUNT & AUTO Routine 04/25/2017 DIFFERENTIAL 4:13 AM BOX BRANDER BASIC METABOLIC PANEL (7) Routine 04/25/2017 4:13 AM BOX BRANDER POCT-GLUCOSE METER Routine 04/24/2017 10:11 PM BOX BRANDER POCT-GLUCOSE METER Routine 04/24/2017 5:06 PM BOX BRANDER POCT-GLUCOSE METER Routine 04/24/2017 12:19 PM BOX BRANDER POCT-GLUCOSE METER Routine 04/24/2017 8:24 AM BOX BRANDER XR CHEST 1 VIEW Routine 04/24/2017 PORTABLE/BEDSIDE 6:09 AM BOX BRANDER CBC W/PLT COUNT & AUTO Routine 04/24/2017 DIFFERENTIAL 5:35 AM BOX BRANDER CBC W/PLT COUNT & AUTO Routine 04/24/2017 DIFFERENTIAL 5:35 AM BOX BRANDER BASIC METABOLIC PANEL (7) Routine 04/24/2017 5:35 AM BOX BRANDER POCT-GLUCOSE METER Routine 04/23/2017 11:57 PM BOX BRANDER HEPATITIS B SURFACE Routine 04/23/2017 ANTIGEN 11:56 PM BOX BRANDER HEPATITIS B SURFACE ADITYA 04/23/2017 ANTIGEN 8:26 PM BOX BRANDER POCT-GLUCOSE METER Routine 04/23/2017 4:25 PM BOX BRANDER POCT-GLUCOSE METER Routine 04/23/2017 1:38 PM BOX BRANDER POCT-GLUCOSE METER Routine 04/23/2017 12:01 PM BOX BRANDER XR CHEST 1 VIEW ADITYA 04/23/2017 PORTABLE/BEDSIDE 8:23 AM BOX BRANDER POCT-GLUCOSE METER Routine 04/23/2017 7:55 AM BOX BRANDER CBC W/PLT COUNT & AUTO Routine 04/23/2017 DIFFERENTIAL 3:18 AM BOX BRANDER CBC W/PLT COUNT & AUTO Routine 04/23/2017 DIFFERENTIAL 3:18 AM BOX [facility]ANDER MAGNESIUM Routine 04/23/2017 3:18 AM BOX BRANDER PHOSPHORUS Routine 04/23/2017 3:18 AM BOX BRANDER BASIC METABOLIC PANEL (7) Routine 04/23/2017 3:18 AM BOX BRANDER POCT-GLUCOSE METER Routine 04/23/2017 3:16 AM BOX BRANDER POCT-GLUCOSE METER Routine 04/22/2017 11:35 PM BOX BRANDER POCT-GLUCOSE METER Routine 04/22/2017 6:39 PM BOX BRANDER POCT-GLUCOSE METER Routine 04/22/2017 5:29 PM BOX BRANDER XR CHEST 1 VIEW STAT 04/22/2017 PORTABLE/BEDSIDE 4:37 PM BOX BRANDER ANESTHESIA RICARDO Routine 04/22/2017 4:03 PM BOX BRANDER POTASSIUM STAT 04/22/2017 3:54 PM BOX BRANDER GLUCOSE STAT 04/22/2017 3:54 PM BOX BRANDER HGB/HCT (H&H) - STAT LAB STAT 04/22/2017 3:54 PM BOX BRANDER GLUCOSE-STAT LAB STAT 04/22/2017 3:54 PM BOX BRANDER POTASSIUM-STAT LAB STAT 04/22/2017 3:54 PM BOX BRANDER SODIUM NA-STAT LAB STAT 04/22/2017 3:54 PM BOX BRANDER BLOOD GAS, ARTERIAL STAT 04/22/2017 3:54 PM BOX BRANDER LACTIC ACID, ARTERIAL, STAT 04/22/2017 WHOLE BLOOD 3:54 PM BOX BRANDER BASIC METABOLIC PANEL (7) STAT 04/22/2017 3:54 PM BOX BRANDER CBC (HEMOGRAM ONLY) STAT 04/22/2017 3:54 PM BOX BRANDER OXYGEN SATURATION, STAT 04/22/2017 MEASURED 3:54 PM BOX BRANDER CALCIUM, IONIZED STAT 04/22/2017 3:54 PM BOX BRANDER RRL CRITICAL LABS STAT 04/22/2017 (ABG,NA,K,H&H,GLUCOSE) 3:54 PM BOX BRANDER POCT-ACT Routine 04/22/2017 2:47 PM BOX BRANDER POCT-ACT Routine 04/22/2017 2:28 PM BOX BRANDER POCT-ACT Routine 04/22/2017 1:53 PM BOX BRANDER HGB/HCT (H&H) - STAT LAB STAT 04/22/2017 1:50 PM BOX BRANDER GLUCOSE-STAT LAB STAT 04/22/2017 1:50 PM BOX BRANDER POTASSIUM-STAT LAB STAT 04/22/2017 1:50 PM BOX BRANDER SODIUM NA-STAT LAB STAT 04/22/2017 1:50 PM BOX BRANDER BLOOD GAS, ARTERIAL STAT 04/22/2017 1:50 PM BOX BRANDER CALCIUM, IONIZED STAT 04/22/2017 1:50 PM BOX BRANDER RRL CRITICAL LABS STAT 04/22/2017 (ABG,NA,K,H&H,GLUCOSE) 1:50 PM BOX BRANDER HGB/HCT (H&H) - STAT LAB STAT 04/22/2017 11:43 AM BOX BRANDER GLUCOSE-STAT LAB STAT 04/22/2017 11:43 AM BOX BRANDER POTASSIUM-STAT LAB STAT 04/22/2017 11:43 AM BOX BRANDER SODIUM NA-STAT LAB STAT 04/22/2017 11:43 AM BOX BRANDER BLOOD GAS, ARTERIAL STAT 04/22/2017 11:43 AM BOX BRANDER RRL CRITICAL LABS STAT 04/22/2017 (ABG,NA,K,H&H,GLUCOSE) 11:43 AM BOX BRANDER STERNOTOMY 04/22/2017 CVD (cardiovascular 10:30 AM BOX BRANDER disease) Case Notes MINIMALLY INVASIVE CORONARY BYPASS, LEFT INTERNAL MAMMORY ARTERY TO LEFT ANTERIOR DESCENDING ARTERY Special Needs (REQ TF) BYPASS,CORONARY LIMITED 04/22/2017 CVD (cardiovascular ACCESS 10:30 AM BOX BRANDER disease) Case Notes MINIMALLY INVASIVE CORONARY BYPASS, LEFT INTERNAL MAMMORY ARTERY TO LEFT ANTERIOR DESCENDING ARTERY Special Needs (REQ TF) TRANSFUSION SERVICE 04/21/2017 REPORT - SCAN 6:08 PM BOX BRANDER VASCULAR DIAGRAM -SCAN 04/21/2017 2:22 PM BOX BRANDER VASCULAR DIAGRAM -SCAN 04/21/2017 2:22 PM BOX BRANDER XR CHEST 2 VIEWS Routine 04/20/2017 3:21 PM BOX BRANDER CBC W/PLT COUNT & AUTO Routine 04/20/2017 DIFFERENTIAL 3:03 PM BOX BRANDER CBC W/PLT COUNT & AUTO Routine 04/20/2017 DIFFERENTIAL 3:03 PM BOX BRANDER BASIC METABOLIC PANEL (7) Routine 04/20/2017 3:03 PM BOX BRANDER TYPE AND SCREEN, Routine 04/20/2017 AUTOMATED 3:02 PM BOX BRANDER PROTHROMBIN TIME/INR Routine 04/20/2017 3:02 PM BOX BRANDER APTT Routine 04/20/2017 3:02 PM BOX BRANDER URINALYSIS W/ MICROSCOPIC Routine 04/20/2017 3:01 PM BOX BRANDER ECG 12-LEAD Routine 04/20/2017 3:00 PM BOX BRANDER Procedure Note - Interface, External Ris In - 04/20/2017 5:49 PM BOX BRANDER Ventricula r Rate 70 BPM Atrial Rate 70 BPM P-R Interval 214 ms QRS Duration 114 ms Q-T Interval 432 ms QTC Calculatio n(Bazett) 466 ms P [place] 72 degrees R [place] 7 degrees T [place] 83 degrees Sinus rhythm with 1st degree A-V block Otherwise normal ECG When compared with ECG of 7 12:35, No significan t change was found ECG 12-LEAD Routine 04/20/2017 3:00 PM BOX BRANDER CARDIAC CATH REPORT - 04/15/2017 SCAN 8:10 PM BOX BRANDER VASCULAR DIAGRAM -SCAN 04/14/2017 1:20 PM BOX BRANDER VASCULAR DIAGRAM -SCAN 04/14/2017 1:20 PM BOX BRANDER POCT-ACT Routine 04/13/2017 6:46 PM BOX BRANDER POCT-ACT Routine 04/13/2017 6:10 PM BOX BRANDER POCT-ACT Routine 04/13/2017 5:32 PM BOX BRANDER POCT-ACT Routine 04/13/2017 4:33 PM BOX BRANDER POCT-ACT Routine 04/13/2017 3:40 PM BOX BRANDER ABD AO & LOWER EXT 04/13/2017 Z01.818 PRE TRP EVAL FOR ANGIOS/ POSS PPI 3:01 PM BOX BRANDER ESRD Case Notes POP6 POSS PCI L CATH & CORONARY ANGIOS 04/13/2017 Z01.818 PRE TRP EVAL FOR 3:01 PM BOX BRANDER ESRD Case Notes POP6 POSS PCI ECG 12-LEAD Routine 04/13/2017 12:35 PM BOX BRANDER Procedure Note - Interface, External Ris In - 04/13/2017 12:46 PM BOX BRANDER Ventricula r Rate 78 BPM Atrial Rate 78 BPM P-R Interval 216 ms QRS Duration 124 ms Q-T Interval 436 ms QTC Calculatio n(Bazett) 497 ms P [place] 71 degrees R [place] -27 degrees T [place] 77 degrees Sinus rhythm with 1st degree A-V block Non-specif ic intra-vent ricular conduction delay Borderline ECG When compared with ECG of 12:18, No significan t change was found ECG 12-LEAD Routine 04/13/2017 12:35 PM BOX BRANDER CBC W/PLT COUNT & AUTO Routine 04/13/2017 DIFFERENTIAL 12:01 PM BOX BRANDER BASIC METABOLIC PANEL (7) Routine 04/13/2017 12:01 PM BOX BRANDER PT/APTT Routine 04/13/2017 12:01 PM BOX BRANDER CBC W/PLT COUNT & AUTO Routine 04/13/2017 DIFFERENTIAL 12:01 PM BOX BRANDER after 03/14/2017 Results * RHYTHM STRIP - SCAN (05/04/2017 12:50 PM BOX BRANDER) Only the most recent of 2 results within the time period is included. Narrative Performed At * POC-Glucose meter (04/25/2017 7:29 AM BOX BRANDER) Only the most recent of 14 results within the time period is included. POC-Glucose Meter 199 (H)Comment: TESTED AT 70 - 110 mg/dL [facility] [address] [facility] [address] Specimen Blood Performing Organization Address City/State/Zipcode Phone Number [place] [phone] [place] [address] [facility] * CBC with platelet count + automated diff (04/25/2017 4:13 AM BOX BRANDER) Only the most recent of 5 results within the time period is included. WBC 9.0 3.5 - 10.5 K/L [facility] RBC 2.99 (L) 4.63 - 6.08 M/L [facility] Hemoglobin 9.3 (L) 13.7 - 17.5 GM/DL [facility] Hematocrit 29.2 (L) 40.1 - 51.0 % [facility] MCV 97.7 (H) 79.0 - 92.2 fL [facility] MCH 31.1 25.7 - 32.2 pg [facility] MCHC 31.8 (L) 32.3 - 36.5 GM/DL [facility] RDW 14.3 11.6 - 14.4 % [facility] Platelets 119 (L) 150 - 450 K/CU MM [facility] MPV 11.8 9.4 - 12.4 fL [facility] nRBC 0 0 - 0 /100 WBC [facility] % Neutros 64 % [facility] % Lymphs 22 % [facility] % Monos 11 % [facility] % Eos 2 % [facility] % Baso 0 % [facility] # Neutros 5.76 (H) 1.78 - 5.38 K/L [facility] # Lymphs 2.00 1.32 - 3.57 K/L [facility] # Monos 1.00 (H) 0.30 - 0.82 K/L [facility] # Eos 0.17 0.04 - 0.54 K/L [facility] # Baso 0.04 0.01 - 0.08 K/L [facility] Immature 0 0 - 1 % [facility] Granulocytes-Relative [facility] Specimen Blood - Arm, Left Performing Organization Address City/[facility] Phone Number [facility] [address] [place] [address] [facility] * Basic metabolic panel (04/25/2017 4:13 AM BOX BRANDER) Only the most recent of 6 results within the time period is included. Sodium 137 136 - 145 meq/L [facility] Potassium 4.2 3.5 - 5.1 meq/L [facility] Chloride 99 98 - 107 meq/L [facility] CO2 28 22 - 29 meq/L [facility] BUN 52 (H) 7 - 21 mg/dL [facility] Creatinine 5.41 (H) 0.57 - 1.25 mg/dL [facility] Glucose 178 (H) 70 - 105 mg/dL [facility] Calcium 8.6 8.4 - 10.2 mg/dL [facility] EGFR 11Comment: ESTIMATED GFR IS mL/min/1.73 sq m [facility] NOT ACCURATE CREATININE [facility] CLEARANCE IN PREDICTING GLOMERULAR FILTRATION RATE. ESTIMATED GFR IS NOT APPLICABLE FOR DIALYSIS PATIENTS. Specimen Blood - Arm, Left Performing Organization Address City/[facility]/Zipcode Phone Number [facility] [address] [place] [address] [facility] * XR chest 1 view portable / bedside (04/24/2017 6:09 AM BOX BRANDER) Only the most recent of 3 results within the time period is included. Narrative Performed At FINAL REPORT [facility] RAD, CHEST, 1 VIEW, NON DEPT INDICATION: pulmonary congestion COMPARISON: Prior day's exam FINDINGS: Portable frontal view of the chest. IMPRESSION: Support Lines: Caraway-Boubacar catheter has been removed. Surgical drains are present, unchanged. Lungs and pleura: Minimal left subsegmental atelectasis and trace effusion. No pneumothorax. Heart and mediastinum: Stable contours. Stable surgical changes. Additional findings: None. Signed: JR Hogan Robert MD Report Verified Date/Time:04/24/2017 06:33:56 Reading Location: [facility] B1 C013Y CT Body Reading Room Procedure Note Interface, External Ris In - 04/24/2017 6:36 AM BOX BRANDER FINAL REPORT RAD, CHEST, 1 VIEW, NON DEPT INDICATION: pulmonary congestion COMPARISON: Prior day's exam FINDINGS: Portable frontal view of the chest. IMPRESSION: Support Lines: Caraway-Boubacar catheter has been removed. Surgical drains are present, unchanged. Lungs and pleura: Minimal left subsegmental atelectasis and trace effusion. No pneumothorax. Heart and mediastinum: Stable contours. Stable surgical changes. Additional findings: None. Signed: JR Hogan Robert MD Report Verified Date/Time: 04/24/2017 06:33:56 Reading Location: [facility] C013Y CT Body Reading Room Performing Organization Address City/State/Zipcode Phone Number [facility] * Hepatitis B surface antigen (04/23/2017 11:56 PM BOX BRANDER) Only the most recent of 2 results within the time period is included. hepatitis B Surface Ag Nonreactive [facility] Specimen Blood Performing Organization Address City/[facility]/Zipcode Phone Number [facility] [address] [place] [address] [facility] * Phosphorus (04/23/2017 3:18 AM BOX BRANDER) Phosphorus 5.2 (H) 2.3 - 4.7 mg/dL [facility] Specimen Blood Performing Organization Address [facility] Hospitalcode Phone Number [facility] [address] [place] [address] [phone] [place] [address] * Magnesium (04/23/2017 3:18 AM BOX BRANDER) Magnesium 2.4 1.6 - 2.6 mg/dL [facility] Specimen Blood Performing Organization Address City/State/Zipcode Phone Number [facility] [address] [place] [address] [phone] * ANESTHESIA RICARDO (04/22/2017 4:03 PM BOX BRANDER) Narrative Performed At Gallo Bacon MD 04/22/20174:03 PM RICARDO Date: [...] Gallo Bacon MD - 04/22/2017 12:49 PM BOX BRANDER RICARDO Date: 04/22/2017 12:49 PM Sex: Male [...] fxn, thick venrtricle AORTA: No dissectoin * Potassium-Stat Lab (04/22/2017 3:54 PM BOX BRANDER) Only the most recent of 3 results within the time period is included. Potassium 3.8 3.6 - 5.5 meq/L [facility] Specimen Blood, Arterial Performing Organization Address City/[facility] Phone Number [place] [phone] [place] [address] * Sodium Na-Stat Lab (04/22/2017 3:54 PM BOX BRANDER) Only the most recent of 3 results within the time period is included. Sodium 135 135 - 148 meq/L [facility] Specimen Blood, Arterial Performing Organization Address [facility] Phone Number [address] * Glucose-Stat Lab (04/22/2017 3:54 PM BOX BRANDER) Only the most recent of 3 results within the time period is included. Glucose 198 (H) 70 - 110 mg/dL [facility] Specimen Blood, Arterial Performing Organization Address [facility] Phone Number [address] * Oxygen saturation, measured (04/22/2017 3:54 PM BOX BRANDER) O2 Saturation (Measured) 84.7 % [facility] Specimen Blood Performing Organization Address [facility] Phone Number [address] * HGB/HCT (H&H)-Stat Lab (04/22/2017 3:54 PM BOX BRANDER) Only the most recent of 3 results within the time period is included. Hemoglobin 10.7 (L) 13.0 - 16.8 g/dL [facility] Hematocrit 31.0 (L) 40.0 - 50.0 % [facility] Specimen Blood, Arterial Performing Organization Address City/[facility] [address] [facility] * Calcium, Ionized (04/22/2017 3:54 PM BOX BRANDER) Only the most recent of 2 results within the time period is included. Calcium, Ion 1.10 (L) 1.12 - 1.27 mmol/L [facility] pH, Blood 7.47 [facility] Specimen Blood Performing Organization Address City/[facility]/[place] [address] [facility] * Lactic acid, arterial, whole blood (04/22/2017 3:54 PM BOX BRANDER) Lactate, Art 1.7 0.5 - 2.2 mmol/L [facility] Specimen Blood, Arterial Narrative Performed At Effective 09/18/2015: Units/Reference Range Change [facility] New: 0.5-2.2 mmol/LPrevious: 5-20 mg/dL [facility] Performing Organization Address City/[facility] Hospital[place] [address] [facility] * CBC (Hemogram only) (04/22/2017 3:54 PM BOX BRANDER) WBC 12.2 (H) 3.5 - 10.5 K/L [facility] RBC 3.22 (L) 4.63 - 6.08 M/L [facility] Hemoglobin 10.1 (L) 13.7 - 17.5 GM/DL [facility] Hematocrit 30.2 (L) 40.1 - 51.0 % [facility] MCV 93.8 (H) 79.0 - 92.2 fL [facility] MCH 31.4 25.7 - 32.2 pg [facility] MCHC 33.4 32.3 - 36.5 GM/DL [facility] RDW 14.0 11.6 - 14.4 % [facility] Platelets 134 (L) 150 - 450 K/CU MM [facility] MPV 10.6 9.4 - 12.4 fL [facility] nRBC 0 0 - 0 /100 WBC [facility] Specimen Blood Performing Organization Address City/[facility]/Zipcode Phone Number [address] * Potassium-STAT (04/22/2017 3:54 PM BOX BRANDER) Potassium 4.1 3.5 - 5.1 meq/L [facility] Specimen Blood Performing Organization Address City/[facility] Phone Number [address] * Glucose-STAT (04/22/2017 3:54 PM BOX BRANDER) Glucose 209 (H) 70 - 105 mg/dL [facility] Specimen Blood Performing Organization Address [facility] Phone Number [address] * Blood gas, arterial (04/22/2017 3:54 PM BOX BRANDER) Only the most recent of 3 results within the time period is included. pH, Arterial 7.51 (H) 7.35 - 7.45 [facility] pCO2, Arterial 36 35 - 45 mmHg [facility] pO2, Arterial 265 (H) 80 - 90 mmHg [facility] O2 Sat, Arterial 99.7 (H) 96.0 - 97.0 % [facility] HCO3, Arterial 29 21 - 29 mmol/L [facility] Base Excess, Arterial 4.8 (H) -2.0 - 3.0 mmol/L [facility] Patient Temperature 34.5 C [facility] FIO2 60.0 % [facility] Specimen Blood, Arterial Performing Organization Address City/State/Zipcode Phone Number [facility] [address] [place] [phone] [facility] * POC ACTIVATED CLOTTING TIME (04/22/2017 2:47 PM BOX BRANDER) Only the most recent of 8 results within the time period is included. Activated Clotting Time 120Comment: TESTED AT [facility] sec [address] Specimen Blood Performing Organization Address City/[facility] Phone Number [facility] [address] [place] [address] [facility] * TRANSFUSION SERVICE REPORT - SCAN (04/21/2017 6:08 PM BOX BRANDER) Narrative Performed At * VASCULAR DIAGRAM -SCAN (04/21/2017 2:22 PM BOX BRANDER) Only the most recent of 4 results within the time period is included. Narrative Performed At * XR chest 2 views (04/20/2017 3:21 PM BOX BRANDER) Narrative Performed At FINAL REPORT GE [facility] Chest, 2 views. Clinical History: pre op Comparison Study: June 23, 2016 Findings:The heart and lungs are within normal limits.The pleural spaces are clear.No significant bony or soft tissue abnormalities are seen. Impression: No active cardiopulmonary disease. Signed: Richard Arias MD Report Verified Date/Time:04/20/2017 15:51:22 Reading Location: [address] Radiology Reading Room Procedure Note Interface, External Ris In - 04/20/2017 3:53 PM BOX BRANDER FINAL REPORT Chest, 2 views. Clinical History: pre op Comparison Study: June 23, 2016 Findings: The heart and lungs are within normal limits. The pleural spaces are clear. No significant bony or soft tissue abnormalities are seen. Impression: No active cardiopulmonary disease. Signed: Richard Arias MD Report Verified Date/Time: 04/20/2017 15:51:22 Reading Location: [address] Radiology Reading Room Performing Organization Address City[facility] Phone Number GE RIS * Type and screen, automated (04/20/2017 3:02 PM BOX BRANDER) ABO/RH AUTOMATED (BEAKER) A POSITIVE [facility] Ab Scrn NEGATIVE [facility] Specimen Blood Performing Organization Address City/[facility] Phone Number [place] [phone] [place] [address] * aPTT (04/20/2017 3:02 PM BOX BRANDER) PTT 27.3 22.5 - 36.0 seconds [facility] Specimen Blood Performing Organization Address [facility] Phone Number [place] [phone] [place] [address] * Prothrombin time/INR (04/20/2017 3:02 PM BOX BRANDER) Protime 11.9 11.7 - 14.7 seconds [facility] INR 0.9 <=5.9 [facility] Specimen Blood Narrative Performed At RECOMMENDED COUMADIN/WARFARIN INR THERAPY RANGES [facility] STANDARD DOSE: 2.0 - 3.0 Includes: PROPHYLAXIS for venous thrombosis, [facility] systemic embolization; TREATMENT for venous thrombosis and/or pulmonary embolus. HIGH RISK: Target INR is 2.5-3.5 for patients with mechanical heart valves. Performing Organization Address [facility] [place] [address] [phone] [place] [address] * Urinalysis w/ Microscopic (04/20/2017 3:01 PM BOX BRANDER) Color, UA Light Yellow [facility] Clarity, UA Clear [facility] Specific [place], UA 1.006 1.001 - 1.035 [facility] pH, UA 7.0 5.0 - 8.0 [facility] Protein, UA 50 mg/dL (A) Negative [facility] Glucose, UA 70 mg/dL (A) Negative [facility] Ketones, UA Negative Negative [facility] Bilirubin, UA Negative Negative [facility] Blood, UA Negative Negative [facility] Nitrite, UA Negative Negative [facility] Leukocytes, UA Negative Negative [facility] Urobilinogen, UA 0.2 0.2 - 1.0 mg/dL [facility] RBC, UA 0 /HPF [facility] WBC, UA 2 /HPF [facility] Squam Epithel, UA 3 /HPF [facility] Specimen Source [facility] Specimen Urine Performing Organization Address City/State/Zipcode Phone Number [facility] [address] [place] [address] [facility] * Electrocardiogram, 12-lead (04/20/2017 3:00 PM BOX BRANDER) Only the most recent of 2 results within the time period is included. Narrative Performed At Ventricular Rate 70 BPM GE MUSE Atrial Rate 70 BPM P-R Interval 214 ms QRS Duration 114 ms Q-T Interval 432 ms QTC Calculation(Bazett) 466 ms P [place] 72 degrees R [place] 7 degrees T [place] 83 degrees Sinus rhythm with 1st degree A-V block Interatrial conduction delay RsR' in V1-V2 Prolonged QT When compared with ECG of 13-APR-2017 12:35, No significant change was found Confirmed by MD SOFIA, BLANK ([id number]) on 04/21/2017 6:14:10 AM Procedure Note Interface, External Ris In - 04/21/2017 6:14 AM BOX BRANDER Ventricular Rate 70 BPM Atrial Rate 70 BPM P-R Interval 214 ms QRS Duration 114 ms Q-T Interval 432 ms QTC Calculation(Bazett) 466 ms P [place] 72 degrees R [place] 7 degrees T [place] 83 degrees Sinus rhythm with 1st degree A-V block Interatrial conduction delay RsR' in V1-V2 Prolonged QT When compared with ECG of 13-APR-2017 12:35, No significant change was found Confirmed by MD SOFIA, BLANK ([id number]) on 04/21/2017 6:14:10 AM Performing Organization Address City/State/Zipcode Phone Number GE [facility] * CARDIAC CATH REPORT - SCAN (04/15/2017 8:10 PM BOX BRANDER) Narrative Performed At * PT/aPTT (04/13/2017 12:01 PM BOX BRANDER) Protime 12.7 11.7 - 14.7 seconds [facility] INR 1.0 <=5.9 [facility] PTT 25.8 22.5 - 36.0 seconds [facility] Specimen Blood - Arm, Left Narrative Performed At RECOMMENDED COUMADIN/WARFARIN INR THERAPY RANGES [facility] STAND[facility] DOSE: 2.0 - 3.0 Includes: PROPHYLAXIS for venous thrombosis, [facility] systemic embolization; TREATMENT for venous thrombosis and/or pulmonary embolus. HIGH RISK: Target INR is 2.5-3.5 for patients with mechanical heart valves. Performing Organization Address City/State/Zipcode Phone Number [facility] [address] [place], [place] [id number] [facility] after 03/14/2017 Insurance Payer Benefit Subscriber ID Type Phone Address Plan / Group BLUE CROSS/BLUE SHIELD BCBS OS xxxxxxxxxxxx PPO [phone] [address] POS/PPO/[place] [address] O MEDICARE MEDICARE A xxxxxxxxxx Medicare B Advance Directives For more information, please contact: [facility] [address] [place], [place] [id number] Date Inactivated Comments Code Status Date Activated 04/25/2017 12:37 PM Full Code 04/22/2017 9:15 AM This code status was determined by: Patient 04/14/2017 1:23 AM Full Code 04/12/2017 9:58 PM This code status was determined by: Patient 03/01/2013 8:55 PM All possible means of support, including: cardiac massage, mechanical ventilation, and defibrillation will be used to support life. Code ONE 03/01/2013 2:12 AM
--- NOTE | 2018-03-15 09:58 | Operative Report ---
DATE OF PROCEDURE: March 15, 2018 CARDIAC REFERRAL AGENT PROCEDURE NOTE INDICATION: Stroke. PROCEDURE PERFORMED: Insertable loop recorder. DESCRIPTION OF PROCEDURE: Left anterior chest was anesthetized using subcutaneous lidocaine. A [employer] LINQ serial #[id number] was inserted subcutaneously without complications. Skin approximated using Dermabond. Patient discharged home same day. Job#: [id number]
== END | disposition home or self-care (01) ==
LOC: CATH LAB 06:46
PROVIDERS: ATTEND Internal Medicine Interventional Cardiology
DX: I69.351 Hemiplegia and hemiparesis following cerebral infarction affecting right dominant side (principal); E11.22 Type 2 diabetes mellitus with diabetic chronic kidney disease; I12.0 Hypertensive chronic kidney disease with stage 5 chronic kidney disease or end stage renal disease; N18.6 End stage renal disease; E11.42 Type 2 diabetes mellitus with diabetic polyneuropathy; Z79.4 Long term (current) use of insulin; Z99.2 Dependence on renal dialysis; E78.5 Hyperlipidemia, unspecified; K21.9 Gastro-esophageal reflux disease without esophagitis; R06.83 Snoring; I25.2 Old myocardial infarction; Z95.1 Presence of aortocoronary bypass graft; Z79.02 Long term (current) use of antithrombotics/antiplatelets; Z91.041 Radiographic dye allergy status
CPT/HCPCS: 33282; 36415 ×2; 80053; 82948; 84132; 85025; 85610; 93320; 93325; C1764; J1817; J2250; J2704; 93312

== ENCOUNTER → 2018-05-03 | Day surgery (SDC) | payer BC, MEDICARE ==
[2018-05-02 13:53] LABS: BASOPHILS # (AUTO) 0.1 (0.0-0.1); BASOPHILS % 0.8 % (0.0-1.0); EOSINOPHILS # (AUTO) 0.2 (0.0-0.4); EOSINOPHILS % 2.2 % (0.0-6.0); HEMATOCRIT 39.1 % (38.2-49.6); LYMPHOCYTES # (AUTO) 1.7 (1.0-3.2); LYMPHOCYTES % 21.4 % (18.0-39.1); MEAN CORPUSCULAR HEMOGLOBIN 33.2 pg (28-32); MEAN CORPUSCULAR HGB CONC 33.2 g/dL (31-35); MONOCYTES # (AUTO) 0.5 (0.2-0.8); MONOCYTES % 6.9 % (4.4-11.3); NEUTROPHILS # (AUTO) 5.4 (2.1-6.9); NEUTROPHILS % 68.2 % (38.7-80.0); PLATELET COUNT 237 x10e3/uL (140-360); RED BLOOD COUNT 3.91 x10e6/uL (4.3-5.7); RED CELL DISTRIBUTION WIDTH 13.9 % (11.7-14.4)
[2018-05-02 14:16] LABS: ALANINE AMINOTRANSFERASE 28 IU/L (0-55); ALBUMIN 3.9 g/dL (3.5-5.0); ALBUMIN/GLOBULIN RATIO 0.9 (0.8-2.0); ALKALINE PHOSPHATASE 118 IU/L (40-150); ANION GAP 18.8 mmol/L (8-16); BLOOD UREA NITROGEN 28 mg/dL (7-26); BUN/CREATININE RATIO 9 (6-25); CALCIUM 9.8 mg/dL (8.4-10.2); CARBON DIOXIDE 31 mmol/L (22-29); CHLORIDE 94 mmol/L (98-107); CHOL/HDL RATIO 4.2 (3.9-4.7); CHOLESTEROL 182 MD/DL (0-199); CREATININE, SERUM 3.23 mg/dL (0.72-1.25); EST GLOMERULAR FILTRATION RATE 21 ML/MIN (60-); GLUCOSE 226 mg/dL (74-118); HDL CHOLESTEROL 43 MG/DL (40-60); POTASSIUM 3.8 mmol/L (3.5-5.1); SODIUM 140 mmol/L (136-145)
[2018-05-02 14:29] LABS: TRIGLYCERIDES 564 MG/DL (0-149)
[~2018-05-03] VITALS: Ht 182.9 cm; Wt 157.9 kg
[2018-05-03] VITALS (8 sets, daily range): BP systolic 139–182; BP diastolic 75–111
[~2018-05-03] MED LIST changes: +DIPHENHYDRAMINE HCL INJ 50 MG/ML VIAL ONE; +FAMOTIDINE 20 MG/2 ML VIAL IV ONE; +HEPARIN SOD (PORCINE) 1000 UNIT/ML 30ML ONE; +HEPARIN SOD/SOD CHLORIDE 2,000 ML ONE; +HYDRALAZINE HCL 20 MG/ML VIAL ONE; -INSULIN REGULAR, HUMAN 100 UNIT/1 ML 3ML VIAL ONE; +IOPAMIDOL 370 MG/ML 200 ML INFUS..BTL INJ ONE; +LIDOCAINE HCL 2% LOCAL 20 ML VIAL ONE; +METHYLPREDNISOLONE SOD SUCC 125 MG/2ML VIAL ONE; +NITROGLYCERIN/D5W 200 MCG/ML 250 ML ONE; -PROPOFOL IV EMULSION 10 MG/ML 20 ML VIAL ONE; +VERAPAMIL HCL 2.5 MG/ML 2 ML VIAL ONE
--- OUTSIDE RECORDS SUMMARY | 2018-05-03 11:37 | XMS REPORT | Clinical Summary ---
Author Author MUKESH [facility] Address Unknown Phone Unavailable Care Team Providers Care Web Coordinator Name Role Phone MariahTito brito Jorge 3 [...] 0 (HYDRODIURIL) 25 MG mouth daily. tablet Active metoprolol (LOPRESSOR) Take 0.5 60 tablet 0 100 MG tablet tablets (50 7 mg total) by mouth 2 (two) times daily. Active miscellaneous medical 3 in 1 1 each 0 supply Misc toilet. 7 05/05/2017 oxyCODONE-acetaminophen Take 1 tablet 30 tablet 0 (PERCOCET) 10-325 mg per by mouth 7 tablet every 4 (four) hours as needed for up to 10 days. Max Daily Amount: 6 tablets 04/25/2018 aspirin 81 MG chewable Take 1 tablet 30 tablet 2 tablet (81 mg total) 7 by mouth daily. Active Problems Patient Care Coordination Note Endocrinology- Christine Rodriguez [phone] Relay Man- Petr Betancur [phone] Neurologist- Huong Lobo- [phone] Vscular Surgeon- Rafael Lebron [phone] Problem Noted Date CAD (coronary artery disease) [...] RN Kidney Transplant Pre-evaluation 09/20/2017 Telephone Transplant after 05/02/2017 Family History Medical History Relation Name Comments [...] travel history available. Last Filed Vital Signs Not on file Plan of Treatment Health Maintenance Due Date Last Done Comments INFLUENZA VACCINE 02/14/2018 Implants Device Identifier Shelf Expiration Date Model / Serial / Lot Implanted Type Area Manufactur er 01/14/2022 [id number] / NONE / [id number] Sut Surg Stl 7 18g 18in Mls Mp Star/Art N/A: Sternum J [id number] - Snone hroscopy &J:ETHICON Implanted: Qty: 3 on 04/22/2017 by Bay Luke MD Procedures Comments Procedure Name Priority Date/Time Associated Diagnosis RHYTHM STRIP - SCAN 05/04/2017 12:50 PM PRINTED CIRCUIT BOARDS SOLDER LEVELER after 05/02/2017 Results * RHYTHM STRIP - SCAN (05/04/2017 12:50 PM PRINTED CIRCUIT BOARDS SOLDER LEVELER) Narrative Performed At after 05/02/2017 Insurance Payer Benefit Subscriber ID Type Phone Address Plan / Group BLUE CROSS/BLUE SHIELD BCBS OS xxxxxxxxxxxx PPO [phone] [address] POS/PPO/[place] [address] O MEDICARE MEDICARE A xxxxxxxxxx Medicare B Advance Directives For more information, please contact: [facility] [address] [place] [address] Date Inactivated Comments Code Status Date Activated [...]
--- NOTE | 2018-05-03 15:30 | NUR ---
AMBULATED TO PREPROCEDURE AREA. AAOX3, VSS. PREPROCEDURE TEACHING PROVIDED. PREPPED PER PROCEDURE ORDERS. IV ATTEMPT X2 TO L AC & L HAND WITHOUT SUCCESS. HEMOSTASIS OBTAINED, NO HEMATOMA NOTED, COVERED BY GAUZE AND TAPE. DP/PT PULSES 2+ BILATERALLY. DENIED PAIN OR NEEDS AT THIS TIME. BED IN LOWEST POSITION, SIDE RAILS UP, CALL LIGHT WITHIN REACH.
--- NOTE | 2018-05-03 16:00 | NUR ---
RECEIVED PT IN BAY 10 POST DIAGNOSTIC C, MYNX TO RFA & RFV. SITE C/D/I NO S/S OF BLEEDING OR HEMATOMA NOTED. DP/PT PULSES 2+ BILATERALLY. POST PROCEDURE TEACHING PROVIDED TO PT AND SPOUSE. DENIED PAIN OR NEEDS AT THIS TIME. BED IN LOWEST POSITION, SIDE RAILS UP, CALL LIGHT WITHIN REACH.
--- NOTE | 2018-05-03 16:15 | NUR ---
AAOX3, VSS. SITE C/D/I NO S/S OF BLEEDING OR HEMATOMA NOTED. DP/PT PULSES 2+ BILATERALLY. DENIED PAIN OR NEEDS AT THIS TIME. BED IN LOWEST POSITION, SIDE RAILS UP, CALL LIGHT WITHIN REACH.
--- NOTE | 2018-05-03 16:30 | NUR ---
AAOX3, VSS. SITES TO RFA & RFV C/D/I NO S/S OF BLEEDING OR HEMATOMA NOTED. DP/PT PULSES 2+ BILATERALLY. DENIED PAIN OR NEEDS AT THIS TIME. BED IN LOWEST POSITION, SIDE RAILS UP, CALL LIGHT WITHIN REACH.
--- NOTE | 2018-05-03 16:45 | NUR ---
AAOX3, VSS. SITES TO RFA & RFV C/D/I NO S/S OF BLEEDING OR HEMATOMA NOTED. DP/PT PULSES 2+ BILATERALLY. TOLERATING PO INTAKE. DENIED PAIN OR NEEDS AT THIS TIME. BED IN LOWEST POSITION, SIDE RAILS UP, CALL LIGHT WITHIN REACH.
--- NOTE | 2018-05-03 17:00 | NUR ---
AAOX3, VSS. SITES TO RFA & RFV C/D/I NO S/S OF BLEEDING OR HEMATOMA NOTED. DP/PT PULSES 2+ BILATERALLY. DENIED PAIN OR NEEDS AT THIS TIME. BED IN LOWEST POSITION, SIDE RAILS UP, CALL LIGHT WITHIN REACH. FAMILY AT BEDSIDE.
--- NOTE | 2018-05-03 17:45 | NUR ---
AAOX3, VSS. AMBULATED TO BEDSIDE CHAIR. SITES TO RFA & RFV REMAINED C/D/I NO S/S OF BLEEDING OR HEMATOMA NOTED. DP/PT PULSES 2+ BILATERALLY. DENIED PAIN OR NEEDS. WRITTEN AND VERBAL DISCHARGE INSTRUCTIONS PROVIDED TO PT AND SPOUSE, VERIFIED BY RETURN DEMONSTRATION. DISCHARGED FROM UNIT IN STABLE CONDITION BY W/C TO POV WITH DAUGHTER DRIVING.
--- NOTE | 2018-07-13 04:40 | Operative Report ---
DATE OF PROCEDURE: 05/03/2018 SURGEON: Tito Lemus MD CARDIAC NON PROFIT JOB TITLES PROCEDURE NOTE INDICATION: Coronary artery disease with abnormal stress test. PROCEDURES PERFORMED: 1. Left heart catheterization, selective coronary angiography. 2. Selective cannulation of one arterial bypass central venous catheter. 3. Deployment of right femoral artery and vein Mynx closure device. COMPLICATIONS: None. RECOMMENDATIONS: Medical therapy. DESCRIPTION OF PROCEDURE: Access obtained to right femoral artery, 6-St Lucian sheath was placed. Access obtained to right femoral vein, 6-St Lucian sheath was placed for central venous access. The coronary angiography demonstrated mild disease in the left main and circumflex arteries. The mid left anterior descending artery is completely occluded. Right coronary artery distally including the right posterior descending artery diffuse 30% to 50% stenosis. Left internal mammary artery bypass to left anterior descending artery is widely patent. LV end-diastolic pressure of 14. No gradient across the aortic barbara pullback. Right groin arterial and venous sheath removed. Mynx closure device applied. The patient discharged home same day. Tito Lemus MD KSB/MODL /[id number]
== END | disposition home or self-care (01) ==
LOC: CATH LAB 11:34
PROVIDERS: ATTEND Internal Medicine Cardiovascular Disease
DX: I25.708 Atherosclerosis of coronary artery bypass graft(s), unspecified, with other forms of angina pectoris (principal); R94.39 Abnormal result of other cardiovascular function study; I10 Essential (primary) hypertension; E78.49 Other hyperlipidemia; E11.65 Type 2 diabetes mellitus with hyperglycemia; Z88.8 Allergy status to other drugs, medicaments and biological substances; Z01.812 Encounter for preprocedural laboratory examination; Z79.02 Long term (current) use of antithrombotics/antiplatelets; Z79.4 Long term (current) use of insulin; Z68.43 Body mass index [BMI] 50.0-59.9, adult; Z95.1 Presence of aortocoronary bypass graft; Z86.73 Personal history of transient ischemic attack (TIA), and cerebral infarction without residual deficits; Z82.49 Family history of ischemic heart disease and other diseases of the circulatory system
CPT/HCPCS: 36415; 80053; 80061; 85025; 93459; C1769; J0360; J1200; J1644; J2001; J2250; J2930; Q9967; C1760

== ENCOUNTER 2018-08-04 12:00 | Outpatient (RCR) | payer BC, MEDICARE ==
[~2018-08-04 12:00] MED LIST changes: -DIPHENHYDRAMINE HCL INJ 50 MG/ML VIAL ONE; -FAMOTIDINE 20 MG/2 ML VIAL IV ONE; -FENTANYL CITRATE/PF 100MCG/2 ML INJ ONE; -HEPARIN SOD (PORCINE) 1000 UNIT/ML 30ML ONE; -HEPARIN SOD/SOD CHLORIDE 2,000 ML ONE; -HYDRALAZINE HCL 20 MG/ML VIAL ONE; -IOPAMIDOL 370 MG/ML 200 ML INFUS..BTL INJ ONE; -LIDOCAINE HCL 2% LOCAL 20 ML VIAL ONE; -METHYLPREDNISOLONE SOD SUCC 125 MG/2ML VIAL ONE; -MIDAZOLAM HCL 2 MG/2 ML VIAL ONE; -NITROGLYCERIN/D5W 200 MCG/ML 250 ML ONE; -VERAPAMIL HCL 2.5 MG/ML 2 ML VIAL ONE
== END 2018-08-14 ==
LOC: OT 12:00
PROVIDERS: ATTEND Psychiatry & Neurology Clinical Neurophysiology
DX: I69.353 Hemiplegia and hemiparesis following cerebral infarction affecting right non-dominant side (principal); I63.312 Cerebral infarction due to thrombosis of left middle cerebral artery; I69.314 Frontal lobe and executive function deficit following cerebral infarction; I69.320 Aphasia following cerebral infarction
CPT/HCPCS: 92523

== ENCOUNTER → 2018-08-16 | Outpatient (CLI) | payer BC, MEDICARE ==
--- NOTE | 2018-08-16 16:23 | Diagnostic Imaging Report ---
EXAM: Modified barium swallow INDICATION: Dysphagia, CVA COMPARISON: None FINDINGS: This examination was conducted in conjunction with speech pathologist. Patient was given, by mouth, liquids and solids of various consistencies. Examination show premature spillage to the vallecula and piriform sinuses with thin liquids and juice portion of mixed mechanical soft. Laryngeal penetration was noted with thin liquids and juice portion of mixed mechanical soft diet. Trace overt aspiration of thin liquids and juice portion of mixed mechanical soft diet was noted. Fluoro time: 1.8 minutes IMPRESSION: <Penetration and trace overt aspiration of thin liquids and juice portion of mixed mechanical soft diet. Please see speech pathology report for detailed description and recommendations.> Signed by: Dr. Rodolfo Yanez M.D. on 08/16/2018 4:20 PM
== END ==
LOC: DX 11:30
PROVIDERS: ATTEND Psychiatry & Neurology Clinical Neurophysiology
DX: I69.353 Hemiplegia and hemiparesis following cerebral infarction affecting right non-dominant side (principal); I69.312 Visuospatial deficit and spatial neglect following cerebral infarction; R53.1 Weakness; R27.9 Unspecified lack of coordination
CPT/HCPCS: 74230

== ENCOUNTER 2018-09-12 13:00 | Outpatient (RCR) | payer BC, MEDICARE ==
--- NOTE | 2018-08-25 14:28 | NUR ---
Patient Name: Hua LarsenOB: 1970 Age/Sex: 48/maleOrdering Physician: Kirsten Caal MD Dysphagia, Speech, Language and Cognitive Re-Evaluation Pt seen for speech and language therapy secondary to mild expressive/receptive, cognitive deficits and oral motor weakness. Long and Short term goals and progress follow: Halfway Goal: Pt will utilize repetition and clarification with directive tasks. Short Term Goals: 1. Pt will perform diodochokinetic exercises 25 times in 15 [id number] times in 15 seconds two sessions in a row-GOAL MET 09/02/18. 2.Pt will read words and phrases with simple and complex blends with 95% % accuracy GOAL MET 08/25/18 3. Pt will participate in speech motor exercises with 90% accuracypt completed motor speech exercises levels 1-4, which included CV, CVCV, and VCV syllables, voiced and unvoiced consonants, with 100% accuracy. Pt completed level 5 exercises, which included 2-syllable VCCV, voiced and unvoiced consonants, with 100% accuracy. Pt completed level 6 exercises, which included three syllable CVCVCV voiced consonants with 100% accuracy, and level 7 exercises, which included three syllable CVCVCV voiced and unvoiced consonants with 100% accuracy. GOAL MET 08/25/18 4.Pt will follow dysarthria strategies in sessions and at home with IGOAL MET 08/18/18. 5.Pt will complete oral motor exercises in session and at home with independence GOAL MET 08/25/18 6.Pt will complete exercises in auditory memory with 80% accuracy-not addressed in this session 7.Pt will complete convergent and divergent tasks with 80% accuracy-Simple categories 100% Abstract categories 76%- continue goal with abstract categories 8.Pt will participate in reading comprehension assessment with goals to be determined- Pt recalling 5 details 95% and 1 inference 100%. continue goal with longer paragraphs and increased detail recall 9.Pt will participate in continued dx/tx as indicatednot addressed this session. 10.Pt will recall 85% short paragraphs and or retell story with 85% of details Pt at 80% recall, continue goal 11. Pt will complete written and oral directive tasks with 80% @ and be I with use of strategies Pt seen for dysphagia therapy secondary to mild pharyngeal dysphagia. Short term goals and progress follow: Reconnaissance Crewmember Goal: Pt to tolerate LRD while maintaining proper nutrition/hydration Short Term Goals: 1.Pt will complete 3 repetitions of a set of dysphagia exercises to improve laryngeal elevation, base of tongue retraction, and laryngeal closure, 10 repetitions per exercise, with minimal cuespt completed exercises with no assistance, continue goal. 2.Pt will tolerate NMES for 45 60 minutes with no clinical s/s of aspiration to improve strength of pharyngeal constrictors, hyolaryngeal excursion, and safety with po intakept tolerated 60 minutes of NMES with hard candy and thin liquids at a max of 25.0 mA. Placement 2b was used to target the mylohyoid muscle, the sternohyoid muscle, the omohyoid muscle, the geniohyoid muscle, the thyrohyoid muscle, and the superior laryngeal nerve. Channel 1 of the electrodes was aligned along midline over the geniohyoid belly and channel 2 of the electrodes was aligned horizontally on either side of the thyroid notch. This placement was used to improve base of tongue strength, hyolaryngeal excursion, and UES opening.Cough was noted X 0, throat clear X 0. Continue goal for 12 total sessions 3.Pt will complete home dysphagia exercise program targeting laryngeal elevation, base of tongue strength, and cricopharyngeal function independentlyReviewed HEP pt took notes on how to complete HEP I at home 4.Pt will follow aspiration precautions with independencept reported following aspiration precautions with independence. 5.Pt will participate in a repeat Modified Barium Swallow study to objectively re-assess swallow safety and function and determine safest dietnot yet indicated. Assessment: Pt tolerated NMES well. Pt continues to demonstrate clinical s/s of aspiration during therapy and at home. Education provided as needed, with patient indicating understanding of all information presented. Pt presented with mild expressive language deficits c/b semantic paraphasias and word finding deficits. Pt presented with mild motor speech disorder c/b imprecise consonants and decreased OM strength and agility. Apraxia vs dysarthria suspected. Pt presented with mild executive function skills c/b decreased organizational skills and STM. Prognosis favorable for improved communication skills secondary to recency of onset.No c/o pain at end of session. Recommendations: 1.Cognitive Therapy to address memory, verbal and written direction following, word definition 2.Home exercise program for continued oral motor strengthening. 3.Continued NMES to treat dysaphgia Shanta Still M.S. [facility] TIRE TECHNICIAN Date of Session: 08/25/18 Dysphagia Treatment and Speech Language Cognitive Re-Evaluation X 60 minutes Physicians signature below certifies medical necessity for these skilled interventions Physician SignatureDate NOMS Rating for Dysphagia 5
--- NOTE | 2018-09-07 14:14 | NUR ---
ST NOTE: Pt ill, will defer Speech Therapy today and schedule make up session at next visit.
== END 2018-09-13 ==
LOC: ST 13:00
PROVIDERS: ATTEND Psychiatry & Neurology Clinical Neurophysiology
DX: I69.353 Hemiplegia and hemiparesis following cerebral infarction affecting right non-dominant side (principal); I63.312 Cerebral infarction due to thrombosis of left middle cerebral artery
CPT/HCPCS: 97139

== ENCOUNTER 2018-09-19 12:51 | Outpatient (RCR) | payer BC, MEDICARE ==
--- NOTE | 2018-09-28 09:25 | NUR ---
ST NOTE: ZOEY NOMS Expressive Language level 6 upon d/c from Speech Therapy on 09/27/18.
== END 2018-10-14 ==
LOC: ST 12:51
PROVIDERS: ATTEND Psychiatry & Neurology Clinical Neurophysiology
DX: I69.353 Hemiplegia and hemiparesis following cerebral infarction affecting right non-dominant side (principal); I63.312 Cerebral infarction due to thrombosis of left middle cerebral artery

== ENCOUNTER → 2018-09-20 | Outpatient (CLI) | payer BC, MEDICARE ==
--- NOTE | 2018-09-22 17:30 | Diagnostic Imaging Report ---
PROCEDURE: X-RAY MODIFIED BARIUM SWALLOW COMPARISON: Modified barium swallow 08/16/2018. INDICATION: Dysphasia. Radiation Details: Fluoroscopy time: 1.2 minutes Cumulative dose: 1.88 mGy DISCUSSION: Fluoroscopic examination was performed in conjunction with speech pathology during swallowing a variety of thin and thick liquid consistencies. Provided images demonstrate no laryngeal penetration or aspiration. There is trace vallecular residue with puree swallow which subsequently cleared with liquids. CONCLUSION: Modified barium swallow demonstrating no laryngeal penetration or aspiration. Please refer to the speech pathology report for further details. Signed by: Dr. Shahzad Hamm MD on 09/22/2018 5:27 PM
== END ==
LOC: DX 14:16
PROVIDERS: ATTEND Psychiatry & Neurology Clinical Neurophysiology
DX: I69.353 Hemiplegia and hemiparesis following cerebral infarction affecting right non-dominant side (principal); I63.312 Cerebral infarction due to thrombosis of left middle cerebral artery
CPT/HCPCS: 74230

== ENCOUNTER 2018-09-27 12:42 | Outpatient (RCR) | payer BC, MEDICARE | END 2018-10-14 | LOC: ST 12:42 | PROVIDERS: ATTEND Specialist | DX: R13.13 Dysphagia, pharyngeal phase (principal) ==

== ENCOUNTER 2018-12-24 18:34 | Emergency (ER) | payer BC, MEDICARE ==
[~2018-12-24] VITALS: Ht 365.8 cm; Wt 157.9 kg
--- OUTSIDE RECORDS SUMMARY | 2018-12-24 18:36 | XMS REPORT | Clinical Summary ---
Author Author MUKESH [facility] Address Unknown Phone Unavailable Care Team Providers Care Hearing Officer Name Role Phone MariahTito brito Jorge 3 [...] 1 each 0 supply Misc toilet. 7 04/25/2018 aspirin 81 MG chewable Take 1 tablet 30 tablet 2 tablet (81 mg total) 7 by mouth daily. Active Problems Patient Care Coordination Note Endocrinology- Christine Rodriguez [phone] Color Print Inspector- Petr Betancur [phone] Neurologist- Huong Lobo- [phone] Vscular Surgeon- Rafael Lebron [phone] Problem Noted Date CAD (coronary artery disease) [...] Plan: No TIA for last few years. Family History Medical History Relation Name Comments [...] Signs Not on file Plan of Treatment Not on file Implants Device Identifier Shelf Expiration Date Model / Serial / Lot Implanted Type Area Manufactur er 01/14/2022 M655G / NONE / [id number] Sut Surg Stl 7 18g 18in Mls Mp [place]/Art N/A: Sternum J M655g - Snone hroscopy &J:ETHICON Implanted: Qty: 3 on 04/22/2017 by Bay Luke MD Results Not on fileafter 12/23/2017 Insurance Payer Benefit Subscriber ID Type Phone Address Plan / Group BLUE CROSS/BLUE SHIELD BCBS OS xxxxxxxxxxxx PPO [phone] [address] POS/PPO/[place] [address] O MEDICARE MEDICARE A xxxxxxxxxx Medicare B Advance Directives For more information, please contact: [facility] [address] [place] [address] Date Inactivated Comments Code Status Date [...]
[2018-12-24 19:03] LABS: BASOPHILS # (AUTO) 0.1 (0.0-0.1); BASOPHILS % 0.9 % (0.0-1.0); EOSINOPHILS # (AUTO) 0.2 (0.0-0.4); EOSINOPHILS % 1.8 % (0.0-6.0); HEMATOCRIT 42.7 % (38.2-49.6); HEMOGLOBIN 14.2 g/dL (14.0-18.0); LYMPHOCYTES # (AUTO) 2.3 (1.0-3.2); MEAN CORPUSCULAR HEMOGLOBIN 32.4 pg (28-32); MEAN CORPUSCULAR HGB CONC 33.3 g/dL (31-35); MEAN CORPUSCULAR VOLUME 97.5 fL (81-99); MONOCYTES % 10.8 % (4.4-11.3); NEUTROPHILS # (AUTO) 5.6 (2.1-6.9); PLATELET COUNT 219 x10e3/uL (140-360); RED BLOOD COUNT 4.38 x10e6/uL (4.3-5.7); RED CELL DISTRIBUTION WIDTH 15.1 % (11.7-14.4)
[2018-12-24 19:13] LABS: INR 0.85; PROTHROMBIN TIME 12.1 seconds (11.9-14.5)
[2018-12-24 19:23] LABS: ALBUMIN/GLOBULIN RATIO 1.1 (0.8-2.0); ANION GAP 23.3 mmol/L (8-16); CALCIUM 9.4 mg/dL (8.4-10.2); CREATININE, SERUM 6.24 mg/dL (0.72-1.25); POTASSIUM 4.3 mmol/L (3.5-5.1)
--- NOTE | 2018-12-24 19:36 | Diagnostic Imaging Report ---
Exam: Head CT without contrast History: Numbness and weakness Comparison studies: Head CT 03/04/2018 Technique: Axial images were obtained from the skull base to the vertex. Coronal and sagittal images reconstructed from the axial data. Dose modulation, iterative reconstruction, and/or weight based adjustment of the mA/kV was utilized to reduce the radiation dose to as low as reasonably achievable. Radiation dose: Total DLP: 921 mGy*cm. Estimated effective dose: DLP x 0.015 Intravenous contrast: None Findings: Scalp: No abnormalities. Bones: No fractures, blastic or lytic lesions. Brain sulci: Appropriate for age. Ventricles: Normal in size and configuration. No hydrocephalus. Extra-axial spaces: No masses, no fluid collection. Parenchyma: No mass, acute hemorrhage or acute cortical vascular insults. A few subtle hypodensities in the supratentorial white matter are nonspecific but may reflect chronic microvascular ischemic changes. Sellar/suprasellar region: No abnormalities. Craniocervical junction: Patent foramen magnum. No Chiari one malformation. Incidental findings: Atherosclerotic calcifications in the carotid siphons. IMPRESSION: 1. No acute intracranial abnormalities. 2. Mild chronic microvascular ischemic changes. 3. No changes from the prior head CT of 03/04/2018. Signed by: Dr. Gaston Torres M.D. on 12/24/2018 7:32 PM
[2018-12-24 19:43] LABS: CREATINE KINASE MB 4.9 ng/mL (0-5.0); THYROID STIMULATING HORMONE 1.601 uIU/mL (0.350-4.940)
--- NOTE | 2018-12-24 20:22 | Diagnostic Imaging Report ---
EXAM: CHEST SINGLE (PORTABLE), AP 1 view INDICATION: Stroke. COMPARISON: None FINDINGS: LINES/TUBES: None LUNGS: No consolidations or edema. PLEURA: No effusions or pneumothorax. HEART AND MEDIASTINUM: Normal size and contour. BONES AND SOFT TISSUES: No acute findings. Lower sternotomy wires. IMPRESSION: No acute thoracic abnormality. Signed by: Dr. Scot Kay M.D. on 12/24/2018 8:19 PM
[2018-12-24] MEDS ORDERED: ACETAMINOPHEN 325 MG TAB PO STA (20:39)
--- NOTE | 2018-12-24 20:50 | NUR ---
pt given 650mg of tylenol for c/o headache
== END 2018-12-24 22:37 | disposition left against medical advice (07) ==
LOC: ER 18:34
DX: R55 Syncope and collapse (principal); R53.1 Weakness; R20.0 Anesthesia of skin; I12.0 Hypertensive chronic kidney disease with stage 5 chronic kidney disease or end stage renal disease; E11.22 Type 2 diabetes mellitus with diabetic chronic kidney disease; N18.6 End stage renal disease; Z99.2 Dependence on renal dialysis; E78.5 Hyperlipidemia, unspecified; K21.9 Gastro-esophageal reflux disease without esophagitis; Z95.1 Presence of aortocoronary bypass graft; Z86.73 Personal history of transient ischemic attack (TIA), and cerebral infarction without residual deficits
CPT/HCPCS: 36415; 70450; 71045; 80053; 82550; 82553; 83880; 84443; 84484; 85025; 85610; 85730; 93005; 99284

== ENCOUNTER 2020-04-26 17:33 | Observation (INO) | payer MEDICARE, BC ==
[~2020-04-26] VITALS: Ht 182.9 cm; Wt 154.3 kg
[2020-04-26 18:39] LABS: BASOPHILS # (AUTO) 0.1 (0.0-0.1); BASOPHILS % 0.9 % (0.0-1.0); EOSINOPHILS # (AUTO) 0.3 (0.0-0.4); EOSINOPHILS % 2.6 % (0.0-6.0); HEMOGLOBIN 13.9 g/dL (14.0-18.0); LYMPHOCYTES # (AUTO) 2.7 (1.0-3.2); LYMPHOCYTES % 20.9 % (18.0-39.1); MEAN CORPUSCULAR HEMOGLOBIN 30.8 pg (28-32); MEAN CORPUSCULAR HGB CONC 33.1 g/dL (31-35); MEAN CORPUSCULAR VOLUME 93.1 fL (81-99); MONOCYTES % 7.6 % (4.4-11.3); NEUTROPHILS # (AUTO) 8.5 (2.1-6.9); NEUTROPHILS % 66.7 % (38.7-80.0); PLATELET COUNT 285 x10e3/uL (140-360); RED BLOOD COUNT 4.51 x10e6/uL (4.3-5.7)
[2020-04-26 18:54] LABS: ALBUMIN/GLOBULIN RATIO 0.9 (0.8-2.0); ANION GAP 20.9 mmol/L (8-16); CALCIUM 9.9 mg/dL (8.4-10.2); CREATININE, SERUM 4.81 mg/dL (0.72-1.25)
[2020-04-26 18:57] LABS: POTASSIUM 2.9 mmol/L (3.5-5.1)
[2020-04-26] MEDS ORDERED: POTASSIUM CHLORIDE 20 MEQ TAB CR PO STA (19:57)
[2020-04-27] VITALS (10 sets, daily range): BP systolic 114–167; BP diastolic 66–93
[2020-04-27 06:17] LABS: BASOPHILS # (AUTO) 0.1 (0.0-0.1); BASOPHILS % 0.9 % (0.0-1.0); EOSINOPHILS # (AUTO) 0.1 (0.0-0.4); EOSINOPHILS % 1.1 % (0.0-6.0); HEMATOCRIT 39.7 % (38.2-49.6); HEMOGLOBIN 13.2 g/dL (14.0-18.0); LYMPHOCYTES % 17.4 % (18.0-39.1); MEAN CORPUSCULAR HEMOGLOBIN 30.9 pg (28-32); MEAN CORPUSCULAR HGB CONC 33.2 g/dL (31-35); NEUTROPHILS # (AUTO) 8.1 (2.1-6.9); PLATELET COUNT 245 x10e3/uL (140-360); RED BLOOD COUNT 4.27 x10e6/uL (4.3-5.7); RED CELL DISTRIBUTION WIDTH 13.8 % (11.7-14.4)
[2020-04-27 06:59] LABS: ANION GAP 19.2 mmol/L (8-16); CALCIUM 8.9 mg/dL (8.4-10.2); CREATININE, SERUM 5.92 mg/dL (0.72-1.25); POTASSIUM 4.2 mmol/L (3.5-5.1)
[2020-04-27] MEDS ORDERED: ACETAMINOPHEN 325 MG TAB PO PRN (08:45)
[2020-04-27] MEDS ORDERED: DOCUSATE SODIUM 100 MG CAP PO PRN (08:45)
[2020-04-27] MEDS ORDERED: ONDANSETRON HCL INJ 2MG/ML 2ML 2 MG/ML VIAL IV PRN (08:45)
[2020-04-27] MEDS ORDERED: ATORVASTATIN 20 MG TAB PO SCH (09:00)
[2020-04-27] MEDS ORDERED: CLOPIDOGREL BISULFATE 75 MG TAB PO SCH (09:00)
[2020-04-27 09:23] LABS: CHOL/HDL RATIO 3.9 (3.9-4.7)
[2020-04-27] MEDS: TORSEMIDE 10 MG TAB PO SCH ×2 (10:15→16:10)
[2020-04-27] MEDS: GABAPENTIN 100 MG CAP PO SCH ×2 (10:15→16:10)
[2020-04-27] MEDS: LANTHANUM CARBONATE 1000 MG PO SCH ×2 (13:01→16:10)
[2020-04-27] MEDS: INSULIN LISPRO 100 UNIT/1 ML 3ML VIAL SQ SCH ×2 (13:04→16:12)
[2020-04-27] MEDS ORDERED: FAMOTIDINE 20 MG TAB PO SCH (16:30)
[2020-04-27] MEDS ORDERED: INSULIN LISPRO 100 UNIT/1 ML 3ML VIAL SQ ONE (19:45)
[2020-04-27] MEDS ORDERED: ZOLPIDEM TARTRATE 5 MG TAB PO PRN (21:00)
[2020-04-27] MEDS ORDERED: TOUJEO SQ SCH (21:00)
[2020-04-27] MEDS ORDERED: FENOFIBRATE 145 MG TAB PO SCH (21:00)
== END 2020-04-27 20:27 | disposition home or self-care (01) ==
LOC: ER 17:58 → ERHOLD 21:29 → MED/SURG3 22:39
PROVIDERS: ADMIT Internal Medicine; ATTEND Internal Medicine
DX: R55 Syncope and collapse (principal); E87.6 Hypokalemia; E11.22 Type 2 diabetes mellitus with diabetic chronic kidney disease; I12.0 Hypertensive chronic kidney disease with stage 5 chronic kidney disease or end stage renal disease; N18.6 End stage renal disease; Z99.2 Dependence on renal dialysis; E11.21 Type 2 diabetes mellitus with diabetic nephropathy; Z86.73 Personal history of transient ischemic attack (TIA), and cerebral infarction without residual deficits; E87.1 Hypo-osmolality and hyponatremia; I25.10 Atherosclerotic heart disease of native coronary artery without angina pectoris; E66.01 Morbid (severe) obesity due to excess calories; Z68.42 Body mass index [BMI] 45.0-49.9, adult; R26.9 Unspecified abnormalities of gait and mobility; Z20.828 Contact with and (suspected) exposure to other viral communicable diseases; Z79.4 Long term (current) use of insulin
CPT/HCPCS: 36415 ×2; 70450; 71045; 80048; 80053; 80061; 82948; 83036; 83880; 84484; 85025 ×2; 93005; 93306; 97116; 97161; 97530; 99284; G0378 ×2; U0002

== ENCOUNTER 2021-05-06 18:15 | Emergency (ER) | payer MEDICARE, BC ==
[~2021-05-06] VITALS: Ht 182.9 cm; Wt 167.8 kg
[2021-05-06] MEDS ORDERED: HYDROCODONE/APAP 7.5MG-325MG 1 EA TAB PO ONE (18:45)
[2021-05-06] MEDS ORDERED: METHOCARBAMOL 750 MG TAB PO ONE (18:45)
[2021-05-06] MEDS ORDERED: METHOCARBAMOL750 MG PO (19:23)
== END 2021-05-06 20:32 | disposition home or self-care (01) ==
LOC: ER 18:35
DX: M54.9 Dorsalgia, unspecified (principal); G89.29 Other chronic pain; M47.816 Spondylosis without myelopathy or radiculopathy, lumbar region; I12.0 Hypertensive chronic kidney disease with stage 5 chronic kidney disease or end stage renal disease; E11.22 Type 2 diabetes mellitus with diabetic chronic kidney disease; N18.6 End stage renal disease; Z99.2 Dependence on renal dialysis; D64.9 Anemia, unspecified; K21.9 Gastro-esophageal reflux disease without esophagitis; E78.5 Hyperlipidemia, unspecified; Z95.1 Presence of aortocoronary bypass graft
CPT/HCPCS: 72100; 99283

== ENCOUNTER 2023-12-20 13:39 | Observation (INO) | payer MEDICARE, BC ==
[~2023-12-20] VITALS: Ht 365.8 cm; Wt 167.8 kg
[2023-12-20] VITALS (8 sets, daily range): BP systolic 169; BP diastolic 93; PULSE 71–80; RESP 18–20; TEMP 97.5–98.1; O2SAT 96–100
[~2023-12-20 13:39] MED LIST changes: +METHOCARBAMOL750 MG PO
[2023-12-20 15:06] LABS: BASOPHILS # (AUTO) 0.1 (0.0-0.1); EOSINOPHILS # (AUTO) 0.2 (0.0-0.4); EOSINOPHILS % 2.3 % (0.0-6.0); HEMATOCRIT 32.6 % (38.2-49.6); HEMOGLOBIN 10.7 g/dL (14.0-18.0); LYMPHOCYTES # (AUTO) 1.1 (1.0-3.2); LYMPHOCYTES % 12.5 % (18.0-39.1); MEAN CORPUSCULAR HGB CONC 32.8 g/dL (31-35); MEAN CORPUSCULAR VOLUME 103.5 fL (81-99); MONOCYTES # (AUTO) 0.8 (0.2-0.8); MONOCYTES % 9.8 % (4.4-11.3); NEUTROPHILS # (AUTO) 6.2 (2.1-6.9); PLATELET COUNT 317 x10e3/uL (140-360); RED BLOOD COUNT 3.15 x10e6/uL (4.3-5.7); RED CELL DISTRIBUTION WIDTH 14.2 % (11.7-14.4)
[2023-12-20 15:15] LABS: INR 0.95; PROTHROMBIN TIME 13.4 seconds (11.9-14.5)
[2023-12-20 15:17] LABS: PARTIAL THROMBOPLASTIN TIME 85.8 seconds (23.8-35.5)
[2023-12-20 15:20] LABS: ANION GAP 24.2 mmol/L (8-16); CREATININE, SERUM 7.78 mg/dL (0.72-1.25); POTASSIUM 5.2 mmol/L (3.5-5.1)
[2023-12-20] MEDS: SOD POLYSTYRENE SULFONATE SUSP 15 GM/60 ML BTL PO STA (18:39)
[2023-12-20] MEDS: LACTULOSE SYRUP 20 GM/30 ML UDC PO ONE (18:39)
[2023-12-20] MEDS ORDERED: GABAPENTIN300 MG PO (19:55)
[2023-12-20] MEDS ORDERED: HUMALOG (19:55)
[2023-12-20] MEDS ORDERED: AURYXIA210 MG PO (19:55)
[2023-12-20] MEDS ORDERED: VITAMIN D325 MCG PEG (19:55)
[2023-12-20] MEDS ORDERED: NIFEDIPINE ER30 M1 PO (19:55)
[2023-12-20] MEDS ORDERED: MELATONIN 5 MG TABLET PO PRN (21:30)
[2023-12-20] MEDS ORDERED: DEXTROSE 50% SYRINGE 50 ML IV PRN (21:30)
[2023-12-20] MEDS ORDERED: FAMOTIDINE 20 MG TAB PO PRN (21:30)
[2023-12-21 05:59] LABS: BASOPHILS # (AUTO) 0.1 (0.0-0.1); BASOPHILS % 0.7 % (0.0-1.0); EOSINOPHILS # (AUTO) 0.3 (0.0-0.4); HEMOGLOBIN 9.6 g/dL (14.0-18.0); LYMPHOCYTES % 14.8 % (18.0-39.1); MEAN CORPUSCULAR HEMOGLOBIN 33.2 pg (28-32); MEAN CORPUSCULAR VOLUME 103.8 fL (81-99); MONOCYTES # (AUTO) 0.7 (0.2-0.8); MONOCYTES % 9.5 % (4.4-11.3); NEUTROPHILS # (AUTO) 4.9 (2.1-6.9); NEUTROPHILS % 70.6 % (38.7-80.0); PLATELET COUNT 283 x10e3/uL (140-360); RED BLOOD COUNT 2.89 x10e6/uL (4.3-5.7); RED CELL DISTRIBUTION WIDTH 13.8 % (11.7-14.4); WHITE BLOOD COUNT 6.94 x10e3/uL (4.8-10.8)
[2023-12-21 06:35] LABS: ANION GAP 20.5 mmol/L (8-16); CALCIUM 9.1 mg/dL (8.4-10.2); CREATININE, SERUM 8.05 mg/dL (0.72-1.25); POTASSIUM 4.5 mmol/L (3.5-5.1)
[2023-12-21] MEDS: INSULIN REGULAR, HUMAN 100 UNIT/1 ML SQ SCH (07:30)
[2023-12-21] MEDS: ACETAMINOPHEN 325 MG TAB PO PRN (07:37)
[2023-12-21] MEDS ORDERED: FERRIC CITRATE PO SCH (08:00)
[2023-12-21 08:12] VITALS: PULSE 83; RESP 18; O2SAT 97
[2023-12-21 08:34] VITALS: BP 180/82; PULSE 80; RESP 18; TEMP 97.7; O2SAT 100
[2023-12-21] MEDS ORDERED: GABAPENTIN 300 MG CAP PO SCH (09:00)
[2023-12-21] MEDS: CHOLECALCIFEROL 1,000 UNIT TAB PEG SCH (09:32)
[2023-12-21] MEDS: NIFEDIPINE CR 30 MG TAB PO SCH (09:32)
[2023-12-21 11:53] VITALS: BP 159/78; PULSE 75; RESP 18; TEMP 98.5; O2SAT 100
[2023-12-21 12:00] VITALS: BP 159/78; PULSE 75; RESP 18; TEMP 98.5; O2SAT 100
[2023-12-21] MEDS ORDERED: SODIUM CHLORIDE 0.9% 250ML 500 ML IV PRN (12:00)
[2023-12-21] MEDS ORDERED: SODIUM CHLORIDE 0.9% 1000ML 2,000 ML IV PRN (12:00)
[2023-12-22 07:00] LABS: HEPATITIS B CORE AB TOTAL Negative; HEPATITIS B SURFACE AG (P) Negative
== END 2023-12-21 16:05 | disposition home or self-care (01) ==
LOC: ER 14:05 → ERHOLD 16:14 → MED/SURG3 18:08
PROVIDERS: ADMIT Family Medicine Adult Medicine; ATTEND Family Medicine Adult Medicine
DX: T82.838A Hemorrhage due to vascular prosthetic devices, implants and grafts, initial encounter (principal); Y84.1 Kidney dialysis as the cause of abnormal reaction of the patient, or of later complication, without mention of misadventure at the time of the procedure; Y92.538 Other ambulatory health services establishments as the place of occurrence of the external cause; I12.0 Hypertensive chronic kidney disease with stage 5 chronic kidney disease or end stage renal disease; E11.22 Type 2 diabetes mellitus with diabetic chronic kidney disease; N18.6 End stage renal disease; Z79.4 Long term (current) use of insulin; Z99.2 Dependence on renal dialysis; E78.5 Hyperlipidemia, unspecified; E66.01 Morbid (severe) obesity due to excess calories; K21.9 Gastro-esophageal reflux disease without esophagitis; Z71.3 Dietary counseling and surveillance; Z11.52 Encounter for screening for COVID-19; Z87.891 Personal history of nicotine dependence; Z71.81 Spiritual or religious counseling; I25.2 Old myocardial infarction; Z86.73 Personal history of transient ischemic attack (TIA), and cerebral infarction without residual deficits; Z79.899 Other long term (current) drug therapy; I25.10 Atherosclerotic heart disease of native coronary artery without angina pectoris; Z95.1 Presence of aortocoronary bypass graft; Z79.02 Long term (current) use of antithrombotics/antiplatelets
CPT/HCPCS: 36415 ×2; 80048 ×2; 85025 ×2; 85610; 85730; 86704; 86706; 87340; 93931; 93971; 94799 ×2; 99284; G0257; G0378 ×2; J7030; U0002